=== PATIENT | male | born 1970 | race Caucasian/White ===

== ENCOUNTER 2016-03-09 18:02 | Inpatient (IN) | payer OTHER ==
[~2016-03-09] VITALS: Ht 185.4 cm; Wt 108.9 kg
[~2016-03-09 18:02] MED LIST: ABILIFY10 M1 PO; ASPIRIN EC81 M1 PO; ATENOLOL50 M1 PO; CLONAZEPAM2 M2 PO; CLONAZEPAM2 MG PO; CYCLOBENZAPRINE10 MG PO; DEPAKOTE ER500 M1 PO; DEPAKOTE500 MG PO; DIAZEPAM10 M1 PO; DIVALPROEX SOD500 M3 PO; DOLOPHINE HCL10 M1 PO; KLONOPIN 1MG TAB1 MG PO; KLONOPIN2 M1 PO; METHADONE H5 MG/5 M2 PO; METHADONE HCL10 M1 PO; METHADONE10 MG/5 M1 PO; MIRTAZAPINE15 M2 PO; MOTRIN IB200 M1 PO; MULTI-DAY VITA1 EACH PO; MULTIVITAMIN1 TAB PO; PHENOBARBITAL60 MG PO; PROPRANOLOL HCL10 M1 PO; PROTONIX40 M3 PO; REMERON30 M3 PO; SEROQUEL (MONO200 MG PO; SEROQUEL100 M1 PO; SEROQUEL300 M1 PO; SEROQUEL300 MG PO; SEROQUEL400 M1; SEROQUEL50 MG PO; TRAZODONE HCL150 M1 PO
--- NOTE | 2016-03-09 18:08 | NUR ---
STATES "I WANT TO KILL MYSELF". "I NEED TO TALK TO SOME ONE. I HAVE STUFF GOING ON". HAS NO SPECIFIC PLAN. DENIES HI. STATES HE WAS ADMITTED LAST MONTH TO [facility].
--- NOTE | 2016-03-09 18:16 | NUR ---
PT AMBULATORY TO ROOM # 13, SECURITY CALLED FOR WANDING, SITTER AT DOORWAY.
--- NOTE | 2016-03-09 18:23 | ED PSYCHIATRIC COMPLAINT ---
History of Present Illness General Chief Complaint: Psychiatric Related Complaint Stated Complaint: +SI Source: patient Exam Limitations: no limitations Allergies Coded Allergies: carbamazepine (From TEGRETOL) (Intermediate, HIVES 01/12/16) phenytoin (Intermediate, HIVES 01/12/16) sertraline (SUICIDAL THOUGHTS 01/12/16) Reconcile Medications Aspirin (Ecotrin*) 81 MG TABLET.DR 1 TAB PO DAILY HEART/BLOOD (Reported) Atenolol 50 MG TABLET 1 TAB PO DAILY BP (Reported) Clonazepam (Klonopin) 1 MG TABLET 1 TAB PO BID ANXIETY (Reported) Divalproex Sodium (Depakote ER) 500 MG TAB.ER.24H 2 TAB PO BID SEIZURES ( Reported) Ibuprofen (Motrin Ib) 200 MG TABLET 800 MG PO DAILY PAIN (Reported) Methadone Hydrochloride (Methadone HCl) 10 MG TABLET 100 MG PO DAILY PAIN CONTROL (Reported) Mirtazapine (Remeron) 30 MG TABLET 75 MG PO QPM SLEEP (Reported) Multivitamin (Multi-Day Vitamins) 1 EACH TABLET 1 TAB PO DAILY VITAMIN ( Reported) Quetiapine Fumarate (Seroquel) 50 MG TABLET 1 TAB PO QPM SLEEP (Reported) Triage Note: STATES "I WANT TO KILL MYSELF". "I NEED TO TALK TO SOME ONE. I HAVE STUFF GOING ON". HAS NO SPECIFIC PLAN. DENIES HI. Triage Nurses Notes Reviewed? yes HPI: This patient is a 45-year-old male with a past medical history including substance abuse and hepatitis C as well as depression and anxiety who presented to the emergency department today for chief complaint of, "I want to hurt myself." The patient reports over the last 2 days he has been feeling increasingly more anxious and has been having thoughts of harming himself. He reported that in the past he tried overdosing. He reported that he does not have a specific plan this time but, "I am just thinking crazy." When asked if he wants to harm anyone else he reported, "now not really." The patient denied any alcohol or illicit drug use. He reported that he is currently on methadone maintenance and takes Clonopin. The patient reported that he recently found out that he may have liver cancer which he thinks may have triggered his anxiety. The patient denied any fevers, chills, chest pain, difficulty breathing, or abdominal pain. (TRENT RODGERS PA-C) Vital Signs & Intake/Output Vital Signs & Intake/Output Vital Signs Date Time Temp Pulse Resp B/P Pulse O2 O2 Flow FiO2 Ox Delivery Rate 03/11 1542 55 119/76 03/11 1223 59 118/56 03/11 0727 97.1 60 118/77 03/10 1957 96.6 57 125/75 03/10 1555 56 141/76 Past History Travel History Traveled to [place] past 21 day No Medical History Any Pertinent Medical History? 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 No (TRENT RODGERS PA-C) Review of Systems Review of Systems Constitutional: Reports: no symptoms. EENTM: Reports: no symptoms. Respiratory: Reports: no symptoms. Cardiovascular: Reports: no symptoms. GI: Reports: no symptoms. Genitourinary: Reports: no symptoms. Musculoskeletal: Reports: no symptoms. Skin: Reports: no symptoms. Neurological/Psychological: Reports: see HPI. All Other Systems: Reviewed and Negative (TRENT RODGERS PA-C) Physical Exam Physical Exam General Appearance: well developed/nourished, no apparent distress, alert, awake Neurological/Psychiatric: no motor/sensory deficits, awake, alert, calm, visually impaired teacher II- XII nml as tested, depressed affect, oriented x 3 Comments: Well-developed well-nourished person in no acute distress HEENT: Normal EENT exam, head normocephalic, moist mucous membranes Neck: Supple, no lymphadenopathy Back: Normal gait. Normal inspection Cardiovascular: Regular rate and rhythm with no murmurs, rubs, or gallops Respiratory: No respiratory distress. Breath sounds clear to auscultation bilaterally Extremity: Normal and equal pulses. Neuro: Alert oriented x3, cranial nerves II through XII grossly intact. Skin: No appreciable rash on exposed skin, skin is warm and dry. Psych: Mood and affect is normal SAD PERSONS Done? yes (VISHAL CARVALHO,TRENT) Progress Differential Diagnosis: drug intoxication, drug overdose, drug withdrawal, electrolyte abnormality, encephalitis, major depressive disorder, generalized anxiety disorder (TRENT RODGERS PA-C) Plan of Care: Orders Procedure Date/time Status INIT HSP (30 MIN) 03/10 UNK Complete Current Medications Sig/Greg Start time Last Medication Dose Stop Time Status Admin Quetiapine Fumarate 300 MG AT BEDTIME 03/11 2200 AC (Seroquel) Acetaminophen 650 MG Q4P PRN 03/09 2029 AC (Tylenol) Al Hydroxide/Mg 30 ML Q4-6 PRN PRN 03/09 2029 AC Hydroxide (Maalox Plus) Departure Departure Disposition: STILL A PATIENT Condition: Stable Clinical Impression Primary Impression: Depression Qualifiers: Depression Type: unspecified Qualified Code: F32.9 - Major depressive disorder, single episode, unspecified Referrals: PATIENT HAS NO PRIMARY CARE DR Departure Forms: Customer Survey General Discharge Information Psych Admission Note Psychiatric Admission: I have seen and evaluated HEATHER DE LA ROSA. I have also reviewed all the pertinent lab results and diagnostic results. HEATHER DE LA ROSA will be admitted to our inpatient Psychiatric unit for treatment and care. (TRENT RODGERS PA-C) PA/BIOFUELS PLANT OPERATIONS ENGINEER Co-Sign Statement Statement: ED Attending supervision documentation- [] I saw and evaluated the patient. I have also reviewed all the pertinent lab results and diagnostic results. I agree with the findings and the plan of care as documented in the PA's/BIOFUELS PLANT OPERATIONS ENGINEER's documentation. [x] I have reviewed the ED Record and agree with the PA's/BIOFUELS PLANT OPERATIONS ENGINEER's documentation. [] Additions or exceptions (if any) to the PAs/BIOFUELS PLANT OPERATIONS ENGINEER's note and plan are summarized below: [] (ROB BARCLAY DO) (Tylenol) Al Hydroxide/Mg 30 ML Q4-6 PRN PRN 03/09 2029 AC Hydroxide (Maalox Plus) Ibuprofen 400 MG Q6P PRN 03/09 2029 AC (Motrin) Magnesium Hydroxide 30 ML Q6-PRN PRN 03/09 2029 AC (Milk Of Magnesia) Laboratory Tests 03/09/16 1832: Urine Opiates Screen < 100.00, Methadone Screen > 735 H, Barbiturate Screen < 60, Ur Phencyclidine Scrn 7.00, Amphetamines Screen 172, U Benzodiazepines Scrn 193, Urine Cocaine Screen < 50, Urine Cannabis Screen < 5.00 03/09/16 1826: Anion Gap 9, Estimated GFR > 60, BUN/Creatinine Ratio 31.1 H, Glucose 85, Calcium 9.7, Total Bilirubin 0.7, AST 50, ALT 56, Alkaline Phosphatase 51, Total Protein 7.9, Albumin 4.4, Globulin 3.5, Albumin/Globulin Ratio 1.3, CBC w Diff NO MAN DIFF REQ, RBC 4.76, MCV 90.8, MCH 30.6, RDW 13.4, MPV 8.3, Gran % 60.8, Lymphocytes % 26.7, Monocytes % 11.5 H, Eosinophils % 0.8, Basophils % 0.2, Absolute Granulocytes 3.1, Absolute Lymphocytes 1.3, Absolute Monocytes 0.6, Absolute Eosinophils 0, Absolute Basophils 0, PUBS MCHC 33.7, Valproic Acid 37.1 L, Serum Alcohol < 10.0 Departure Departure Disposition: STILL A PATIENT Condition: Stable Clinical Impression Primary Impression: Depression Qualifiers: Depression Type: unspecified Qualified Code: F32.9 - Major depressive disorder, single episode, unspecified Referrals: PATIENT HAS NO PRIMARY CARE DR Departure Forms: Customer Survey General Discharge Information Psych Admission Note Psychiatric Admission: I have seen and evaluated HEATHER DE LA ROSA. I have also reviewed all the pertinent lab results and diagnostic results. HEATHER DE LA ROSA will be admitted to our inpatient Psychiatric unit for treatment and care. (VISHAL CARVALHO,TRENT) PA/BIOFUELS PLANT OPERATIONS ENGINEER Co-Sign Statement Statement: ED Attending supervision documentation- [] I saw and evaluated the patient. I have also reviewed all the pertinent lab results and diagnostic results. I agree with the findings and the plan of care as documented in the PA's/BIOFUELS PLANT OPERATIONS ENGINEER's documentation. [x] I have reviewed the ED Record and agree with the PA's/BIOFUELS PLANT OPERATIONS ENGINEER's documentation. [] Additions or exceptions (if any) to the PAs/BIOFUELS PLANT OPERATIONS ENGINEER's note and plan are summarized below: [] (ROB BARCLAY DO
[2016-03-09 18:37] LABS: ABSOLUTE BASOPHIL COUNT 0 /CUMM (0.0-0.2); ABSOLUTE EOSINOPHIL COUNT 0 /CUMM (0.0-0.7); ABSOLUTE GRANULOCYTE CT 3.1 /CUMM (1.4-6.5); ABSOLUTE LYMPH COUNT 1.3 /CUMM (1.2-3.4); ABSOLUTE MONOCYTE COUNT 0.6 /CUMM (0.10-0.60); BASOPHIL % 0.2 % (0.0-2.0); EOSINOPHIL % 0.8 % (0-5); GRANULOCYTE % 60.8 % (42.2-75.2); HEMATOCRIT 43.2 % (42-52); MEAN CORPUSCULAR HGB 30.6 PG (27.0-31.0); MEAN CORPUSCULAR HGB CONC 33.7 G/DL (33.0-37.0); MEAN CORPUSCULAR VOLUME 90.8 FL (80.0-94.0); MEAN PLATELET VOLUME 8.3 FL (7.4-10.4); PLATELET COUNT 192 /CUMM (130-400); RBC DISTRIBUTION WIDTH 13.4 % (11.5-14.5); RED BLOOD CELL CT 4.76 /CUMM (4.70-6.10); WHITE BLOOD CELL COUNT 5.1 /CUMM (4.8-10.8)
--- NOTE | 2016-03-09 18:39 | NUR ---
2 personal belongings put into closet and 1 Valuables bag put into ED safe
--- NOTE | 2016-03-09 19:01 | NUR ---
VERIFIED MEDS WITH PT. DAHLIA BURDETT IN [place] # [phone] CALLED AND SPOKE WITH SHELLY TO VERIFY PT'S METHADONE DOSE, WHICH HE STATES IS 125MG "I MISSED THE DOSE TODAY, I COULDN'T GET THERE", AWAITING RETURN CALL FOR VERIFICATION.
--- NOTE | 2016-03-09 19:05 | NUR ---
ASSUMED CARE OF PT PER RN PAT.
--- NOTE | 2016-03-09 19:11 | NUR ---
SPOKE WITH ARMANDO FROM [facility] [place], PT'S METHADONE DOSE IS 125MG DAILY, PER ARMANDO "VERIFIED PT'S METHADONE DOSE WITH [facility] LAST NIGHT AT 5PM".
--- NOTE | 2016-03-09 19:17 | NUR ---
PT STATING "I WAS AT [facility] YESTERDAY, BUT I DIDN'T GET MEDICATED WITH METHADONE".
--- NOTE | 2016-03-09 19:21 | NUR ---
TRENT ORELLANA IN TO
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
--- NOTE | 2016-03-09 21:28 | NUR ---
PT CALM, COOPERATIVE AT THIS TIME
--- NOTE | 2016-03-09 22:19 | NUR ---
THIS RN ATTEMPTED TO GO IN MEDICATED PT WITH 50MG SERAQUOL, 1000MG DEPAKOTE, AND 45MG REMERON AND PT THEN REFUSED STATING "I TAKE 1MG KLONPIN AT NIGHT AND IM NOT TAKING ANY OF MY MEDICATIONS UNTIL I GET THE KLONPIN."
[2016-03-09 22:53] VITALS: BP 141/75
[2016-03-09] MEDS ORDERED: KLONOPIN1 M1 PO (23:05)
--- NOTE | 2016-03-09 23:50 | NUR ---
PT ADMITTED TO [facility] AT 2300 ALERT ORIENTED FEELING DEPRESSED BUT NOT SUICIDAL AT THIS TIME. INTERVIEW OBTAINED PT. ORIENTED TO SURROUNDINGS. PT. COOPERATIVE WITH CARE AWAITING MEDS TO BE 0RDERED. VSS.
[2016-03-10 07:40] VITALS: BP 134/78
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
[2016-03-10 13:17] VITALS: BP 130/71
--- NOTE | 2016-03-10 13:50 | NUR ---
PT IS COMPLIANT AND COOPERATIVE. MOOD IS STABLE WITH A CONSTRICTED AFFECT. PT DENIES SI AT THIS TIME, NO COMPLAINTS OFFERED. PT IS PRESENT ON THE UNIT AND HAS SOME INTERACTION WITH PEERS AND STAFF. PT HAS ATTENDED A COUPLE GROUPS. NO REPORTS OF AH/VH, NO SIGNS OF ACTIVE PSYCHOSIS NOTED. VITALS ARE STABLE, APPETITE IS GOOD.
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
[2016-03-10 15:55] VITALS: BP 141/76
--- NOTE | 2016-03-10 16:34 | SOCIAL WORKER PROG NOTE PSYCH ---
Social Work Progress Note Progress Note Met with patient briefly for the first time today since re-admission to the hospital. Patient was in bed most of the day and had little to say when we met. Patient was vague with his responses but endorsed SI with no plan. He reported feeling safe in the hospital at present and would not act on any thoughts or feelings. Patient encouraged to attend groups and engage in the community more.
[2016-03-10 19:58] VITALS: BP 125/75
--- NOTE | 2016-03-10 23:23 | NUR ---
EVENING NOTE- ISOLATIVE, OOB FOR VS AND MEDS. IRRITABLE EDGE, OVERALL COOPERATIVE. NO ISSUES.
--- NOTE | 2016-03-11 04:33 | NUR ---
SLEPT WELL WITH NO COMPLAINTS OFFERED.
[2016-03-11 07:27] VITALS: BP 118/77
[2016-03-11 12:23] VITALS: BP 118/56
--- NOTE | 2016-03-11 13:11 | NUR ---
PT WAS NOT VISIBLE MUCH IN THE MILIEU TODAY. PT DID ATTEND PLANNING MEETING AND TALKED ABOUT BEING IN A UP AND DOWN MOOD. HE DID NOT COME TO FOCUS GROUP THIS MORNING, INSTEAD PT STAYED IN HIS BEDROOM. IN THE MILIEU PT HAS BEEN COOPERATIVE WITH STAFF DIRECTION, AND INTERACTING WITH HIS PEERS. WHEN ASKED PT DENIES THOUGHTS TO SELF HARM
--- NOTE | 2016-03-11 14:08 | SOCIAL WORKER PROG NOTE PSYCH ---
Social Work Progress Note Progress Note Patient continues to endorse +SI today with no plan. He reports feeling depressed and wants to feel good again. He reports that he is unsure why he feels depressed but identifies that he would not feel safe if he were not in the hospital. 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 He is considering looking for a new apartment but agrees to not make any impulsive decisions and plans to return there after discharge. Patient reports that he feels safe in the hospital and has agreed to attend groups on the unit and engage appropriately in the milieu.
[2016-03-11 15:42] VITALS: BP 119/76
--- NOTE | 2016-03-11 15:54 | CP SOUTH PROGRESS NOTE PSYCH ---
Psych (Inpt) Progress Note Progress Note Progress Note: I discussed this patient's progress to date, current mental status, treatment process in the context of the treatment plan, and discharge planning with staff/ team in the daily morning inpatient team meeting. I also met with the patient myself in individual session. OBJECTIVE: Current Medications Sig/Greg Start time Last Medication Dose Route Stop Time Status Admin Acetaminophen 650 MG Q4P PRN 03/09 2029 AC PO Al Hydroxide/Mg 30 ML Q4-6 PRN PRN 03/09 2029 AC Hydroxide PO Aspirin 81 MG DAILY 03/10 1000 AC 03/11 PO 0734 Atenolol 50 MG DAILY 03/10 1000 AC 03/11 PO 0735 Clonazepam 1 MG BID 03/09 235 AC 03/11 PO 03/16 235 0735 Divalproex Sodium 500 MG 03/11 0800 AC 03/11 PO 0734 Divalproex Sodium 1,000 MG AT BEDTIME 03/10 2200 AC 03/10 PO 2123 Docusate Sodium 100 MG TID 03/09 235 AC 03/11 PO 0734 Haloperidol 5 MG Q6-PRN PRN 03/09 2045 AC 03/11 PO 1419 Ibuprofen 400 MG .STK-MED ONE 03/11 0657 DC PO 03/11 0658 Ibuprofen 400 MG Q6P PRN 03/09 2029 AC 03/11 PO 1419 Methadone HCl 5 MG .STK-MED ONE 03/11 0656 DC PO 03/11 0657 Methadone HCl 125 MG 03/10 0600 AC 03/11 PO 0701 Mirtazapine 45 MG AT BEDTIME 03/09 2199 AC 03/10 PO 2124 Multivitamins 1 TAB DAILY 03/10 1000 AC 03/11 PO 0735 Nicotine 7 MG 03/10 1545 AC 03/11 TOP 0734 Quetiapine Fumarate 300 MG AT BEDTIME 03/11 2199 UNVr PO Quetiapine Fumarate 200 MG AT BEDTIME 03/10 220 DC 03/10 PO 2124 Vital Signs Date Time Temp Pulse Resp B/P Pulse O2 O2 Flow FiO2 Ox Delivery Rate 03/11 1542 55 119/76 03/11 1223 59 118/56 03/11 726 97.1 60 118/77 03/10 1958 96.6 57 125/75 03/10 1555 56 141/76 ASSESSMENT: Patient continues to complain of depression, anxiety, suicidal ideation, and auditory hallucinations telling him "you're not safe right now." Tolerating his medications well. States he did not sleep well last night after taking Seroquel 200 mg at bedtime. Depression:6/10; Anxiety:8/10 (with 10 the worst.) Denies homicidal ideation, visual hallucinations, paranoid ideation. Speech is well articulated, goal-directed, average in rate, volume and tone. Calm, cooperative and logical. Sad, quiet. Often isolating in his room during the day. He is out in the community intermittently. The patient understands the risks/benefits/side effects of the medication and is agreeable to continue taking them. PLAN: Depakote level on Monday morning. Consider increasing Depakote if indicated to be within therapeutic values. Increase Seroquel to 300 mg at bedtime for auditory hallucinations, suicidal ideation, and sleep. Patient has tolerated higher doses of Seroquel in the past. Continue with current management as patient is improving. Continue to provide support and encouragement.
[2016-03-11 19:59] VITALS: BP 114/71
--- NOTE | 2016-03-11 21:28 | NUR ---
PT IS STABLE WITH FLAT AFFECT. SPENT THE ENTIRE EVENING SHIFT IN BED, SLEEPING. OOB FOR VS/MEDICATIONS AND DINNER ONLY. NO ENGAGEMENT WITH STAFF/PEERS. VS ARE STABLE AND DENIES ANY SI/HI.
[2016-03-12 08:19] VITALS: BP 139/73
--- NOTE | 2016-03-12 11:58 | CP SOUTH PROGRESS NOTE PSYCH ---
Psych (Inpt) Progress Note Progress Note Include the following elements, when applicable: Involvement in the active treatment of the patient with behavioral observations of the patient and the patient's response to the treatment. Review of the ongoing treatment process in the context of the treatment plan. Indication of how multi-disciplinary staff members are carrying out the treatment plan. Plans for future interventions and recommendations for revision of the treatment plan. Liaison with other physicians/providers. Progress Note: Stated that he continues to hear voices, depressed and anxious. Stated that the voices are a humming and occasionally tell him to hurt himself. Stated that he doesnt want to act on the voices and feels safe here, but has acted on the voices before. Worst thing he has done with regards to the voices was overdose in 1994; and another overdose in 1999 on tylenol. No other recent responding to command hallucinations. Stated that he prefers seroquel to haldol for PRN medication. MSE: middle aged man, adequate grooming. Fair to poor eye contact. Calm, soft spoken, somewhat distant but cooperative. Mild psychomotor slowing. No other movement d/o. Speech soft, regular rate. Mood neutral, affect constricted. Thought process linear. No noted thought content abnormalities noted. Denies SI/ HI. Stated that he has infrequent hallucinations, not internally preoccupied. Insight fair, judgment adequate. Risk associated w/ command hallucinations, paranoia and hx of significant psychiatric tx and drug use hx, in addition to chronic medical problems. Manage w/ education, med titration, mileu therapy, groups. A: 45 y/o man w/ hx psychotic illness, drug use hx, HCV, liver disease, admitted w/ depression, suicidal thinking and AH; improving slowly. Plan: Increase seroquel to 400mg at night time to target psychotic sx; change PRN to seroquel q8hrs PRN for agitation/hallucinations. VPA level tmr, will titrate vpa dose accoridnly. Start nexium 20mg orally daily for GERD; he stated he was taking it in his sober house, was not on his med list.
[2016-03-12 12:47] VITALS: BP 107/63
--- NOTE | 2016-03-12 13:56 | NUR ---
PT IS COMPLIANT AND COOPERATIVE. MOOD IS STABLE WITH A CONSTRICTED AFFECT. PT DENIES SI AT THIS TIME, NO COMPLAINTS OFFERED. PT IS PRESENT IN THE COMMUNITY AND INTERACTING WITH PEERS AND STAFF. PT ATTENDED ONE GROUP TODAY. VITALS ARE STABLE, APPETITE IS GOOD.
[2016-03-12 16:12] VITALS: BP 109/67
[2016-03-12 20:22] VITALS: BP 122/67
--- NOTE | 2016-03-12 22:52 | NUR ---
PT IS CALM, COOPERATIVE WITH STAFF AND PEERS, AND COMPLIANT WITH UNIT RULES. PT HAS BEEN IN ROOM MOST OF THE SHIFT, OUT OF MILIEU, SLEEPING. PT MOOD IS STABLE, AFFECT IS EUTHYMIC TO FULL RANGE, COMMUNICATION IS NORMAL, AND APPETITE IS NORMAL. PT DENIES SI AT THIS TIME.
--- NOTE | 2016-03-13 05:42 | NUR ---
PATIENT SLEPT ALL NIGHT.
[2016-03-13 07:46] VITALS: BP 140/78
[2016-03-13 12:31] VITALS: BP 112/64
--- NOTE | 2016-03-13 14:43 | NUR ---
Pt is A&O X 3, compliant with medication and group therapies/ activities, pt has been isolating in his room mostly on bed rest, denies any adverse s/s or pain. Mood is stable with constricted affect, has minimal interaction with other peers and staff members. vital sign is stable and within the patient's acceptable range, denies any thought of self-harm or to someone else.
--- NOTE | 2016-03-13 15:33 | CP SOUTH PROGRESS NOTE PSYCH ---
Psych (Inpt) Progress Note Progress Note Include the following elements, when applicable: Involvement in the active treatment of the patient with behavioral observations of the patient and the patient's response to the treatment. Review of the ongoing treatment process in the context of the treatment plan. Indication of how multi-disciplinary staff members are carrying out the treatment plan. Plans for future interventions and recommendations for revision of the treatment plan. Liaison with other physicians/providers. Progress Note: Stated that the voices continue, no significant change, but that he is not that bothered by them. in the community states that he needs to keep himself occupied rather than stay at home when they recur. Stated that he will try to take the 400mg seroquel (only took 300mg) and has been taking prn seroquel, in order to help manage the voices. Has been somewhat social w/ peers, watching tv at times. No behavioral issues. MSE: middle aged man, gynecomastia present; fair grooming. Somewhat nervous. Fair eye contact. Soft spoken and calm overall. No psychomotor changes evident today. No tics or tremors noted. Mood is neutral to optimistic. Affect is congruent, constricted overall. Thought process is concrete, perhaps impoverished. Not actively hallucinating and denies any recent hallucinations. No command hallucinations, no thoughts to harm himself. Insight fair, judgment adequate. Risk associated w/ command hallucinations, paranoia and hx of significant psychiatric tx and drug use hx, in addition to chronic medical problems. Manage w/ education, med titration, mileu therapy, groups. A: 45 y/o man w/ hx psychotic illness, drug use hx, HCV, liver disease, admitted w/ depression, suicidal thinking and AH; improving slowly. Plan: continue current management VPA level 92, therapeutic; could go a bit higher but clinically the mood d/o sx appear fairly well controlled; chronic hallucinations appear to be what is bothering him most. Behaviorally in control.
[2016-03-13 16:23] VITALS: BP 107/70
[2016-03-13 20:12] VITALS: BP 126/75
--- NOTE | 2016-03-13 21:40 | NUR ---
PT IS ISOLATIVE AND WITHDRAWN, REMAINING IN BED FOR MAJORITY OF EVENING. REFUSED WRAP UP MEETING. COOPERATIVE AND COMPLIANT. NO COMPLAINTS OR SI REPORTED. PT HAS A STABLE MOOD AND FLAT AFFECT.
[2016-03-14 07:47] VITALS: BP 123/64
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
[2016-03-14 12:24] VITALS: BP 119/75
--- NOTE | 2016-03-14 14:10 | NUR ---
out in communiy going to groups. Mood is stable, blunted affect. denied thoughts of self harm when asked.
[2016-03-14 15:37] VITALS: BP 121/68
--- NOTE | 2016-03-14 16:18 | CP SOUTH PROGRESS NOTE PSYCH ---
Psych (Inpt) Progress Note Progress Note Progress Note: I discussed this patient's progress to date, current mental status, treatment process in the context of the treatment plan, and discharge planning with staff/ team in the daily morning inpatient team meeting. I also met with the patient myself in individual session. SUBJECTIVE: "I have a lot of anxiety. My mind is racing." OBJECTIVE: Current Medications Sig/Greg Start time Last Medication Dose Route Stop Time Status Admin Acetaminophen 650 MG Q4P PRN 03/09 2030 AC PO Al Hydroxide/Mg 30 ML Q4-6 PRN PRN 03/09 2030 AC Hydroxide PO Aspirin 81 MG DAILY 03/10 1000 AC 03/14 PO 0812 Atenolol 50 MG DAILY 03/10 1000 AC 03/14 PO 0812 Clonazepam 1 MG BID 03/09 2353 AC 03/14 PO 03/16 2352 0813 Divalproex Sodium 500 MG 0803/11 0800 AC 03/14 PO 0812 Divalproex Sodium 1,000 MG AT BEDTIME 03/10 2200 AC 03/13 PO 2148 Docusate Sodium 100 MG TID 03/09 2353 AC 03/14 PO 1600 Ibuprofen 400 MG .STK-MED ONE 03/14 0641 DC PO 03/14 0642 Ibuprofen 400 MG Q6P PRN 03/09 2030 AC 03/14 PO 0646 Methadone HCl 5 MG .STK-MED ONE 03/14 0640 DC PO 03/14 0641 Methadone HCl 10 MG .STK-MED ONE 03/14 0639 DC PO 03/14 0640 Methadone HCl 125 MG 03/10 0600 AC 03/14 PO 0647 Mirtazapine 45 MG AT BEDTIME 03/09 2200 AC 03/13 PO 2149 Multivitamins 1 TAB DAILY 03/10 1000 AC 03/14 PO 0812 Nicotine 7 MG 03/10 1545 AC 03/14 TOP 0812 Omeprazole 20 MG DAILY AC 03/12 1149 AC 03/14 PO 0646 Quetiapine Fumarate 25 MG 1200,1600 03/14 1430 AC 03/14 PO 1600 Quetiapine Fumarate 400 MG AT BEDTIME 03/12 2200 AC 03/13 PO 2148 Quetiapine Fumarate 25 MG Q8P PRN 03/12 1200 DC 03/12 PO 1509 Vital Signs Date Time Temp Pulse Resp B/P Pulse O2 O2 Flow FiO2 Ox Delivery Rate 03/14 1537 64 121/68 03/14 1224 73 119/75 03/14 0747 97.0 62 123/64 03/13 2011 97.4 62 126/75 03/13 1623 64 107/70 ASSESSMENT: Patient reports continuing depression and anxiety, intermittent suicidal ideation is improving. Patient states that he anticipates being able to leave the hospital in 2 days. It appears that patient is tolerating his medications well, however despite complaining of racing thoughts and anxiety has not taken prn Seroquel recently. Together we decided that instead of taking Seroquel as needed for anxiety, that we would place it as a standing order. He reports that he usually does not feel anxious in the morning, however anxiety starts to increase around noontime and the afternoon. Depression:7/10; Anxiety:7/10 (with 10 the worst.) Denies homicidal ideation, auditory hallucinations, visual hallucinations, paranoid ideation. Speech is well articulated, goal-directed, average in rate, volume and tone. Did not sleep that well last night, because he says his mind is "racing." His appetite is good. The patient understands the risks/benefits/side effects of the medication and is agreeable to continue taking them. PLAN: Standing order of Seroquel for noon and 4 PM. Continue with other current management as patient is improving. Continue to provide support and encouragement.
[2016-03-14 19:44] VITALS: BP 137/72
--- NOTE | 2016-03-14 23:24 | NUR ---
PT IS ISOLATIVE AND WITHDRAWN, SPENDING TIME ALONE WHEN IN [place], BUT MOSTLY IN ROOM OUT OF POPULATION. PT IS CALM, COOPERATIVE WITH STAFF AND PEERS, AND COMPLIANT WITH UNIT RULES WHILE IN [place]. PT MOOD IS STABLE, AFFECT IS FLAT/CONSTRICTED, COMMUNICATION IS NORMAL BUT SPARSE, AND APPETITE IS NORMAL. PT DENIES SI AT THIS TIME.
--- NOTE | 2016-03-15 07:08 | NUR ---
PATIENT SLEPT ALL NIGHT.
[2016-03-15 07:36] VITALS: BP 138/70
[2016-03-15 12:15] VITALS: BP 123/78
--- NOTE | 2016-03-15 12:27 | SOCIAL WORKER PROG NOTE PSYCH ---
Social Work Progress Note Progress Note Patient continues to endorse +SI with no specific plan. Patient reports that he spoke with his visiting nurse, Omer, last evening. Patient reports that he feels very close to his VNS and has great support from him. He reports feeling like he has a good support system when he discharges home and is also looking forward to his brother coming into town tomorrow. Patient continues to report a desire to look for new housing when he gets home. Patient plans to return to methadone maintenance at [facility] and is interested in seeking a new OP psychiatrist for med management. I will work on this today with him and make referral as needed.
--- NOTE | 2016-03-15 14:44 | NUR ---
Pt was in and out of the milieu today. His goal was to "prepare for discharge" but did not happen. Pt has been in some groups, but not in all of them. Pt spends a lot of time in his room, away from his peers. He has been cooperative with staff direction, and denies thoughts of harming self when asked.
[2016-03-15 16:03] VITALS: BP 115/66
--- NOTE | 2016-03-15 18:02 | CP SOUTH PROGRESS NOTE PSYCH ---
Psych (Inpt) Progress Note Progress Note Progress Note: I discussed this patient's progress to date, current mental status, treatment process in the context of the treatment plan, and discharge planning with staff/ team in the daily morning inpatient team meeting. I also met with the patient myself in individual session. A total of 15 minutes was spent with the patient with more than 50% spent in counseling and/or coordination of care. SUBJECTIVE: "I'm still a little depressed. Seroquel is helping." OBJECTIVE: Current Medications Sig/Greg Start time Last Medication Dose Route Stop Time Status Admin Acetaminophen 650 MG Q4P PRN 03/09 2030 AC 03/15 PO 1041 Al Hydroxide/Mg 30 ML Q4-6 PRN PRN 03/09 2029 AC Hydroxide PO Aspirin 81 MG DAILY 03/10 1000 AC 03/15 PO 0840 Atenolol 50 MG DAILY 03/10 1000 AC 03/15 PO 0840 Clonazepam 1 MG BID 03/09 2353 AC 03/15 PO 03/16 2352 0838 Divalproex Sodium 500 MG 03/11 0800 AC 03/15 PO 0839 Divalproex Sodium 1,000 MG AT BEDTIME 03/10 2200 AC 03/14 PO 2125 Docusate Sodium 100 MG TID 03/09 2353 AC 03/15 PO 1737 Ibuprofen 400 MG .STK-MED ONE 03/15 0833 DC PO 03/15 0834 Ibuprofen 400 MG Q6P PRN 03/09 2030 AC 03/15 PO 0840 Methadone HCl 125 MG 03/10 0600 AC 03/15 PO 0708 Mirtazapine 45 MG AT BEDTIME 03/09 2200 AC 03/14 PO 2125 Multivitamins 1 TAB DAILY 03/10 1000 03/15 PO 0840 Nicotine 7 MG 03/10 1545 AC 03/15 TOP 0839 Omeprazole 20 MG DAILY AC 03/12 1149 AC 03/15 PO 0709 Quetiapine Fumarate 25 MG 1200,1600 03/14 1430 AC 03/15 PO 1737 Quetiapine Fumarate 400 MG AT BEDTIME 03/12 2200 AC 03/14 PO 2127 Vital Signs Date Time Temp Pulse Resp B/P Pulse O2 O2 Flow FiO2 Ox Delivery Rate 03/15 1603 61 115/66 03/15 1215 70 123/78 03/15 0736 96.8 71 138/70 03/14 1943 97.7 63 137/72 ASSESSMENT: Patient reports he is improving. Anticipates discharge tomorrow. Tolerating medications well, to good effect. Offers no complaints today. 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 He takes some pride in this volunteer work. Depression: 6/10; Anxiety: 0/10 (with 10 the worst.) Denies suicidal ideation, homicidal ideation, auditory hallucinations, visual hallucinations, paranoid ideation. Patient states and also believes that he will not kill himself. States he "does not know" if he is hearing voices. Slept well last night, his appetite is good. Speech is well articulated, goal-directed, average in rate, volume and tone. The patient understands the risks/benefits/side effects of the medication and is agreeable to continue taking them. PLAN: Anticipate discharge tomorrow. Continue with current management as patient is improving. Continue to provide support and encouragement.
[2016-03-15 20:02] VITALS: BP 142/80
--- NOTE | 2016-03-15 22:32 | NUR ---
Pt is in bed most of the shift came out for vital signs at 1900 mood is stable compliant and cooperative with the staff. No behavioral issues noted during the day. Vital signs are stable c/o lower back rn is aware. Will continue to monitor the dpt overnight.
[2016-03-16 07:57] VITALS: BP 123/76
--- NOTE | 2016-03-16 08:59 | NUR ---
PT IS SCHEDULED FOR D/C TO [facility] TODAY. HE REPORTS AND DEMONSTRATES IMPROVEMENT IN MOOD AND ABILITY TO FUNCTION.HE DENIES ANY SUICIDAL THOUHTS. HE AGREES WITH THE PLAN TO FOLLOW UP WITH [facility]. HE VERBALIZES A GOOD UNDERSTANDING OF HIS MED REGIME AND TREATMENT PLAN. PT IS GIVEN EDUCATION ON HIS ILLNESS AND ON SUICIDE PREVENTION
[2016-03-16] MEDS ORDERED: NICOTINE PATCH1 EAC1 TOP (09:25)
[2016-03-16] MEDS ORDERED: DIVALPROEX SOD500 M2 PO ×2 (09:28→09:29)
[2016-03-16] MEDS ORDERED: QUETIAPINE FUM400 M1 PO (09:30)
--- NOTE | 2016-03-16 10:41 | SOCIAL WORKER PROG NOTE PSYCH ---
Social Work Progress Note Progress Note Patient to discharge the hospital today. Patient denies SI/HI/AH/VH at present. Patient is looking forward to returning home today and seeing his brother. Patient plans to return to methadone maintenance at [facility] and will be starting med management at [facility]. Patient has intake on 03/21/16 @ 10:45am and first med appointment on 03/25/16 @ 8:30am with Dr. Taylor. Patient is aware and plans to return. Patient will continue with VNS from [facility] as well. Patient is able to contract for safety at this time, mood is bright and affect is congruent with mood.
--- NOTE | 2016-03-16 10:46 | CP SOUTH PROGRESS NOTE PSYCH ---
Psych (Inpt) Progress Note Progress Note Progress Note: I discussed this patient's progress to date, current mental status, treatment process in the context of the treatment plan, and discharge planning with staff/ team in the daily morning inpatient team meeting. I also met with the patient myself in individual session. A total of 30 minutes was spent with the patient with more than 50% spent in counseling and/or coordination of care. SUBJECTIVE: I'm ready to go. I feel good. OBJECTIVE: Current Medications Sig/Greg Start time Last Medication Dose Route Stop Time Status Admin Acetaminophen 650 MG Q4P PRN 03/09 2030 AC 03/15 PO 1041 Al Hydroxide/Mg 30 ML Q4-6 PRN PRN 03/09 2030 AC Hydroxide PO Aspirin 81 MG DAILY 03/10 1000 AC 03/16 PO 0752 Atenolol 50 MG DAILY 03/10 1000 AC 03/16 PO 0752 Clonazepam 1 MG BID 03/09 2353 AC 03/16 PO 03/16 2352 0752 Divalproex Sodium 500 MG 03/11 0800 AC 03/16 PO 0751 Divalproex Sodium 1,000 MG AT BEDTIME 03/10 2200 AC 03/15 PO 2121 Docusate Sodium 100 MG TID 03/09 2353 AC 03/16 PO 0751 Ibuprofen 400 MG Q6P PRN 03/09 2030 AC 03/16 PO 0705 Methadone HCl 125 MG 03/10 0600 AC 03/16 PO 0704 Mirtazapine 45 MG AT BEDTIME 03/09 2200 AC 03/15 PO 2121 Multivitamins 1 TAB DAILY 03/10 1000 AC 03/16 PO 0752 Nicotine 7 MG 03/10 1545 AC 03/16 TOP 0751 Omeprazole 20 MG DAILY AC 03/12 1149 AC 03/16 PO 0704 Quetiapine Fumarate 25 MG 1200,1600 03/14 1430 AC 03/15 PO 1737 Quetiapine Fumarate 400 MG AT BEDTIME 03/12 2199 AC 03/15 PO 2121 Vital Signs Date Time Temp Pulse Resp B/P Pulse O2 O2 Flow FiO2 Ox Delivery Rate 03/16 756 97.5 72 123/76 03/15 2001 98.0 60 142/80 03/15 1603 61 115/66 03/15 1215 70 123/78 ASSESSMENT: Patient reports feeling well today, offers no complaints. Tolerating medications well, without complaint. States he feels safe and ready for discharge. He is looking forward to returning to his home in a sober house. 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 Depression: 0 /10; Anxiety: 0 /10 (with 10 the worst.) Denies suicidal ideation, homicidal ideation, auditory hallucinations, visual hallucinations, paranoid ideation. Patient states and also believes that he will not kill himself. Sleeping well at night. Good appetitie. Speech is well articulated, goal-directed, average in rate, volume and tone. Calm, pleasant, logical, cooperative. Logical. A&Ox3. The patient understands the risks/benefits/side effects of the medication and is agreeable to continue taking them. PLAN: Discharge today. Continue with current management as patient is improving. Continue to provide support and encouragement.
[2016-03-16] MEDS ORDERED: DOCUSATE SODIU100 M3 PO (10:47)
[2016-03-16] MEDS ORDERED: OMEPRAZOLE20 M2 PO (10:48)
--- NOTE | 2016-03-16 10:54 | DISCHARGE SUMMARY REPORT-PSYCH ---
Visit Information Visit Dates/Diagnosis' Admission Date: 03/09/16 Discharge Date: 03/16/16 Reason for Admission: Depressed and suicidal, for the past few days, in the context of increasing anxiety over Hep C and liver disease and treatment. This is the patient's 11th [facility] admission since 2014. Psy Discharge Primary Diag: Schizoaffective Disorder Psy Discharge Secondary Diag: Hep C; GERD; HTN; opiate use d//o, now on methadone. Benzo use d/o and stimulant use d/o, both now in apparent remission. Hospital Course Significant Lab Findings: Lab ALT 56 U/L 03/09/16 1826 AST 50 U/L 03/09/16 1826 BUN 28 mg/dL H 03/09/16 1826 BUN/Creatinine Ratio 31.1 % H 03/09/16 1826 Creatinine 0.9 mg/dL 03/09/16 1826 Estimated GFR > 60 ml/min 03/09/16 1826 TSH 3.120 uIU/mL 08/09/15 0540 Methadone Screen > 735 NG/ML H 03/09/16 1832 Valproic Acid 92.5 ug/mL 03/13/16 0606 Course Complications: None Consultations: Patient was seen for admission history and physical by Mono Zeng MD. Please refer to his note for additional information. Allergies: Coded Allergies: carbamazepine (From TEGRETOL) (Intermediate, HIVES 01/12/16) phenytoin (Intermediate, HIVES 01/12/16) sertraline (SUICIDAL THOUGHTS 01/12/16) Hospital Course/TX Response: The patient was monitored on the unit for safety, depression, suicidal ideation, auditory hallucinations, mood stability. He participated in multimodal treatments on the unit. He was medicated with Depakote for mood stability, Seroquel for clear thoughts and sleep, mirtazapine for sleep and depression. The patient tolerated these medications well, to good effect. In addition he takes daily methadone maintenance of 125 mg daily, as per [facility] in [place]. The patient declined to have a family meeting. He also declined to sign disclosure wavers, and so we were not able to share information with other medical providers. Today, the day of discharge, he reports feeling well today, offers no complaints. Tolerating medications well, without complaint. States he feels safe and ready for discharge. He is looking forward to returning to his home in a sober house. 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 Depression: 0 /10; Anxiety: 0 /10 (with 10 the worst.) Denies suicidal ideation, homicidal ideation, auditory hallucinations, visual hallucinations, paranoid ideation. Patient states and also believes that he will not kill himself. Sleeping well at night. Good appetitie. Speech is well articulated, goal-directed, average in rate, volume and tone. Calm, pleasant, logical, cooperative. Logical. A&Ox3. The patient understands the risks/benefits/side effects of the medication and is agreeable to continue taking them. Patient reports tolerating his medications well, without complaint. States he feels safe and ready for discharge. Discharge HBIPS - Tobacco Use Treatment Offered Post DC Medications Offered: Script Given-See Med List Post DC Tobacco Treatment Plan: Jan Tobacco Tx Pgm Program Appt Date: 03/23/16 Program Appt Time: 1600 - EtOH/Drug Use D/O Treatment Offered Post DC Medications Offered: NA-No EtOH/Drug Use D/O Post DC EtOH/SubAbuse TX Plan: NA-No EtOH/Drug Use D/O Metabolic Screening - Screen if on a Neuroleptic Medication - Metabolic screening should include: - Blood Pressure, BMI, Glucose or Hgb A1c, & a - Lipid profile from within the past 365 days. Metabolic Screening () Not Applicable, patient not on a neuroleptic. OR ([x]) Patient on a neuroleptic(s) . Enter below results for Glucose or Hemoglobin A1C, and lipid panel if obtained during the last 365 days. BMI: 31.600 Blood Pressure: 123/76 Laboratory Results (If applicable): Lab Cholesterol 129 MG/DL 08/09/15 0540 Cholesterol/HDL Ratio 3 % 08/09/15 0540 Glucose 85 mg/dL 03/09/16 1826 HDL Cholesterol 51 mg/dL 08/09/15 0540 Hemoglobin A1c 5.3 % 08/09/15 0540 LDL Cholesterol, Calc 60 mg/dL L 08/09/15 0540 Triglycerides 93 mg/dL 08/09/15 0540 Discharge Instructions General Discharge Information Discharge Medications: Discharge Medications- (Dose, route, freq, indication): START taking these NEW Home Medications: Nicotine (Nicotine Dose: On the skin, DAILY @8 AM Qty: 30 Called in to Patch) 7 MG/24 HOUR 7 Milligram for SMOKING CESSATION Refills: 0 Pharm 1 PATCH.TD24 Last Taken:03/16/16 Time:0800 Divalproex Sodium Dose: ORAL, AT BEDTIME for Qty: 28 Called in to (Divalproex Sodium) 1,000 MOOD STABILITY Refills: 0 Pharm 1 500 MG TABLET. Milligrsera Last Taken:03/15/16 Time:2119 Divalproex Sodium Dose: ORAL, DAILY @8 AM for Qty: 14 Called in to (Divalproex Sodium) 500 Milligram MOOD STABILITY Refills: 0 Pharm 1 500 MG TABLET. Last Taken:03/16/16 Time:0800 Quetiapine Fumarate Dose: ORAL, AT BEDTIME for Qty: 14 Called in to (Quetiapine 400 Milligram CLEAR THOUGHTS Refills: 0 Pharm 1 Fumarate) 400 MG Last Taken:03/15/16 TABLET Time:2119 Docusate Sodium Dose: ORAL, THREE TIMES DAILY Qty: 42 Called in to (Docusate Sodium) 100 Milligram for CONSTIPATION Refills: 0 Pharm 1 100 MG CAPSULE Last Taken:03/16/16 Time:0800 Omeprazole Dose: ORAL, DAILY BEFORE Qty: 14 Called in to (Omeprazole) 20 MG 20 Milligram BREAKFAST for GERD Refills: 0 Pharm 1 CAPSULE. Last Taken:03/16/16 Time:0700 CONTINUE taking these Home Medications: Mirtazapine (Remeron) 30 Dose: ORAL, Every night for MG TABLET 45 Milligram SLEEP Last Taken:03/15/16 Time:2119 Methadone Hydrochloride Dose: ORAL, DAILY for PAIN (Methadone HCl) 10 MG 125 Milligram CONTROL TABLET Last Taken:03/16/16 Time:0700 Ibuprofen (Motrin Ib) Dose: ORAL, DAILY for PAIN 200 MG TABLET 800 Milligram PER PT Multivitamin (Multi-Day Dose: ORAL, DAILY for VITAMIN Vitamins) 1 EACH TABLET 1 Tablet Last Taken:03/16/16 Time:0800 Aspirin (Ecotrin*) 81 MG Dose: ORAL, DAILY for TABLET. 1 Tablet HEART/BLOOD Last Taken:03/16/16 Time:0800 Atenolol (Atenolol) 50 Dose: ORAL, DAILY for BP MG TABLET 1 Tablet Last Taken:03/16/16 Time:0800 Clonazepam (Klonopin) 1 Dose: ORAL, TWICE DAILY for MG TABLET 1 Tablet ANXIETY Last Taken:03/16/16 Time:0800 STOP taking these DISCONTINUED Home Medications: Quetiapine Fumarate (Seroquel) Dose: ORAL, AT BEDTIME for CLEAR 100 MG TABLET 100 Milligram THOUGHTS Reason Stopped: Changed Dose 1: [facility] [id number], [address] [place], [place] [id number] [facility] [id number] [address], [place] [id number] Multiple Neuroleptics: (x) Not Applicable OR Document below three failed attempts at monotherapy, or a plan to taper to monotherapy, or augmentation of Clozapine. () Patient's Diet: Regular Patient's Activity: No restrictions DC Disposition: Patient returning to his apartment in a sober house in [place]. Recommendations: Follow-up at [facility], and at [facility] for therapy and medication management. Referred To: Post Discharge Referrals Provider Referral Service Date: 03/17/16 Referred To: [[facility]] Notes: [address] [place], [place] Provider Referral Referred To: [[facility]] Notes: [address] [place] Intake appointment on: 03/21/16 at 10:45am You MUST attend the intake appointment prior to the medical appointment. Medication Management on: 03/25/2016 at 8:30am Copies To: Outpatient Psychiatry
== END 2016-03-16 11:25 | DRG 750 ==
LOC: ENRESERVTM → ENRESERVDT → ERH 18:02 → CP SOUTH 19:22 → ENPENDDIS 19:22 → ERHI 19:22 → CP SOUTH 22:45
PROVIDERS: Physician Assistant; ADMIT Psychiatry & Neurology Psychiatry
DX: F25.9 Schizoaffective disorder, unspecified (principal); B19.20 Unspecified viral hepatitis C without hepatic coma; K21.9 Gastro-esophageal reflux disease without esophagitis; I10 Essential (primary) hypertension; F11.10 Opioid abuse, uncomplicated; F11.20 Opioid dependence, uncomplicated
CPT/HCPCS: 80307; 93005; 93010; G0480; J3490

== ENCOUNTER 2016-04-05 15:10 | Emergency (ER) | payer OTHER ==
[~2016-04-05] VITALS: Ht 185.4 cm; Wt 113.4 kg
[~2016-04-05 15:10] MED LIST changes: +DIVALPROEX SOD500 M2 PO; +DOCUSATE SODIU100 M3 PO; +KLONOPIN1 M1 PO; +NICOTINE PATCH1 EAC1 TOP; +OMEPRAZOLE20 M2 PO; +QUETIAPINE FUM400 M1 PO
[2016-04-05 16:03] LABS: ABSOLUTE BASOPHIL COUNT 0 /CUMM (0.0-0.2); ABSOLUTE EOSINOPHIL COUNT 0 /CUMM (0.0-0.7); ABSOLUTE GRANULOCYTE CT 3.9 /CUMM (1.4-6.5); ABSOLUTE LYMPH COUNT 1.5 /CUMM (1.2-3.4); ABSOLUTE MONOCYTE COUNT 0.5 /CUMM (0.10-0.60); BASOPHIL % 0.2 % (0.0-2.0); EOSINOPHIL % 0.6 % (0-5); GRANULOCYTE % 65.5 % (42.2-75.2); HEMATOCRIT 45.2 % (42-52); MEAN CORPUSCULAR HGB 30.1 PG (27.0-31.0); MEAN CORPUSCULAR HGB CONC 33.1 G/DL (33.0-37.0); MEAN CORPUSCULAR VOLUME 91.1 FL (80.0-94.0); MEAN PLATELET VOLUME 7.5 FL (7.4-10.4); PLATELET COUNT 192 /CUMM (130-400); RBC DISTRIBUTION WIDTH 13.5 % (11.5-14.5); RED BLOOD CELL CT 4.97 /CUMM (4.70-6.10); WHITE BLOOD CELL COUNT 5.9 /CUMM (4.8-10.8)
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
--- NOTE | 2016-04-05 19:54 | ED PSY CRISIS COLLATERAL NOTE ---
Collateral Note Collateral Note Family/Inform/El Contacts: This clinician called Pt collateral contact and no answer on the number provided.
[2016-04-05 20:14] VITALS: BP 112/66
== END 2016-04-05 20:23 ==
LOC: ERH 15:10
PROVIDERS: Emergency Medicine
DX: F32.9 Major depressive disorder, single episode, unspecified (principal); R45.851 Suicidal ideations; F25.9 Schizoaffective disorder, unspecified; F41.9 Anxiety disorder, unspecified; F31.9 Bipolar disorder, unspecified; B19.20 Unspecified viral hepatitis C without hepatic coma; F17.210 Nicotine dependence, cigarettes, uncomplicated
CPT/HCPCS: 80307; G0463; G0480; J3490

== ENCOUNTER 2016-05-28 15:27 | Emergency (ER) | payer OTHER ==
[~2016-05-28] VITALS: Ht 185.4 cm; Wt 115.7 kg
[2016-05-28 15:49] LABS: ABSOLUTE BASOPHIL COUNT 0 /CUMM (0.0-0.2); ABSOLUTE EOSINOPHIL COUNT 0 /CUMM (0.0-0.7); ABSOLUTE GRANULOCYTE CT 4.2 /CUMM (1.4-6.5); ABSOLUTE LYMPH COUNT 1.8 /CUMM (1.2-3.4); ABSOLUTE MONOCYTE COUNT 0.5 /CUMM (0.10-0.60); BASOPHIL % 0.4 % (0.0-2.0); EOSINOPHIL % 0.5 % (0-5); GRANULOCYTE % 63.6 % (42.2-75.2); HEMATOCRIT 46.1 % (42-52); MEAN CORPUSCULAR HGB 30.8 PG (27.0-31.0); MEAN CORPUSCULAR HGB CONC 33.6 G/DL (33.0-37.0); MEAN CORPUSCULAR VOLUME 91.5 FL (80.0-94.0); MEAN PLATELET VOLUME 7.8 FL (7.4-10.4); PLATELET COUNT 195 /CUMM (130-400); RBC DISTRIBUTION WIDTH 12.7 % (11.5-14.5); RED BLOOD CELL CT 5.04 /CUMM (4.70-6.10); WHITE BLOOD CELL COUNT 6.6 /CUMM (4.8-10.8)
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
[2016-05-28] MEDS ORDERED: TRAZODONE HCL100 M1 PO (16:29)
[2016-05-28] MEDS ORDERED: CYCLOBENZAPRINE10 M1 PO (16:31)
[2016-05-28] MEDS ORDERED: PANTOPRAZOLE SO40 M1 PO (16:31)
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
--- NOTE | 2016-05-28 21:25 | ED PSY CRISIS COLLATERAL NOTE ---
Collateral Note Collateral Note Family/Inform/El Contacts: Crisis attempted to contact patient's friend, Petr Lewis, at [phone]. Number was constantly busy through out shift.
--- NOTE | 2016-05-29 12:22 | ED PSYCHIATRIST/APRN CONSULT ---
Psychiatrist/[facility] ED Consult Assessment and Plan: Pt seen as f/u. Initally told crisis that feeling better and wants to leave but could not specify what had changed. On interview today, pt notes that moods are up and down "sometimes I want to kill myself or kill other people when I get angry." Noted feeling better this morning but then also noted that "moods come and go" and was not sure if SI or HI would come back. Feels needs help with lability and anger. MSE Appears as stated age, morbidly obese. Cooperative behavior, good, appropriate eye contact. Nl speech rate and prosody. No psychomotor retardation or agitation. Mood OK I guess Affect sad, tearful, depressed, constricted, appropriate,liable. Linear and goal directed thought process. Denies SI or HI. Does not appear to be responding to internal stimuli. Denies AVHs, paranoia, or delusions. I/J: limited Given mood labilty and directed SI and HI, concern danger to self and others. Awaiting acute psych stablization. Bed search underway
[2016-05-30 16:36] VITALS: BP 121/68
== END 2016-05-30 17:29 | disposition other institution (70) ==
LOC: ERH 15:27
PROVIDERS: Emergency Medicine
DX: F32.9 Major depressive disorder, single episode, unspecified (principal); R56.9 Unspecified convulsions; F41.9 Anxiety disorder, unspecified; F31.9 Bipolar disorder, unspecified; F25.9 Schizoaffective disorder, unspecified; B19.20 Unspecified viral hepatitis C without hepatic coma; F17.210 Nicotine dependence, cigarettes, uncomplicated
CPT/HCPCS: 80307; G0463; G0480

== ENCOUNTER 2017-05-31 20:27 | Inpatient (IN) | payer OTHER ==
[~2017-05-31] VITALS: Ht 185.4 cm; Wt 122.5 kg
[~2017-05-31 20:27] MED LIST changes: +ALPRAZOLAM2 M2 PO; +CYCLOBENZAPRINE10 M1 PO; +GUANFACINE HCL E2 MG PO; +NICOTINE PATCH1 EAC2 TOP; +PANTOPRAZOLE SO40 M1 PO; +QUETIAPINE FUM200 M1 PO; +REMERON15 M2 PO; +SEROQUEL50 M1 PO; +TRAZODONE HCL100 M1 PO
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
[2017-05-31 21:19] LABS: ABSOLUTE BASOPHIL COUNT 0 /CUMM (0.0-0.2); ABSOLUTE EOSINOPHIL COUNT 0 /CUMM (0.0-0.7); ABSOLUTE GRANULOCYTE CT 5.5 /CUMM (1.4-6.5); ABSOLUTE LYMPH COUNT 1.2 /CUMM (1.2-3.4); ABSOLUTE MONOCYTE COUNT 0.4 /CUMM (0.10-0.60); BASOPHIL % 0.3 % (0.0-2.0); EOSINOPHIL % 0.2 % (0-5); GRANULOCYTE % 76.3 % (42.2-75.2); HEMATOCRIT 39.2 % (42-52); MEAN CORPUSCULAR HGB 30.3 PG (27.0-31.0); MEAN CORPUSCULAR HGB CONC 33.4 G/DL (33.0-37.0); MEAN CORPUSCULAR VOLUME 90.7 FL (80.0-94.0); MEAN PLATELET VOLUME 7.7 FL (7.4-10.4); PLATELET COUNT 242 /CUMM (130-400); RBC DISTRIBUTION WIDTH 13.1 % (11.5-14.5); RED BLOOD CELL CT 4.32 /CUMM (4.70-6.10); WHITE BLOOD CELL COUNT 7.2 /CUMM (4.8-10.8)
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
--- NOTE | 2017-06-01 08:47 | ED PSY CRISIS COLLATERAL NOTE ---
Collateral Note Collateral Note Family/Inform/El Contacts: Crisis spoke with the office of Dr. Michelle Carrion [phone]. Pt missed his last appointment on 05/17/17. The last attended appointment was on 05/10/17. Pt is supposed to be seen every [address] Carrion. [place] father passing away which is why he the marketing secretary believes he may be confused about how often he sees Dr. Carrion. Shred with marketing secretary that pt expressed SI with vague plan to steal a friend's gun to shoot himself. Office would like a call back as to where the patient is admitted.
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
[2017-06-02 15:55] VITALS: BP 116/61
[2017-06-02] MEDS ORDERED: KLONOPIN2 M1 PO (17:04)
[2017-06-02 19:59] VITALS: BP 115/59
[2017-06-03 08:56] VITALS: BP 114/63
[2017-06-03 11:51] VITALS: BP 107/64
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
--- NOTE | 2017-06-03 15:06 | CP SOUTH PROGRESS NOTE PSYCH ---
Psych (Inpt) Progress Note Progress Note Include the following elements, when applicable: Involvement in the active treatment of the patient with behavioral observations of the patient and the patient's response to the treatment. Review of the ongoing treatment process in the context of the treatment plan. Indication of how multi-disciplinary staff members are carrying out the treatment plan. Plans for future interventions and recommendations for revision of the treatment plan. Liaison with other physicians/providers. Progress Note: Chart reviewed. Progress discussed with nursing staff. Interviewed patient this morning. Patient reports "feeling ok". "Some off and on suicidal thoughts". Mood improving. "Off and on voices". Denies med SEs. Vitals and labs reviewed. Findings are: vitals wnl. No new labs. Mental status exam: marginally groomed CM, some pmotor slowing, speech quiet, monotonous, mood "getting better", affect blunted, non-labile. TP impoverished. TC with passive SI, no plan or intent. Denies HI. +AH, non-command. Cognition grossly intact. I/J limited. Assessment and plan: Slowly improving. Continue current management as per primary team. Consider addition of neuroleptic standing if AH doesn't improve.
[2017-06-03 16:12] VITALS: BP 99/53
[2017-06-03 20:05] VITALS: BP 122/79
[2017-06-04 07:42] VITALS: BP 102/53
--- NOTE | 2017-06-04 11:04 | CP SOUTH PROGRESS NOTE PSYCH ---
Psych (Inpt) Progress Note Progress Note Include the following elements, when applicable: Involvement in the active treatment of the patient with behavioral observations of the patient and the patient's response to the treatment. Review of the ongoing treatment process in the context of the treatment plan. Indication of how multi-disciplinary staff members are carrying out the treatment plan. Plans for future interventions and recommendations for revision of the treatment plan. Liaison with other physicians/providers. Progress Note: Chart reviewed. Progress discussed with nursing staff. Interviewed patient this morning. Again feels "ok, emre depressed". PAssive SI without plan or intent. "Sometimes I hear my dad's voice." Denies HI. Reports back pain, asks for increased dose of motrin and flexeril. Vitals and labs reviewed. Findings are: vitals wnl. No new labs. Mental status exam: poorly groomed CM, some pmotor slowing, speech quiet, monotonous, mood "emre depressed", affect blunted, non-labile. TP impoverished. TC with passive SI, no plan or intent. Denies HI. +AH, non-command. Cognition grossly intact. I/J limited. Assessment and plan: Slowly improving. Pain focused today. Increase motrin dose, add low dose flexeril to stop tomorrow. Psychoed provided regarding pain meds. Continue current management as per primary team.
[2017-06-04 12:10] VITALS: BP 108/59
[2017-06-04 16:30] VITALS: BP 123/59
[2017-06-04 19:52] VITALS: BP 100/62
[2017-06-05 07:45] VITALS: BP 124/71
--- NOTE | 2017-06-05 08:47 | CP SOUTH PROGRESS NOTE PSYCH ---
Psych (Inpt) Progress Note Progress Note Laboratory Tests 06/05 Toxicology Valproic Acid (50 - 120 ug/mL) 57.0 Vital Signs Date Time Temp Pulse B/P O2 FiO2 06/05 0745 98.9 74 124/71 06/04 195 97.6 69 100/62 06/04 1635 98.2 06/04 1630 67 123/59 Mental status exam: The patient showed marginal grooming. He reported that he was resting because of back pain, he had some Flexeril over the weekend with good results and asked for it to be renewed He showed some psychomotor slowing, His speech was quiet, monotonous, he described his mood as "down". The patient' s affect was constricted, non-labile. He denied thoughts of suicide and denied thoughts of violence or homicide He denied hallucinations today, but he reported auditory hallucinations to Dr. Whalen over the weekend alleging that he sometimes hears his father's voice. Assessment and plan: Slowly improving. Pain focused today. Increase motrin dose, add low dose flexeril to stop tomorrow. Treatment plan update: Continue current management as per primary team. Plan renew Flexeril as needed for back pain Continue current management as per primary team.
[2017-06-05 12:02] VITALS: BP 111/60
[2017-06-05 15:35] VITALS: BP 103/69
--- NOTE | 2017-06-05 16:55 | SOCIAL WORKER PROG NOTE PSYCH ---
Social Work Progress Note Progress Note This loan underwriter met with patient. He stated that he came to the hospital due to increased anxiety related to "family problems. I have alot of stuff going on." Patient reported SI with a plan to shoot himself. Patient stated that he does not own a gun, but knows someone who does. Patient stated that he feels safe on this unit and would inform staff if feeling unsafe. Patient denied being in any current treatment. He stated that he has not been taking medication and has found medication to be effective in the past for AH, anxiety and depression. Patient reported ongoing/current AH of his father's voice, however, he is unable to understand what the voice is saying. He denied HI/VH; he denied current SA. Patient stated that he has been sober for 2 years and that his drug of choice was cocaine. Patient stated that he is currently living in a sober house in [place] and plans to return there upon discharge. He was agreeable to IOP at [facility]. Patient stated that he would consider a family meeting with his mother and would like to speak with her about this tonight before this loan underwriter contacts her.
[2017-06-05 20:04] VITALS: BP 123/70
[2017-06-06 07:43] VITALS: BP 112/69
--- NOTE | 2017-06-06 08:30 | CP SOUTH PROGRESS NOTE PSYCH ---
Psych (Inpt) Progress Note Progress Note The treatment team discussed the patient's progress, treatment plan, and aftercare plans in the morning reports. The treatment team included nursing staff, social work staff, group and milieu therapy staff, and psychiatrist. Valproic Acid on 06/05/2017: 57.0 (RR 50 - 120 ug/mL) Vital Signs Date Time Temp Pulse B/P FiO2 06/06 0743 98.0 74 112/69 Mental status exam: The patient still very much focused on medications. He got irritated when the idea of reducing the Klonopin was brought up. He did consent to me contacting his outside prescriber Dr. Michelle Carrion MD in [place] He showed some psychomotor slowing. His speech was monotonous, he described his mood as "down". The patient's affect was constricted, non-labile. He denied thoughts of suicide and denied thoughts of violence or homicide. He denied hallucinations today, There were no delusions during the interview and he was coherent/there was no thought disorder during the interview Assessment and plan: An 46-year-old white male who was admitted to the inpatient psychiatric unit at [facility] on 06/02/2017 and seems to be focused on medications he is on methadone maintenance and reportedly had been on Klonopin a total of 4 mg for the past 3 years or so at least Treatment Plan Update: Continue methadone 100 mg daily Reduce Klonopin to half a milligram in the morning and 2 mg at bedtime Continue Flexeril as needed for back pain Treatment plan update: Continue current management as per primary team. Plan renew Flexeril as needed for back pain
[2017-06-06 12:06] VITALS: BP 97/52
--- NOTE | 2017-06-06 13:34 | SOCIAL WORKER PROG NOTE PSYCH ---
Social Work Progress Note Progress Note HEATHER DE LA ROSA [id number] 1970 HEATHER DE LA ROSA [id number] Pended Authorization # Client Authorization # Type of Request [id number] CONCURRENT Date of Admission/ Start of Services Requested From Submission Date 06/02/2017 06/06/2017 06/06/2017
[2017-06-06 15:57] VITALS: BP 106/58
--- NOTE | 2017-06-06 18:05 | SOCIAL WORKER PROG NOTE PSYCH ---
Social Work Progress Note Progress Note This rfp writer met with patient. He presented as agitated and stated that he was upset that Dr. León requested to speak with his psychiatrist, Dr. Turner. Patient explained that he felt that there was no need for them to speak. He reported feeling ongoing SI and AH. He states that he hears a voice, but cannot understand what is being said. Patient stated that he would like to return to the sober house upon discharge and would like to contact his brother who has agreed to pay for the sober house. Patient was offered to call during this meeting, however, stated that he would be unable to reach him at this time. He requested to call tomorrow.
[2017-06-06 20:12] VITALS: BP 109/57
[2017-06-07 07:40] VITALS: BP 132/72
[2017-06-07 12:17] VITALS: BP 105/65
--- NOTE | 2017-06-07 14:17 | CP SOUTH PROGRESS NOTE PSYCH ---
Psych (Inpt) Progress Note Progress Note The treatment team discussed the patient's progress, treatment plan, and aftercare plans in the morning reports. The treatment team included: RN, social work staff, group and milieu therapy staff, and psychiatrist. Mental status exam: The patient seems calmer today and was more alert and oriented. He was not as focused on medications today. He reported that he figured out a plan for aftercare with the help of his brother last night. He reported that he is interested in leaving the hospital tomorrow with a plan to follow up with [facility] for his methadone and with [facility] any [place]. He reported that he is no longer interested in continuing with his previous prescriber of Klonopin, Dr. Michelle Carrion MD in [place] He reported that his mood is "good" and denied feeling hopeless, denied wishing , and denied thinking of suicide. He showed brighter affect He denied thoughts of violence or homicide. He denied hallucinations today, There were no delusions during the interview and he was coherent/there was no thought disorder during the interview Assessment: A 46-year-old single White male who was admitted to the inpatient psychiatric unit at [facility] on 06/02/2017 soon after his discharge from [facility]. The patient seems to have shown moderate improvement since at his admission to the inpatient unit and reported that with the help of his brother he came up with an aftercare plan last night. He reported that he feels ready for discharge tomorrow with the plan to continue with the [facility] as well as [facility] in [place] Treatment Plan Update: Continue methadone 100 mg daily Continue Klonopin 0.5 mg in the morning and 2 mg at bedtime Continue Flexeril as needed for back pain
[2017-06-07 16:07] VITALS: BP 117/69
--- NOTE | 2017-06-07 17:16 | SOCIAL WORKER PROG NOTE PSYCH ---
Social Work Progress Note Progress Note This financial underwriter met with patient. He denied SI/HI/AH/VH and stated that he is ready to discharge tomorrow. He reported feeling anxiety; he denied SI/HI/AH/VH. Patient stated that he has been in contact with his brother who will assist him in living arrangements. Patient was vague about his housing plans and stated that he eventually plans to return to the sober house. Patient refused to allow this financial underwriter or other staff to contact his brother or other family member(s) or the sober house. Patient initially stated that he would like to go to [facility] for outpatient treatment and [facility] for Methadone treatment. LOGAN's were signed for both. This financial underwriter spoke with Jose Ballard at [facility] ([phone]) who inquired about the patient "splitting" treatment and reason for not keeping all treatment at [facility]. This financial underwriter discussed the matter with the patient, who ultimately decided that he would prefer to go to [facility] for all treatment. This financial underwriter spoke with Julianna at the [facility]. She stated that the patient could present to their [facility] at [address] [place] [address] between 5am and 3pm Monday through Monday for Methadone treatment. Since patient has been seen within the last 30 days he could go straight to the [facility]. Patient may also speak with a clinician about starting IOP. Julianna also stated that the patient may use the psychiatric walk in hours on Mondays and Tuesdays at 7:30am for medicaiton management. Patient was agreeable to this plan.
[2017-06-07 20:00] VITALS: BP 114/59
[2017-06-08] MEDS ORDERED: REMERON15 M2 PO (07:46)
[2017-06-08] MEDS ORDERED: TRAZODONE HCL100 M1 PO (07:46)
[2017-06-08] MEDS ORDERED: KLONOPIN0.5 M1 PO (07:46)
[2017-06-08] MEDS ORDERED: TENORMIN50 M1 PO (07:46)
[2017-06-08] MEDS ORDERED: DIVALPROEX SOD500 M2 PO (07:46)
[2017-06-08 07:50] VITALS: BP 134/59
[2017-06-08 08:02] VITALS: BP 134/59
[2017-06-08] MEDS ORDERED: KLONOPIN1 M1 PO (08:42)
--- NOTE | 2017-06-08 08:45 | Patient Discharge Instructions ---
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 * To Request a copy of your medical records, please contact the Medical Records Department at [phone]. * To request results of studies pending at the time of discharge, please call [phone]. * Continue your Medications until directed to stop by your Healthcare provider. General Medication Information Please continue to take your new medications and your continued home medications , unless otherwise indicated on your discharge medication list, or unless directed by your MD or WINE MANAGER to stop them. Special Instructions Diet Regular Activity Normal - Tobacco Use Treatment Offered Post DC Medications Offered: Refused Tob Medication Tx Post DC Tobacco Treatment Plan: Refused Tobacco Tx Pgm - EtOH/Drug Use D/O Treatment Offered Post DC Medications Offered: Script Given-See Med List Post DC EtOH/SubAbuse TX Plan: Other SubAbuse/Dual Pgm Metabolic Screening ([X]) Not Applicable, patient not on a neuroleptic. Advance Directives Does the Patient have Medical Advance Directives No/Refused further info Does Pt have Psychiatric Advance Directives? No/Refused further info Does Patient have a Designated Surrogate Decision Maker: No Information About Psychiatric Advance Directives Provided? Refused Discharge Plan Post Hospital Treatment Plan: APT IOP
--- NOTE | 2017-06-08 08:49 | CP SOUTH PROGRESS NOTE PSYCH ---
Psych (Inpt) Progress Note Progress Note The treatment team discussed the patient's progress, treatment plan, and aftercare plans in the morning reports. The treatment team included: RN, THERMAL CUTTING MACHINE OPERATOR, group and milieu therapy staff, and psychiatrist. Vital Signs Date Time Temp Pulse B/P B/P O2 FiO2 06/08 0802 93 134/59 06/08 0750 98.6 93 134/59 06/07 2000 97.7 75 114/59 06/07 1607 74 117/69 Mental status exam: The patient was clean shaven and seemed in good spirits. He reported that he is ready for discharge and looking forward to it. He reported that he is slightly anxious about it and requested dose of Klonopin before he leaves. He is not interested in SSRIs for the management of his alleged anxiety disorder. He was alert and oriented. He reported that his mood is "good" and denied feeling hopeless, denied wishing , and denied thinking of suicide. He showed brighter affect. He denied thoughts of violence or homicide. He denied hallucinations and did not seem to be responding to internal stimuli. There were no delusions during the interview and he was coherent/there was no thought disorder during the interview Assessment: A 46-year-old single White male who was admitted to the inpatient psychiatric unit at [facility] on 06/02/2017 soon after his discharge from [facility]. he was reporting thoughts of suicide The patient seems to have shown moderate improvement since at his admission to the inpatient unit. He reported that he feels ready for discharge with Plan to continue with the [facility] Treatment Plan Update: Discharge home with plan to do IOP at [facility] in [place] Treatment Plan Update: Continue methadone 100 mg daily Continue Klonopin 0.5 mg in the morning and 2 mg at bedtime Continue Flexeril as needed for back pain
--- NOTE | 2017-06-08 10:11 | DISCHARGE SUMMARY REPORT-PSYCH ---
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 Consultations: The patient had a history and physical examination while he was on the inpatient psychiatric unit. 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 Allergies: Coded Allergies: carbamazepine (From TEGRETOL) (Intermediate, HIVES 01/12/16) phenytoin (Intermediate, HIVES 01/12/16) sertraline (SUICIDAL THOUGHTS 01/12/16) Hospital Course/TX Response: 06/02/2017: Initial assessment and plan: Schizoaffective disorder by history Benzodiazepine use disorder Cocaine use disorder Traumatic brain injury Treatment Plan: Inpatient psychiatric care with safety checks every 15 minutes continue same medications 06/03/2017:Assessment and plan: Slowly improving. Continue current management as per primary team. Consider addition of neuroleptic standing if AH doesn't improve. 06/04/2017:Pain focused today. Increase motrin dose, add low dose flexeril to stop tomorrow. Psychoed provided regarding pain meds. Continue current management as per primary team. 06/05/2017:Continue current management as per primary team. Plan renew Flexeril as needed for back pain 06/06/2017:Continue methadone 100 mg daily Reduce Klonopin to half a milligram in the morning and 2 mg at bedtime Continue Flexeril as needed for back pain 06/07/2017:Treatment Plan Update: Continue methadone 100 mg daily Continue Klonopin 0.5 mg in the morning and 2 mg at bedtime Continue Flexeril as needed for back pain 06/08/2017: Mental status exam: The patient was clean shaven and seemed in good spirits. He reported that he is ready for discharge and looking forward to it. He reported that he is slightly anxious about it and requested dose of Klonopin before he leaves. He is not interested in SSRIs for the management of his alleged anxiety disorder. He was alert and oriented. He reported that his mood is "good" and denied feeling hopeless, denied wishing , and denied thinking of suicide. He showed brighter affect. He denied thoughts of violence or homicide. He denied hallucinations and did not seem to be responding to internal stimuli. There were no delusions during the interview and he was coherent/there was no thought disorder during the interview Assessment: A 46-year-old single White male who was admitted to the inpatient psychiatric unit at [facility] on 06/02/2017 soon after his discharge from [facility]. he was reporting thoughts of suicide The patient seems to have shown moderate improvement since at his admission to the inpatient unit. He reported that he feels ready for discharge with Plan to continue with the [facility] Treatment Plan Update: Discharge home with plan to do IOP at [facility] Discharge HBIPS - Tobacco Use Treatment Offered Post DC Medications Offered: Refused Tob Medication Tx Post DC Tobacco Treatment Plan: Refused Tobacco Tx Pgm - EtOH/Drug Use D/O Treatment Offered Post DC Medications Offered: Script Given-See Med List Post DC EtOH/SubAbuse TX Plan: Other SubAbuse/Dual Pgm Metabolic Screening - Screen if on a Neuroleptic Medication - Metabolic screening should include: - Blood Pressure, BMI, Glucose or Hgb A1c, & a - Lipid profile from within the past 365 days. Metabolic Screening ([X]) Not Applicable, patient not on a neuroleptic. Discharge Instructions General Discharge Information Multiple Neuroleptics: ([X]) Not Applicable Discharge Diet Regular Discharge Activity Normal DC Disposition: Home/self Referrals Ordered Referrals Provider Referral 06/09/17 For Groups: [[facility]] [address] [phone] Methadone treatment: Monday-Monday, 5am-3pm Patient will present to the [facility] on 06/09/17 between 5am and 3pm Patient will speak with a clinician about engaging in IOP Provider Referral 05/22/17 For Groups: [[facility]] [address], [place] [phone] Medication management is offered on a walk-in basis on Mondays and Tuesdays at 7:30am. Patient will utilize the walk in hours on 06/12/17. Provider Referral 06/14/17 For Providers: [[facility]] For Groups: [[facility]] Post Discharge [facility] [address] [phone] Group meets every other Monday at 4pm Next Group: 06/14/17, at 4pm Prescriptions Stop taking the following medications: Atenolol (Atenolol) 50 MG TABLET ORAL DAILY Pantoprazole Sodium (Pantoprazole Sodium) 40 MG TABLET. ORAL DAILY Qty = 30 Trazodone HCl (Trazodone HCl) 150 MG TABLET ORAL Every night Qty = 30 Nicotine (Nicotine Patch) 14 MG/24 HOUR PATCH.TD24 On the skin DAILY @8 AM Qty = 14 Divalproex Sodium (Divalproex Sodium) 500 MG TABLET. ORAL SEE INSTRUCTIONS Qty = 42 Mirtazapine (Remeron) 15 MG TABLET ORAL 1999 Qty = 42 Clonazepam (Klonopin) 2 MG TABLET ORAL TWICE DAILY Continue taking these medications: Methadone Hydrochloride (Methadone HCl) 10 MG TABLET 100 Milligram ORAL DAILY Comments: Last Taken:06/08/17 Time:0600 Multivitamin (Multi-Day Vitamins) 1 EACH TABLET 1 Tablet ORAL DAILY Comments: Last Taken:10/18/16 Time:0800 Aspirin (Ecotrin*) 81 MG TABLET. 1 Tablet ORAL DAILY Comments: Last Taken:06/08/17 Time:0800 Docusate Sodium (Docusate Sodium) 100 MG CAPSULE 100 Milligram ORAL THREE TIMES DAILY Qty = 42 Comments: Last Taken:06/08/17 Time:0800 Start taking the following new medications: Atenolol (Tenormin) 50 MG TABLET 50 Milligram ORAL DAILY Qty = 15 No Refills Comments: Last Taken:06/08/17 Time:0800 Clonazepam (Klonopin) 0.5 MG TABLET 0.5 Milligram ORAL DAILY @8 AM Qty = 15 No Refills Comments: Last Taken:06/08/17 Time:0800 Divalproex Sodium (Divalproex Sodium) 500 MG TABLET. 500 Milligram ORAL TWICE DAILY Qty = 30 No Refills Comments: Last Taken:06/08/17 Time:0800 Mirtazapine (Remeron) 15 MG TABLET 15 Milligram ORAL 2000 Qty = 15 No Refills Comments: Last Taken:06/07/17 Time:8PM Trazodone HCl (Trazodone HCl) 100 MG TABLET 100 Milligram ORAL Every night Qty = 15 No Refills Comments: Last Taken:06/07/17 Time:8PM Clonazepam (Klonopin) 1 MG TABLET 2 Milligram ORAL 1999 Qty = 1 No Refills Comments: Last Taken:06/07/17 Time:8PM Studies Pending at Discharge None Copies To: ANGELIQUE Langford
--- NOTE | 2017-06-08 12:07 | SOCIAL WORKER PROG NOTE PSYCH ---
Social Work Progress Note Progress Note This brief writer met with patient. Patient discussed being excited about discharging today and plans to meet a friend for nai this afternoon. He refused to sign an LOGAN for Dr. Bueno stating that he does not plan on returning to Dr. Bueno for medication management. He stated that he will utilize [facility] for all of his mental health/substance abuse treatment services (IOP, Methadone, medication management). Patient stated that he will go to the [facility] tomorrow for Methadone treatment and engage in IOP. He stated that he will utilize walk in hours on 06/12/17 for medication management. Patient denied SI/ plans/means/intent. He denied HI/AH/VH. He identified a safety plan to "go back to the hospital." He was also willing to accept crisis numbers and warm lines upon discharge. He stated that he will also follow up with his brother regarding housing and maintained that he did not want this brief writer to contact his brother. Patient stated that he did not need any additional referrals or appointments to be made. Faxed Referral(s) Referred To: [facility] Transition of Care Documents sent: Health Summary Faxed to: [facility] Fax #: [phone] Faxed by: Juliana Reed LCSW Date faxed: 06/08/17 Time Faxed: [phone]
== END 2017-06-08 10:36 | DRG 750 ==
LOC: ERH 20:27 → CP SOUTH 06-02 10:19 → ERHI 06-02 10:19 → ENTRNSPT 06-02 11:53 → EDTRNSPTSTS 06-02 12:29 → EDTRNSPT 06-02 12:29 → CP SOUTH 06-02 12:35 → CMPTRNSPT 06-02 12:37 → ENRESERV 06-02 23:59 → CP SOUTH 06-05 10:08
PROVIDERS: Emergency Medicine
DX: F25.9 Schizoaffective disorder, unspecified (principal); F14.90 Cocaine use, unspecified, uncomplicated; F13.90 Sedative, hypnotic, or anxiolytic use, unspecified, uncomplicated
CPT/HCPCS: 36415; 80307; 93005; 93010; G0463; G0480; J3490; Q2036

== ENCOUNTER 2017-08-18 17:09 | Inpatient (IN) | payer OTHER ==
[~2017-08-18] VITALS: Ht 180.3 cm; Wt 109.8 kg
[~2017-08-18 17:09] MED LIST changes: +KLONOPIN0.5 M1 PO; -MULTI-DAY VITA1 EACH PO; +MULTI-VITAMIN1 EACH PO; +TENORMIN50 M1 PO
[2017-08-18 17:59] LABS: ABSOLUTE BASOPHIL COUNT 0 /CUMM (0.0-0.2); ABSOLUTE EOSINOPHIL COUNT 0 /CUMM (0.0-0.7); ABSOLUTE LYMPH COUNT 1.1 /CUMM (1.2-3.4); ABSOLUTE MONOCYTE COUNT 0.4 /CUMM (0.10-0.60); BASOPHIL % 0.2 % (0.0-2.0); EOSINOPHIL % 0.1 % (0-5); GRANULOCYTE % 76.2 % (42.2-75.2); HEMATOCRIT 43.3 % (42-52); MEAN CORPUSCULAR HGB 29.7 PG (27.0-31.0); MEAN CORPUSCULAR HGB CONC 33.3 G/DL (33.0-37.0); MEAN PLATELET VOLUME 8.2 FL (7.4-10.4); PLATELET COUNT 246 /CUMM (130-400); RBC DISTRIBUTION WIDTH 12.5 % (11.5-14.5); RED BLOOD CELL CT 4.86 /CUMM (4.70-6.10); WHITE BLOOD CELL COUNT 6.6 /CUMM (4.8-10.8)
[2017-08-18] MEDS ORDERED: METOPROLOL TART25 M1 PO (18:08)
[2017-08-18] MEDS ORDERED: IBUPROFEN600 M1 PO (18:08)
[2017-08-18] MEDS ORDERED: GABAPENTIN300 M2 PO (18:09)
[2017-08-18] MEDS ORDERED: CLONIDINE HCL0.1 MG PO (18:09)
[2017-08-18] MEDS ORDERED: AMLODIPINE BESYL5 M1 PO (18:09)
[2017-08-18] MEDS ORDERED: POLYETHYLENE GL17 GM PO (18:10)
[2017-08-18] MEDS ORDERED: CYCLOBENZAPRINE10 M1 PO (18:10)
[2017-08-18] MEDS ORDERED: PANTOPRAZOLE SO40 M1 PO (18:10)
[2017-08-18] MEDS ORDERED: CLONAZEPAM2 M2 PO (18:11)
[2017-08-18] MEDS ORDERED: OLANZAPINE15 M1 PO (18:12)
--- NOTE | 2017-08-18 19:41 | ED GENERAL ADULT ---
See Addendum History of Present Illness General Chief Complaint: Psychiatric Related Complaint Stated Complaint: PT IS HAVING THOUGTH OF HURTING HIMSELF Source: patient Exam Limitations: no limitations Vital Signs & Intake/Output Vital Signs & Intake/Output Vital Signs Date Time Temp Pulse Resp B/P B/P Pulse O2 O2 Flow FiO2 Mean Ox Delivery Rate 08/20 2329 86 18 /08 2213 46 18 106/48 96 Room Air /08 1815 97.8 53 16 93/58 97 Room Air 07/08 1407 97.5 46 18 95/50 98 Room Air Room Air 07/08 1042 98.1 57 17 93/57 97 Room Air Room Air 07/08 1012 98.0 64 18 128/67 07/08 1011 98.0 64 18 128/67 97 Room Air 07/08 0838 97.9 62 18 124/70 07/08 0836 97.9 62 18 124/70 96 Room Air 07/08 0700 98.2 64 17 116/58 07/08 0623 98.2 64 17 116/58 95 Room Air 07/08 0133 97.9 52 19 122/60 96 Room Air Allergies Coded Allergies: carbamazepine (From TEGRETOL) (Intermediate, HIVES 01/12/16) phenytoin (Intermediate, HIVES 01/12/16) sertraline (SUICIDAL THOUGHTS 01/12/16) Triage Note: 46 YO MALE TO TRIAGE FOR DEPRESSION AND "CRAZY THROUGHTS" STATES HE HAS ALOT OF LIFE STRESSORS AT THIS TIME. STATES +SI, "I HAVE A FRIEND THAT HAS A GUN SHED". DENIES ALCOHOL/DRUG USE. Triage Nurses Notes Reviewed? yes Onset: Gradual Duration: week(s): Timing: constant HPI: 46-year-old male with a history of seizures, hypertension, hepatitis C, anxiety, depression, schizoaffective disorder, and substance abuse presenting with suicidal ideation. Patient states that he has been under a lot of stress lately , but unable to elaborate on his specific life stressors. States that his friend owns a gun shed, and has thought about shooting himself with one of his friend's guns. Denies HI. Denies any recent EtOH or drug use. Denies pain or trauma. (Nataly ORELLANA,Carli) Reconcile Medications Amlodipine Besylate 5 MG TABLET 1 TAB PO DAILY BP (Reported) Aspirin (Ecotrin*) 81 MG TABLET.DR 1 TAB PO DAILY HEART/BLOOD (Reported) Atenolol (Tenormin) 50 MG TABLET 50 MG PO DAILY blood pressure Clonazepam 2 MG TABLET 1 TAB PO BID ANXIETY (Reported) Clonidine HCl 0.1 MG TABLET 1 TAB PO DAILY BP (Reported) Cyclobenzaprine HCl 10 MG TABLET 1 TAB PO BID MUSCLE SPASMS (Reported) Divalproex Sodium 500 MG TABLET.DR 500 MG PO BID mood stabilizer Docusate Sodium 100 MG CAPSULE 100 MG PO TID CONSTIPATION Gabapentin 300 MG CAPSULE 1 CAP PO BID NERVE PAIN (Reported) Ibuprofen 600 MG TABLET 1 TAB PO TID PAIN/INFLAMMATION (Reported) with food Methadone Hydrochloride (Methadone HCl) 10 MG TABLET 100 MG PO DAILY OPIATE SUBSTITUTE (Reported) Metoprolol Tartrate 25 MG TABLET 1 TAB PO DAILY BP (Reported) Mirtazapine (Remeron) 15 MG TABLET 15 MG PO 2000 depression Multivitamin (Multi-Vitamin Daily) 1 EACH TABLET 1 TAB PO DAILY SUPPLEMENT ( Reported) Pantoprazole Sodium 40 MG TABLET.DR 1 TAB PO DAILY GI (Reported) Polyethylene Glycol 3350 17 GRAM POWD.PACK 1 PAC PO DAILY GI (Reported) Trazodone HCl 100 MG TABLET 100 MG PO QPM insomnia (Rebeca HOSKINS,Ruddy Kelley) Past History Travel History Traveled to [place] past 21 day No Medical History Any Pertinent Medical History? 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 No (Carli Guerrero) Review of Systems Review of Systems Constitutional: Reports: no symptoms. EENTM: Reports: no symptoms. Respiratory: Reports: no symptoms. Cardiovascular: Reports: no symptoms. GI: Reports: no symptoms. Genitourinary: Reports: no symptoms. Musculoskeletal: Reports: no symptoms. Skin: Reports: no symptoms. Neurological/Psychological: Reports: see HPI. Hematologic/Endocrine: Reports: no symptoms. Immunologic/Allergic: Reports: no symptoms. All Other Systems: Reviewed and Negative (Carli Guerrero) Physical Exam Physical Exam General Appearance: well developed/nourished, no apparent distress, alert, awake , comfortable Head: atraumatic, normal appearance Eyes: Bilateral: normal appearance. Neck: normal inspection Respiratory: normal breath sounds, lungs clear Cardiovascular: regular rate/rhythm Gastrointestinal: soft, non-tender Back: normal inspection Extremities: normal inspection Neurologic/Psych: awake, alert, oriented x 3, normal gait Skin: intact, normal color, warm/dry Core Measures ACS in differential dx? No CVA/TIA Diagnosis: No Sepsis Present: No Sepsis Focused Exam Completed? No (Carli Guerrero) Progress Differential Diagnoses I considered the following diagnoses in my evaluation of the patient: [ Depression versus SI versus psychosis versus intoxication, low concern for trauma] Plan of Care: Orders Procedure Date/time Status Continuous Observation Monitor 08/20 1900 Active Continuous Observation Monitor 08/20 1500 Active Continuous Observation Monitor 08/20 1100 Active Continuous Observation Monitor 08/20 0700 Active Current Medications Sig/Greg Start time Last Medication Dose Stop Time Status Admin Methadone HCl 100 MG DAILY 08/19 09 UNVr 08/20 (Dolophine) 0823 Clonazepam 2 MG BID PRN 08/19 0830 AC 08/20 (Klonopin 1MG Tab) 08/26 0829 2041 Amlodipine Besylate 5 MG DAILY 08/18 2099 UNVr 08/20 (Norvasc) 0823 Aspirin 325 MG DAILY 08/18 2099 UNVr 08/20 (Aspirin) 0823 Atenolol 50 MG DAILY 08/18 2099 UNVr 08/20 (Tenormin) 0823 Clonidine 0.1 MG DAILY 08/18 2099 UNVr 08/20 (Catapres) 08 Divalproex Sodium 500 MG BID 08/18 2099 UNVr 08/20 (Depakote) 204 Gabapentin 300 MG BID 08/18 2099 UNV 08/20 (Neurontin) 204 Mirtazapine 15 MG AT BEDTIME 08/18 2099 UNVr 08/20 (Remeron) 204 Olanzapine 15 MG QPM 08/18 2099 UNVr 08/20 (Zyprexa) 2040 Trazodone HCl 100 MG QPM 08/18 2100 UNVr 08/20 (Desyrel) 2040 Metoprolol Tartrate 25 MG DAILY 08/18 2053 UNVr 08/20 (Lopressor) 08 Urine positive for methadone, benzos, and cocaine. Labs otherwise unremarkable. Patient signed out to Dr. Jose with crisis evaluation pending. truck body builder confirmed the patient's methadone dose, and I have placed orders for his methadone along with all of his other home medications. Initial ED EKG: none (Carli Guerrero) Hand-Off Endorsed To: David Tomas MD Endorsed Time: 1900 Pending: other (bed search) (Jovany Cordon MD) Hand-Off Endorsed To: Jovany Cordon MD Endorsed Time: 07 Pending: other (David Tomas MD) Departure Departure Disposition: STILL A PATIENT Condition: Stable Clinical Impression Primary Impression: Suicidal ideation Referrals: Julian Mcmahan MD (PCP/Family) Departure Forms: Customer Survey General Discharge Information (Carli Guerrero) Departure Comments pt to be signed out to dr. cordon, 08/19/17, 7am. PA/BONDING MACHINE TENDER Co-Sign Statement Statement: ED Attending supervision documentation- [] I saw and evaluated the patient. I have also reviewed all the pertinent lab results and diagnostic results. I agree with the findings and the plan of care as documented in the PA's/BONDING MACHINE TENDER's documentation. [x] I have reviewed the ED Record and agree with the PA's/BONDING MACHINE TENDER's documentation. [] Additions or exceptions (if any) to the PAs/BONDING MACHINE TENDER's note and plan are summarized below: [] (Ruddy Jose MD) Critical Care Note Critical Care Note Critical Care Time: non-applicable (Carli Guerrero) [x] I have reviewed the ED Record and agree with the PA's/BONDING MACHINE TENDER's documentation. [] Additions or exceptions (if any) to the PAs/BONDING MACHINE TENDER's note and plan are summarized below: [] (Ruddy Jose MD) Critical Care Note Critical Care Note Critical Care Time: non-applicable (Carli Guerrero) PA/BONDING MACHINE TENDER Co-Sign Statement Statement: ED Attending supervision documentation- [] I saw and evaluated the patient. I have also reviewed all the pertinent lab results and diagnostic results. I agree with the findings and the plan of care as documented in the PA's/BONDING MACHINE TENDER's documentation. [x] I have reviewed the ED Record and agree with the PA's/BONDING MACHINE TENDER's documentation. [] Additions or exceptions (if any) to the PAs/BONDING MACHINE TENDER's note and plan are summarized below: [] (Rebeca HOSKINS,Ruddy Kelley) Critical Care Note Critical Care Note Critical Care Time: non-applicable (Carli Guerrero) PA/BONDING MACHINE TENDER Co-Sign Statement Statement: ED Attending supervision documentation- [] I saw and evaluated the patient. I have also reviewed all the pertinent lab results and diagnostic results. I agree with the findings and the plan of care as documented in the PA's/BONDING MACHINE TENDER's documentation. [x] I have reviewed the ED Record and agree with the PA's/BONDING MACHINE TENDER's documentation. [] Additions or exceptions (if any) to the PAs/BONDING MACHINE TENDER's note and plan are summarized below: [] (Ruddy Jose MD) Critical Care Note Critical Care Note Critical Care Time: non-applicable (Carli Guerrero) Critical Care Note Critical Care Note Critical Care Time: non-applicable (Carli Guerrero)
[2017-08-18 21:00] VITALS: BP 142/87
--- NOTE | 2017-08-18 21:11 | ED PSYCH CRISIS CONSULTATION ---
See Addendum Crisis Consult Basic Assessment Date of Consult: 08/18/17 Responsible Person/Accompanied By: self Insurance Authorization: Insurance #1: Insurance name: SAM ZAMARRIPA Phone number: Policy number: [id number] Group number: Authorization number: ED Provider: Patient's ED Provider: Carli Guerrero Primary Care Physician: Patient's PCP: Julian Mcmahan MD PCP's Current Psychiatrist: ANGELIQUE Langford Chief Complaint: Psychiatric Related Complaint Patient's Quote: "I am a mess" Present Illness: The pt is a 46yo single male brought to the ED by a friend for SI. The pt presents alert, oriented, calm but irritable with goal directed speech. The pt is a poor historian requiring multiple clarifying questions throughout this assessment. The pt stated I am a mess and I am overwhelmed with life. The pt stated he is depressed and has increasing SI over the past 10 days. The pt stated he has a plan to steal a gun from his friends locked gun case. The pt believes he would be able to break into the gun case despite it being locked. The pt reports auditory hallucinations stating he last heard voices 2 days ago. The pt reports he is averaging 3 hours of sleep per night. The pt reports poor concentration, denies any problems with appetite. The pt reports he stopped taking his psychiatric medications 10 days ago. The pt reports he was prescribed Divalproex, clonidine, gabentin, remeron, olanzapine and trazadone. The pt stated he continues to take 100mgs of Methadone prescribed by [facility] and last went to [facility] this morning. The pt reports his mother is gravely ill with Leukemia. The pt requested his mother not be called to avoid additional stress on her. The pt stated he has no other supports due to his brother living in [place]. The pt stated he is paying rent to an acquaintance and his income is from a trust fund. The pt is requesting hospitalization. The pt reports past suicide attempts with his most recent attempt in 2013 while in [place]. The pt reports he overdosed on Tylenol and was hospitalized after his stomach was pumped. This greeting card writer spoke with ediphone operator [facility] clinician Ace ([phone]) who verified [facility] prescribes the pt 100mgs Methadone. Ace stated the pt did present to [facility] today and received his Methadone. Ace stated the pt started with [facility] on . Ace stated [facility] does not prescribe any benzodiazepines or Adderall for the pt. The pt denies any alcohol and drug use, his toxicology screen is positive for cocaine, benzodiazepines and methadone. When initially told about his toxicology results the pt stated [facility] prescribes him Adderall and Klonopin. The pt also stated his Adderall falsely tests positive for cocaine. CT BRAKE LINING DRILLER was checked verifying pts last benzodiazepine prescription ran out 6 weeks ago. The pt then stated he forgot to mention he received a benzodiazepine script while at a hospital in [place]. The pt adamantly denies buying benzodiazepines off the street and adamantly denies cocaine use. This information was discussed with the ED provider who placed the pt on a CIWA to monitor for withdrawal. The pt was last evaluated by Crisis at [facility] on 06/01/17. The pt presented with SI and was hospitalized on [facility]. The Crisis eval on 06/01/17 notes the pt has [address] [facility] since 2003. The pt has historical diagnoses of Schizoaffective Disorder, Cocaine Use Disorder, and Opiate Use Disorder. CSSRS completed and placed in the pts chart. Pt's presentation and hx discussed by phone with Dr. León, plan is for hospitalization. Pt stated he is in agreement with this plan. Due to no beds available at [place], a bed search will be conducted. Patient's Address: [address] [place] [address] Other Phone Number: Who Do You Live With? Friend Family/Informants Interviewed: [facility] ediphone operator clinician Allergies - Coded Allergies: carbamazepine (From TEGRETOL) (Intermediate, HIVES 01/12/16) phenytoin (Intermediate, HIVES 01/12/16) sertraline (SUICIDAL THOUGHTS 01/12/16) Current Medications - Scheduled Medications Amlodipine Besylate 5 MG TABLET 1 TAB PO DAILY BP #15 (Reported) Entered as Reported by Marion Aguayo on 08/18/17 1809 Aspirin (Ecotrin*) 81 MG TABLET. 1 TAB PO DAILY HEART/BLOOD (Reported) Entered as Reported by Marion Aguayo on 01/12/16 1631 Atenolol (Tenormin) 50 MG TABLET 50 MG PO DAILY blood pressure #15 TAB Prescribed by Narayan León MD on 06/08/17 Clonazepam 2 MG TABLET 1 TAB PO BID ANXIETY (Reported) Entered as Reported by Marion Aguayo on 08/18/171810 Clonidine HCl 0.1 MG TABLET 1 TAB PO DAILY BP #15 (Reported) Entered as Reported by Marion Aguayo on 08/18/171808 Cyclobenzaprine HCl 10 MG TABLET 1 TAB PO BID MUSCLE SPASMS #30 (Reported) Entered as Reported by Marion Aguayo on 08/18/171809 Divalproex Sodium 500 MG TABLET. 500 MG PO BID mood stabilizer #30 TAB Prescribed by Narayan León MD on 06/08/17 Last Taken: At an unknown date and time Docusate Sodium 100 MG CAPSULE 100 MG PO TID CONSTIPATION #42 CAP Prescribed by Ze Aponte APRN on 03/16/16 Gabapentin 300 MG CAPSULE 1 CAP PO BID NERVE PAIN #45 (Reported) Entered as Reported by Marion Aguayo on 08/18/171808 Ibuprofen 600 MG TABLET 1 TAB PO TID PAIN/INFLAMMATION #90 (Reported) Entered as Reported by Marion Aguayo on 08/18/171807 Methadone Hydrochloride (Methadone HCl) 10 MG TABLET 100 MG PO DAILY OPIATE SUBSTITUTE (Reported) Entered as Reported by Nichelle De La Rosa on 08/08/152041 Metoprolol Tartrate 25 MG TABLET 1 TAB PO DAILY BP #15 (Reported) Entered as Reported by Marion Aguayo on 08/18/171807 Mirtazapine (Remeron) 15 MG TABLET 15 MG PO 2000 depression #15 TAB Prescribed by Narayan León MD on 06/08/17 Multivitamin (Multi-Vitamin Daily) 1 EACH TABLET 1 TAB PO DAILY SUPPLEMENT ( Reported) Entered as Reported by Maya Coleman on 08/08/15 231 Pantoprazole Sodium 40 MG TABLET.DR 1 TAB PO DAILY GI #30 (Reported) Entered as Reported by Marion Aguayo on 08/18/171809 Polyethylene Glycol 3350 17 GRAM POWD.PACK 1 PAC PO DAILY GI #30 (Reported) Entered as Reported by Marion Aguayo on 08/18/171809 Trazodone HCl 100 MG TABLET 100 MG PO QPM insomnia #15 TAB Prescribed by Narayan León MD on 06/08/17 Laboratory Results: Laboratory Tests 08/18/171818: Urine Opiates Screen < 100, Methadone Screen > 735 H, Barbiturate Screen 75, Ur Phencyclidine Scrn 6.90, Amphetamines Screen 126, U Benzodiazepines Scrn > 800 H, Urine Cocaine Screen > 1000 H, Urine Cannabis Screen 15.40, Urine Color YEL, Urine Clarity CLEAR, Urine pH 6.0, Ur Specific Friendship >= 1.030, Urine Protein TRACE H, Urine Ketones TRACE H, Urine Nitrite NEG, Urine Bilirubin NEG, Urine Urobilinogen 1.0, Ur Leukocyte Esterase NEG, Ur Microscopic SEDIMENT EXAMINED, Urine RBC 1-3, Urine Bacteria MOD H, Urine Mucus RARE, Urine Hemoglobin NEG, Urine Glucose NEG 08/18/17 1744: Anion Gap 12, Estimated GFR > 60, BUN/Creatinine Ratio 27.8 H, Glucose 102 H, Calcium 9.6, Total Bilirubin 0.8, AST 61 H, ALT 66, Alkaline Phosphatase 53, Total Protein 8.0, Albumin 4.7, Globulin 3.3, Albumin/Globulin Ratio 1.4, CBC w Diff NO MAN DIFF REQ, RBC 4.86, MCV 89.0, MCH 29.7, MCHC 33.3, RDW 12.5, MPV 8.2 , Gran % 76.2 H, Lymphocytes % 16.8 L, Monocytes % 6.7, Eosinophils % 0.1, Basophils % 0.2, Absolute Granulocytes 5.0, Absolute Lymphocytes 1.1 L, Absolute Monocytes 0.4, Absolute Eosinophils 0, Absolute Basophils 0, Serum Alcohol < 10.0 Past History Past Medical History Neurological: seizure, HEAD INJURY 1995 EENT: NONE Cardiovascular: hypertension Respiratory: NONE Gastrointestinal: GERD Hepatic: hepatitis C Renal: NONE Musculoskeletal: chronic back pain Psychiatric: anxiety, depression, schizo affective disorder, substance abuse Endocrine: NONE Blood Disorders: NONE Cancer(s): NONE MANAGEMENT LEAD/Reproductive: NONE Past Surgical History Surgical History: non-contributory Psychosocial History Strengths/Capabilities: Patient requesting psychiatric admission Physical Limitations (Interventions): None noted Psychiatric Treatment History Psych Treatment Psychiatric Treatment Yes Inpatient Treatment Yes Outpatient Treatment Yes Location of Treatment [place], [place], [place], [facility], numerous other facilities Reason for Treatment depression, SI, substance use, Schizoaffective Dis Dates of Treatment long hx Response to Treatment poor Diagnosis by History: Schizoaffective D/O Cocaine Use D/O Opiate Use D/O - on methadone maint. Substance Use/Abuse History Drug Use/Abuse 1 Substances Used/Abused Yes Substance Used/Abused Prescribed Opiates First Use 24 Last Used pt reports several months ago How much used/taken pt unable to quantify How often in past pt took opiates daily For how long 24 years Route of use ingest Drug Use/Abuse 2 Substances Used/Abused Yes Substance Used/Abused Benzodiazepines First Use pt unsure Last Used pt reports 2-3 days ago How much used/taken pt reports he is unsure of dosage How often daily For how long pt reports a long hx Route of use ingest Drug Use/Abuse 3 Substances Used/Abused Yes Substance Used/Abused Cocaine First Use pt reports he is unsure Last Used pt denies recent use, has positive toxicology screen and past use How much used/taken pt unable to quantify How often pt reports daily in the past For how long pt reports a long hx Route of use snort Substance Abuse Treatment Substance Abuse Treatment Past Substance Abuse TX Yes Inpatient Treatment Yes Outpatient Treatment Yes Location of Treatment [facility] Reason for Treatment cocaine, benzodiazepines, opiates Dates of Treatment long hx Response to Treatment poor Current Mental Status Mental Status Orientation: Person, Place, Situation Affect: Anxious (irritable) Speech: WNL Neuro-vegetative: Concentration Poor, Sleep Disturbance Appearance Appearance- Dress/Hygiene: appropriate Behaviors Thought Process: WNL Thought Content: Auditory Hallucinations Memory: WNL Insight: Poor SI/HI Risk Assessment Past Suicidal Ideation/Attempts Yes Current Suicidal Ideation/Att Yes Past Homicidal Ideation/Att: No Current Homicidal Ideation/Attempts No Degree of Intent: Plan Danger To: Self Gravely Disabled: Inability, Lack of Insight, Poor Impulse Control, Poor Judgment Risk Factors: access to lethal means, chronic/serious med cond., high anxiety/ distress, history of Violence, history of suicide atmpts, SA/MH hospitalized, substance abuse, poor impulse control, lack of outcome concern, male, limited support Lethality Ratin PTSD Checklist PTSD Done? patient declined ED Management Sitter: Yes Restraints: No DSM5/PS Stressors/Medical Prob Diagnosis' (DSM 5, Stressors, Medical): F25.0 Schizoaffective disorder, Bipolar Type F13.20 Sedative, Hypnotic or Anxiolytic Use Disorder, Severe F14.20 Stimulant Use Disorder, Cocaine, Severe Traumatic brain injury Current GAF: 29 Departure Disposition Psych Medical Clearance Date: 08/18/17 Medically Cleared at: 1900 Time Started: 190 Time Ended: 1949 Psychiatrist Consulted: Dr. León Date Disposition Established: 08/18/17 Time Disposition Established: 2119 Plan for Disposition - Modality: Bed Search Rationale for Disposition: Pt is a risk to self and in need of hospitalization. Type of IP Admission: Voluntary Referrals Said Julian HOSKINS (PCP/Family)
[2017-08-18 22:09] VITALS: BP 118/76
[2017-08-19 00:13] VITALS: BP 132/69
[2017-08-19 02:07] VITALS: BP 132/76
[2017-08-19 03:59] VITALS: BP 148/68
[2017-08-19 08:02] VITALS: BP 114/80
[2017-08-19 15:51] VITALS: BP 119/62
--- NOTE | 2017-08-19 19:22 | ED PSYCHIATRIST/APRN CONSULT ---
Psychiatrist/PIERCER ED Consult Assessment and Plan: Brief Psych Consult (Please see the details of Mental Health Consultation per Jimenez STEVEN on 08/18/17 & Sarah Olmedo LCSW, on 08/19/17) Date of consult: 08/19/2017 Reason for Consult: 24 hours in ED, awaiting inpatient bed Present and past Psych and Substance Abuse Histories: as per the Mental Health Consultation per Jimenez STEVEN on 08/18 & Sarah Olmedo LCSW, on 08/19/17) as well as numerous evaluation in the electronic record from CPS/Inpatient psychiatric admissions Mental Status Update: Seemed sedated but concersant. Disinterested in interview. Impaired attention and concentration. Agreeable to going inpatient. Reported increasing depression and thoughts of suicide x 10 days. No hallucinations, no delusions. Coherent (for the most part) Assessment: 46-year-old single white male with extensive substance abuse history. He presents with increasing depression and reported thoughts of suicide x 10 days Recommendations: Pt. seems in need of inpatient psychiatric care Continue current regimen of medications will re-evaluate tomorrow
[2017-08-20 07:00] VITALS: BP 116/58
--- NOTE | 2017-08-20 08:28 | ED PSYCHIATRIST/APRN CONSULT ---
Psychiatrist/HOT METAL CHARGER ED Consult Assessment and Plan: Brief Psychiatic Follow Up Please see the details of Mental Health Consultation per Jimenez Gaytan AERIAL PLANTING AND CULTIVATION MANAGER on 08/18/17 & Sarah Olmedo LCSW, on 08/19/17 as well as my note from yesterday 08/19/2017 Mental Status Update: Seemed sedated and disinterested in interview. Impaired attention and concentration secondary to sedation/medication side effects still endorsing thoughts of suicide x 10 days. No hallucinations, no delusions. Coherent (for the most part) Unreliable historian Assessment: 46-year-old single white male with extensive substance abuse history. He presents with increasing depression and reported thoughts of suicide x 10 days Wants inpatient care, Recommendations: Pt. seems in need of inpatient psychiatric care I recommend changing PRN clonazepam to Clonazepam 1 mg [id number] on a regular shcedule as patient will be gradually taken off in the next few days I recommend increasing Gabapentin to 600 mg Q8hors given with clonopin on regular schedule I recommend reducing Methadone by 5 mg daily as this is what the plan would be on CPS Continue mirtazapine 15 MG AT BEDTIME Continue olanzapine 15 MG QPM Continue trazodone HCl 100 MG QPM PO 0823 Atenolol 50 MG DAILY 08/18 2099 UNVr 08/20 PO 0823 Clonazepam 0 .STK-MED ONE 08/20 828 DC PO Clonazepam 0 .STK-MED ONE 08/19 2122 DC PO Clonazepam 2 MG BID PRN 08/19 0830 AC 08/20 PO 08/26 0829 0834 Clonidine 0 .STK-MED ONE 08/20 756 DC PO Clonidine 0.1 MG ONCE ONE 08/19 2129 DC 08/19 PO 08/19 Clonidine 0 .STK-MED ONE 08/19 2122 DC PO Clonidine 0.1 MG DAILY 08/18 2099 UNVr 08/20 PO 08 Divalproex Sodium 500 MG BID 08/18 2099 UNVr 08/20 PO 0823 Gabapentin 0 .STK-MED ONE 08/20 757 DC PO Gabapentin 0 .STK-MED ONE 08/19 2024 DC PO Gabapentin 300 MG BID 08/18 2099 UNV 08/20 PO 0823 Methadone HCl 0 .STK-MED ONE 08/20 757 DC PO Methadone HCl 100 MG DAILY 08/19 0900 UNVr 08/20 PO 0823 Metoprolol Tartrate 0 .STK-MED ONE 08/20 0757 DC PO Metoprolol Tartrate 25 MG DAILY 08/18 2053 UNVr 08/20 PO 822 Mirtazapine 15 MG AT BEDTIME 08/18 2099 UNVr 08/19 PO 2104 Olanzapine 0 .STK-MED ONE 08/19 2024 DC PO Olanzapine 15 MG QPM 08/18 2099 UNVr PO Trazodone HCl 0 .STK-MED ONE 08/19 2024 DC PO Trazodone HCl 100 MG QPM 08/18 2099 UNVr 08/19 PO 2030 Mental Status Update: Seemed sedated but concersant. Disinterested in interview. Impaired attention and concentration. Agreeable to going inpatient. Reported increasing depression and thoughts of suicide x 10 days. No hallucinations, no delusions. Coherent (for the most part) Assessment: 46-year-old single white male with extensive substance abuse history. He presents with increasing depression and reported thoughts of suicide x 10 days Recommendations: Pt. seems in need of inpatient psychiatric care Continue current regimen of medications will re-evaluate tomorrow
[2017-08-20 08:38] VITALS: BP 124/70
[2017-08-20 10:12] VITALS: BP 128/67
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
[2017-08-21 16:05] VITALS: BP 116/65
[2017-08-21 16:06] VITALS: BP 116/65
[2017-08-21 20:01] VITALS: BP 121/69
[2017-08-21 20:15] VITALS: BP 121/69
[2017-08-22 07:37] VITALS: BP 104/56
[2017-08-22 07:54] VITALS: BP 104/56
[2017-08-22 12:09] VITALS: BP 97/59
[2017-08-22 12:19] VITALS: BP 97/59
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
--- NOTE | 2017-08-22 15:32 | SOCIAL WORKER PROG NOTE PSYCH ---
Social Work Progress Note Progress Note Pt presents as sedated. Slow to engage but reports feeling better on unit and denies SI. Pt reports not yet talking to his mother and stills expects his brother to fly in from [place] and help him with his finances. Discussed plan for aftercare. Pt verbalized importance of engaging with treatment so he can stay on his medications.
[2017-08-22 16:10] VITALS: BP 132/64
[2017-08-22 16:12] VITALS: BP 132/64
--- NOTE | 2017-08-22 16:21 | CPS PROVIDER INIT ASMT PSYCH ---
Psychiatric Admission Commercial Tire Service Technician's Note Reviewed: Yes Patient Seen and Examined: Yes Identifying Information: 46 yo WM with hx Schizoaffective d/o and substance use, including MMP, admitted on 08/21/17 on a voluntary basis, referred by ER. Chief Complaint: Suicidal ideation. Reaction to Hospitalization: "Safe." History of Present Illness Onset of Illness: Told roll on worker he was feeling depressed with increasing SI x 10 days. Circumstances Leading to Admission: Expressed SI. Had plan to steal a gun from friend's locked gun case. Reported AHs. Reported 3 hours sleep/night. Stopped psychiatric medications 10 days prior to presentation. Continued on methadone 100 mg daily through [facility]. Reported mother is gravely ill with leukemia. Problem(s) Justifying Need for Admission: SI. Other HPI: "Got a lot of stuff going on in my life right now." Reports mother is sick with leukemia and mother's has metastatic canceer. Reports he stopped medications a few weeks ago because he wanted to . Denies having used cocaine, attributing +drug screen to Adderall use. Feels he made a mistake taking Adderall. Reports he has been feeling suicidal x 1.5 weeks. Sleep: "sh*t." Appetite: "maintaining." Energy: not very good. Case and treatment plan discussed in team meeting. Staff reports that the patient is denying SI. Nods off. Past Psychiatric History Past Diagnosis(es)- if any: See old records. Schizoaffective d/o. Substance use. Past Precipitating Factors- if any: SI, cocaine use, stress. - Include inpatient and outpatient treatment Treatment History: Not in outpatient tx x 3 weeks. Hx multiple inpatient admits to also to [facility] and [facility]. History of Suicide Attempts or Gestures Reports hx 3 attempts by pill OD. Substance Abuse History: Tobacco: 0.5 ppd. Alcohol: none. MJ: rare. Cocaine: rare. Reports being clean from opiates since the s. On MMP through [facility]. Allergies: Coded Allergies: carbamazepine (From TEGRETOL) (Intermediate, HIVES 01/12/16) phenytoin (Intermediate, HIVES 01/12/16) sertraline (SUICIDAL THOUGHTS 01/12/16) Home Med List: Off medications x 3 weeks except methadone 100 mg daily. - Include any medical condition(s) that may - impact the patient's recovery/remission Past Medical History: Hep C. TBI. 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 Substance Use: Denied. Suicides: Denied. Social History Living Situation: Living with some friends, going between [place] and [place]. Significant Relationships (family/friends): Father at 49 yo from a brain tumor. Has a supportive brother. Education: HS graduate. Vocation/Occupation: Trying to get on disability. Legal: Hx multiple arrests. Has spent 13 years in [facility]dc. Healthly Behaviors Screening Tobacco Screening Tobacco Use from ED Docu: Current Daily Use Daily Tobacco Use Amount/Type: =< 4 Cigarettes daily - If tobacco counseling indicated - the following topics are required. - #1 Recognizing dangerous situations. - #2 Coping Skills. - #3 Basic information about quitting. Status of Tobacco Cessation Counseling: #1, #2 AND #3 Completed Cessation Med Status Nicotine Gum Ordered Alcohol Screening - ETOH screen POS if BAL >=80 or Audit-C>= M4/F3 Audit-C Score from Diag Assess: 0 Blood Alcohol Level: Lab Serum Alcohol < 10.0 MG/DL 08/18/17 0992 Alcohol Use Screening Results: Neg per Audit C &/or BAL - If ETOH counseling indicated - the following topics are required. - #1 Express concern about the patient's - drinking at unhealthy levels, include informing - of national norms for moderate drinking: - men <= 14 drinks/week, max 4 drinks/occasion - women <= 7 drinks/week, max 3 drinks/occasion - #2 Providing feedback, including linking alcohol to - negative physical effects (liver injury, hypertension) - negative emotional effects (relationship problems and - depression) - negative occupational consequences (reduced work - performance) - #3 Advising the patient to abstain from alcohol or - to drink below national norms for moderate drinking - (as listed above). Status of ETOH Use Counseling: N/A B/C NO ETOH Use Metabolic Screening - Screen if on a Neuroleptic Medication - Metabolic screening should include: - Blood Pressure, BMI, Glucose or Hgb A1c, & a - Lipid profile from within the past 365 days. Metabolic Screening () Not Applicable, patient not on a neuroleptic. OR () Patient on a neuroleptic(s) . Enter below results for Hemoglobin A1C, and lipid panel if obtained during the last 365 days. BMI: 33.000 Blood Pressure: 132/64 Laboratory Results From [facility] (If applicable): [x] Lab Cholesterol 128 MG/DL 05/31/172108 Cholesterol/HDL Ratio 3 % 05/31/172108 HDL Cholesterol 45 mg/dL 05/31/172108 Hemoglobin A1c 5.4 % 05/31/172108 LDL Cholesterol, Calc 76 mg/dL 05/31/172108 Triglycerides 36 mg/dL 05/31/172108 Exam and Plan Mental Status Examination Ambulation Status: Gait unremarkable. Appearance: Dressed in t-shirt and shorts, unshaven, in NAD. Attitude towards examiner: Somewhat distant. Annoyed about methadone taper. Psychomotor activity: Somewhat sedated. Behavior: Unremarkable. Quality of speech: Normal in volume, rate and tone. Affect: Calm and depressed. Mood: Mood depressed. Sad 08/22. Anxiety probably an 09/22. Feels hopeless, helpless and worthless. Feels guilty "definitely." Suicidal Ideation: Reports SI. Gives a safety promise for here. Homicidal Ideation: Denies HI. Hallucinations: Denies AH and VH. Last had AH a couple of weeks ago. Paranoid/Delusional Material: Denies PI and magical omer. Difficulties with thought organization: None. Insight: Poor. Judgment: Poor. Orientation: Ox3 except date 08/27/17. Cognition: A little slowed. Memory Function: Grossly intact. Estimate of intellectual functioning: Below average. Assets/Strengths Patient Identified Assets/Strengths: "My family." Impression/Plan Impression and Plan: Patient is here with SI in the context of cocaine use and medication non- adherence. Reports mother and step-father are ill. Patient is esssentially homeless. - Include all active medical diagnosis that require tx DSM 5 Diagnosis(es): Schizoaffective d/o, bipolar type. Cocaine use disorder. Opiate use disorder on MMP. - Initial Tx Plan for Active Psych & Medical Conditions Treatment Plan: The patient will be monitored on the unit for safety, substance withdrawal, psychosis and mood disorder. Additional information is needed from collaterals. Patient has been restarted on medication. Methadone will be reduced by 5 mg/day per unit protocol when urine is dirty. Anticipate once clinically stable, that the patient will be discharged to the community and be referred back to [facility]. - Factors that would help patient function - in a less restrictive setting. Factors: Not suicidal.
[2017-08-23] VITALS (8 sets, daily range): BP systolic 102–123; BP diastolic 63–70
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
--- NOTE | 2017-08-23 15:07 | CP SOUTH PROGRESS NOTE PSYCH ---
Psych (Inpt) Progress Note Progress Note Include the following elements, when applicable: Involvement in the active treatment of the patient with behavioral observations of the patient and the patient's response to the treatment. Review of the ongoing treatment process in the context of the treatment plan. Indication of how multi-disciplinary staff members are carrying out the treatment plan. Plans for future interventions and recommendations for revision of the treatment plan. Liaison with other physicians/providers. Progress Note: Case and treatment plan discussed in team meeting. Reports that the patient endorsed suicidal ideation. Yesterday he wore briefs over his boxers. He was noted to be sleeping in other people's beds. Patient seen at 1:18 PM. He was asleep in bed but got up and met with me in office. Feels "not good." He is upset, stating "[you] took me off all my medication." He is on a methadone taper down because of dirty urine. I did not continue his Klonopin because, per RESERVOIR CARETAKER, it was last filled at an outpatient pharmacy on 06/21/17. He maintains he was using some Klonopin that he had saved up. He does have CIWA-triggered Ativan available to him for benzodiazepine withdrawal. Affect is depressed. Rates sad mood 8/10 and anxiety 10/10. Feels hopeless, helpless and worthless. Denies feeling guilty. Reports suicidal ideation to get into a friend's gun rack. He then stated "will I do it? I don' t know." He gives a safety promise for here. Reports vague homicidal ideation and he did not identify a target. Denies auditory and visual hallucinations. Denies paranoid ideation. Reports he slept alright. Appetite is not that good. Energy is not the best. IMPRESSION: Slow progress. Continue present treatment plan. Methadone taper is in progress.
[2017-08-24] VITALS (10 sets, daily range): BP systolic 11–142; BP diastolic 62–78
--- NOTE | 2017-08-24 11:41 | SOCIAL WORKER PROG NOTE PSYCH ---
Social Work Progress Note Progress Note Bassem and I attempted to call his Brother Ramses together from the conference room. Voicemail was received and a message left. Bassem stated that he hasn't spoken with his Brother in 3 months. He said he couldn't call and ask his Brother for money. He talked about feeling anxious about his Mother and everything that may be going on with her medically. He said he is hoping his family can provide an update for him. We attempted to call his Mother. I got her voicemail and left a message. Bassem reported suicidal thoughts today with a plan to get a gun and shoot himself. He reports he doesn't have a gun but always knows people he can get one from. He expressed his frustration in having his Methadone dose tapered. I explained he had a dirty tox screen and this is protocal. He denied cocaine use, only admitted to taking some Aderrall. He said that he feels he needs to be here until Monday the latest to work on his depression and SI. I asked where he would be living if he were to leave? He said he didn't know. I asked if we could submit a crisis and respite referral. He said he would like to go to the [facility] if possible. I asked if he was receiving other tx at [facility] other than Methadone? He said he will be.
--- NOTE | 2017-08-24 14:20 | CP SOUTH PROGRESS NOTE PSYCH ---
Psych (Inpt) Progress Note Progress Note Include the following elements, when applicable: Involvement in the active treatment of the patient with behavioral observations of the patient and the patient's response to the treatment. Review of the ongoing treatment process in the context of the treatment plan. Indication of how multi-disciplinary staff members are carrying out the treatment plan. Plans for future interventions and recommendations for revision of the treatment plan. Liaison with other physicians/providers. Progress Note: Case and treatment plan discussed in team meeting. Staff reports that the patient is denying suicidal ideation. CIWA scores are unremarkable. Described as stable. Appears mildly sedated after receiving methadone dose. Wants methadone given at 6 AM. We will make this change. Requesting Motrin. Patient seen at 10:40 AM. He was sitting in lounge prior to meeting with me in office. States he feels anxious and depressed. Reports he is trying to reach his brother and mother. States he needs to know what is going on (with regard to his family). Reports he has not talked to his mother in 5 weeks because he has no relationship with his mother's . Patient appears awake and alert. Affect is calm and blunted. He hopes that his brother can help him with housing. Rates anxiety 7/10 and sad mood 8/10. Feels hopeless, helpless and worthless. Denies feeling guilty. Reports suicidal ideation, "they're just there." Gives a safety promise for here. Reports homicidal ideation but it is less prominent than his suicidal thoughts. He is vague as to a homicide target. Reports auditory hallucinations, command auditory hallucinations to hurt himself and telling him that something is wrong with his mother. Denies visual hallucinations and paranoid ideation. Reports sleep is not that good. Appetite is okay. Energy is not much. Denies side-effects from current medications, stating he just has withdrawal. He agrees to increase olanzapine dose to 20 mg nightly because of voices. Requests prn Motrin for his back and I ordered this. IMPRESSION: Slow progress. Continue present treatment plan. Monitor response to increase in olanzapine dose.
--- NOTE | 2017-08-24 16:31 | SOCIAL WORKER PROG NOTE PSYCH ---
Social Work Progress Note Progress Note Determination Status: PENDED The services requested require additional review. You will be contacted regarding the status of this request if further information is needed. An authorization decision will be made within the required timeframes and details of that decision may be found under the member's authorization history. Member Name Member ID Member Subscriber Name Subscriber ID HEATHER BROCKRAUL [id number] HEATHER Kelley ESTRELLA [id number] Pended Authorization # Client Authorization # Type of Request [id number] CONCURRENT Date of Admission/ Start of Services Requested From Submission Date 08/21/2017 08/24/2017 08/24/2017 Level of Service Type of Service Level of Care Type of Care INPATIENT/HLOC [facility] Inpatient [facility]patient [facility] - [facility]patient [facility] Reason Code P76 Provider Name & Address Provider ID Provider Alternate ID NPI # for Authorization LAYNE CEDILLO [id number] N/A [address] [facility] [id number] Message P76 Attached Documents There are no documents attached with this Authorization Request Document Title Document Description Authorization Printing & Downloading Options: (For the best print results, please print in 'Landscape' format) Print the Results page (this page) Print the entire Authorization Request Download the entire Authorization Request Return to the [employer] homepage
[2017-08-25 07:43] VITALS: BP 121/69
[2017-08-25 08:00] VITALS: BP 121/69
--- NOTE | 2017-08-25 11:32 | SOCIAL WORKER PROG NOTE PSYCH ---
Social Work Progress Note Progress Note Dr. Parada and I met with Bassem this morning. Bassem reported that he had spoken with his Mother this morning and she does not have cancer, but his StepFather has stage 4 lung cancer. He does not have a good relationship with him, so he didn't seem upset by this news. He was happy to hear that his Mother is okay. He reported that she will be stopping by to give him some money. I asked how much? He said he didn't know. We talked about his referral to Crisis and Respite. I told him he really needs a plan of where he would go from there, other than a residential. He suggested rehab. I told him if he was willing to be referred to rehab we could start that process here. Bassem is upset over the Methadone taper that is happening while he is here. He continues to say that has never happened before and he doesn't understand why the doctor is making him suffer. He is complaining of pain in his back. He reports a sad and anxious mood today rating both at an 8 (0-10, 10 being most severe). He reports suicidal and homicidal ideations. He doesn't say who he feels homicidal towards stating "I don't know yet." He gives a safety promise on the unit. He has no auditory or visual hallucinations. He is having some complaints of feeling "spaced out." He wants his Zyprexa lowered.
[2017-08-25 12:06] VITALS: BP 124/55
[2017-08-25 12:15] VITALS: BP 124/55
--- NOTE | 2017-08-25 15:51 | CP SOUTH PROGRESS NOTE PSYCH ---
Psych (Inpt) Progress Note Progress Note Include the following elements, when applicable: Involvement in the active treatment of the patient with behavioral observations of the patient and the patient's response to the treatment. Review of the ongoing treatment process in the context of the treatment plan. Indication of how multi-disciplinary staff members are carrying out the treatment plan. Plans for future interventions and recommendations for revision of the treatment plan. Liaison with other physicians/providers. Progress Note: Case and treatment plan discussed in team meeting. Staff reports that the patient reported suicidal ideation. Appearing more alert. Acknowledged history of abusing benzodiazepines. Patient seen at 10:53 AM was social science manager, Traci. States he spoke with his mother today. Reports mother does not have leukemia but her immune system is reportedly "messed up." Reports mother's has stage IV lung cancer. Patient appears awake and alert. Affect is calm and blunted. Patient expects mother will be dropping off some money for him here over the weekend. Patient hopes to go to [facility] and then to a sober house or a 30 day drug rehab. He would like to leave on Monday. Reports mood is down. Affect is calm and blunted. Reports back pain is 9/10, sad mood is 8/10 and anxiety is 8/10. Feels hopeless, helpless, worthless and guilty. Reports suicidal ideation. Gives a safety promise for here. Reports homicidal ideation but when asked specifics about the target, he responded "I don't know yet." Denies auditory and visual hallucinations and paranoid ideation. States he does not like Zyprexa 20 mg. It makes him feel spaced out. I lowered dose back to 15 mg at bedtime. Patient request to speak to the patient advocate about methadone taper and this meeting took place. IMPRESSION: Slow progress. Continue present treatment plan. Methadone taper remains in progress because of dirty urine. Anticipate likely discharge on Monday.
[2017-08-25 15:58] VITALS: BP 120/64
[2017-08-25 20:33] VITALS: BP 126/66
[2017-08-26 08:05] VITALS: BP 124/75
--- NOTE | 2017-08-26 11:18 | CP SOUTH PROGRESS NOTE PSYCH ---
Psych (Inpt) Progress Note Progress Note Include the following elements, when applicable: Involvement in the active treatment of the patient with behavioral observations of the patient and the patient's response to the treatment. Review of the ongoing treatment process in the context of the treatment plan. Indication of how multi-disciplinary staff members are carrying out the treatment plan. Plans for future interventions and recommendations for revision of the treatment plan. Liaison with other physicians/providers. Progress Note: Pt notes that he had some difficulty with sleep overnight. Notes passive vague SI which "comes and goes." Denies more active SI or HI. Hopeful for uncle visit today. Current Medications Sig/Greg Start time Last Medication Dose Route Stop Time Status Admin Al Hydroxide/Mg 30 ML Q4-6 PRN PRN 08/22 1030 AC Hydroxide PO Amlodipine Besylate 5 MG DAILY 08/18 2099 AC 08/26 PO 0939 Aspirin 325 MG DAILY 08/18 2099 AC 08/26 PO 0939 Atenolol 50 MG DAILY 08/18 2099 AC 08/26 PO 0939 Benztropine Mesylate 1 MG Q6P PRN 08/22 1030 AC PO Benztropine Mesylate 1 MG Q6P PRN 08/22 1030 AC IM Clonidine 0.1 MG DAILY 08/18 2099 AC 08/26 PO 0939 Divalproex Sodium 500 MG BID 08/18 2099 AC 08/26 PO 0939 Gabapentin 300 MG BID 08/18 2099 AC 08/26 PO 0939 Haloperidol 5 MG Q6P PRN 08/22 1030 AC PO Haloperidol 5 MG Q6P PRN 08/22 1030 AC IM Ibuprofen 600 MG Q6P PRN 08/24 1100 AC 08/26 PO 075 Lorazepam 2 MG Q2P PRN 08/22 1045 DC 08/22 PO 2124 Lorazepam 1 MG Q2P PRN 08/22 1045 DC PO Lorazepam 2 MG Q6P PRN 08/22 1030 AC IM Magnesium Hydroxide 30 ML AT BEDTIME NEED.. 08/22 1030 AC PO Methadone HCl 70 MG ONCE ONE 08/28 599 AC PO 08/28 600 Methadone HCl 75 MG ONCE ONE 08/27 06 AC PO 08/27 06 Methadone HCl 80 MG ONCE ONE 08/26 0600 DC 08/26 PO 08/26 0601 0556 Mirtazapine 15 MG AT BEDTIME 08/18 2099 AC 08/25 PO 2121 Multivitamins 1 TAB DAILY 08/22 1621 AC 08/26 PO 0939 Nicotine 2 MG Q2P PRN 08/22 1045 AC PO Olanzapine 15 MG QPM 08/25 2099 AC 08/25 PO 2121 Trazodone HCl 150 MG QPM 08/26 2100 UNVr PO Trazodone HCl 100 MG QPM 08/18 2099 DC 08/25 PO 212 Laboratory Tests 08/25 614 Toxicology Valproic Acid (50 - 120 ug/mL) 59.8 Vital Signs Date Time Temp Pulse Resp B/P B/P Pulse O2 O2 Flow FiO2 Mean Ox Delivery Rate 08/26 0939 72 124/75 08/26 0939 72 124/75 08/26 0939 72 124/75 08/26 0805 98.8 72 124/75 08/25 2033 97.7 68 126/66 08/25 1558 65 120/64 08/25 1215 67 124/55 08/25 1206 67 124/55 MSE Appearance: as stated age Speech : nl rate, rhythm, volume and prosody Behavior: cooperative Motor: no psychomotor agitation or retardation Mood : alright Affect : flat, non-labile, anxious, irritable, appropriate, constricted Thought process: linear and goal directed Thought content : no delusions or paranoia Perceptions: denied AVHs, passive vague SI that "comes and goes" or HI Insight: poor Judgment: poor A/P: Pt with MDD and SI in the setting of mother's illness. - Continue current medication regimen except increased trazodone to 150mg nightly - Encourage integration into the milieu
[2017-08-26 12:30] VITALS: BP 115/60
[2017-08-26 16:02] VITALS: BP 122/60
[2017-08-26 19:57] VITALS: BP 110/63
[2017-08-27 07:58] VITALS: BP 129/75
--- NOTE | 2017-08-27 10:57 | CP SOUTH PROGRESS NOTE PSYCH ---
Psych (Inpt) Progress Note Progress Note Include the following elements, when applicable: Involvement in the active treatment of the patient with behavioral observations of the patient and the patient's response to the treatment. Review of the ongoing treatment process in the context of the treatment plan. Indication of how multi-disciplinary staff members are carrying out the treatment plan. Plans for future interventions and recommendations for revision of the treatment plan. Liaison with other physicians/providers. Progress Note: Pt notes that he is "fine" today. Denies SI or HI. Feeling better. Slept well. MSE Appearance: as stated age Speech : nl rate, rhythm, volume and prosody Behavior: cooperative Motor: no psychomotor agitation or retardation Mood : fine Affect : flat, non-labile, anxious, very irritable, appropriate, constricted Thought process: linear and goal directed Thought content : no delusions or paranoia Perceptions: denied AVHs, denied SI or HI Insight: poor Judgment: poor A/P: Pt with MDD and SI in the setting of mother's illness. - Continue current medication regimen - Encourage integration into the milieu
[2017-08-27 12:15] VITALS: BP 119/67
[2017-08-27 15:34] VITALS: BP 123/58
[2017-08-27 20:04] VITALS: BP 132/63
[2017-08-28 07:35] VITALS: BP 125/76
[2017-08-28 08:15] VITALS: BP 125/76
--- NOTE | 2017-08-28 08:51 | SOCIAL WORKER PROG NOTE PSYCH ---
Social Work Progress Note Progress Note Bassem stated he's ready to go today. Eager to d/c as soon as possible. Asked if he was having thoughts of using today? He denied this. Asked where he was going to be living? He stated he was going to [facility] group home. Asked how his mood was? He stated "I'm much better, I feel fine." Asked who was going to prescribe for him? He said he can see someone at [facility]. I told him he can speak with the doctor after team meeting and that he can leave later this morning. He said he has a bus pass to catch the bus.
[2017-08-28] MEDS ORDERED: REMERON15 M2 PO (10:19)
[2017-08-28] MEDS ORDERED: NICORELIEF2 MG PO (10:19)
[2017-08-28] MEDS ORDERED: OLANZAPINE15 M1 PO (10:19)
[2017-08-28] MEDS ORDERED: TENORMIN50 M1 PO (10:19)
[2017-08-28] MEDS ORDERED: IBUPROFEN600 M1 PO (10:19)
[2017-08-28] MEDS ORDERED: GABAPENTIN300 M2 PO (10:19)
[2017-08-28] MEDS ORDERED: ASPIRIN325 M2 PO (10:19)
[2017-08-28] MEDS ORDERED: DIVALPROEX SOD500 M2 PO (10:19)
[2017-08-28] MEDS ORDERED: MULTI-VITAMIN1 EACH PO (10:19)
[2017-08-28] MEDS ORDERED: TRAZODONE HCL150 M1 PO (10:19)
[2017-08-28] MEDS ORDERED: AMLODIPINE BESYL5 M1 PO (10:19)
[2017-08-28] MEDS ORDERED: CLONIDINE HCL0.1 MG PO (10:19)
--- NOTE | 2017-08-28 10:34 | Patient Discharge Instructions ---
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 Substance use. Psy Discharge Primary Diag+ Schizoaff do bipolar type Psy Discharge Secondary Diag+ Cocaine use d/o Opiate use d/o on MMP Hx TBI Hypertension Hx GERD Hepatitis C Chronic back pain Summary Tests/Major Procedures Lab ALT 66 U/L 08/18/17 1744 AST 61 U/L H 08/18/17 1744 BUN 25 mg/dL H 08/18/17 1744 BUN/Creatinine Ratio 27.8 % H 08/18/17 1744 Carbon Dioxide 30 mmol/L 08/18/17 1744 Chloride 99 mmol/L 08/18/17 1744 Cholesterol 128 MG/DL 05/31/17 2109 Cholesterol/HDL Ratio 3 % 05/31/17 2109 Creatinine 0.9 mg/dL 08/18/17 1744 Estimated GFR > 60 ml/min 08/18/17 1744 Free T4 1.58 ng/dL 08/18/17 1744 Glucose 102 mg/dL H 08/18/17 1744 HDL Cholesterol 45 mg/dL 05/31/17 2109 Hemoglobin A1c 5.4 % 05/31/17 2109 LDL Cholesterol, Calc 76 mg/dL 05/31/17 2109 Potassium 4.3 mmol/L 08/18/17 1744 Sodium 140 mmol/L 08/18/17 1744 TSH &T3 &Free T4 Intrp 0.494 uIU/mL 08/18/17 1744 Total T3 4.33 ng/mL H 08/18/17 1744 Triglycerides 36 mg/dL 05/31/17 2109 Absolute Lymphocytes 1.1 /CUMM L 08/18/17 1744 Gran % 76.2 % H 08/18/17 1744 Hct 43.3 % 08/18/17 1744 Hgb 14.4 G/DL 08/18/17 1744 Lymphocytes % 16.8 % L 08/18/17 1744 RDW 12.5 % 08/18/17 1744 WBC 6.6 /CUMM 08/18/17 1744 Methadone Screen > 735 NG/ML H 08/18/17 1819 Serum Alcohol < 10.0 MG/DL 08/18/17 1744 U Benzodiazepines Scrn > 800 NG/ML H 08/18/17 1819 Urine Cocaine Screen > 1000 NG/ML H 08/18/17 1819 Valproic Acid < 10.0 ug/mL L 08/18/17 1744 Valproic Acid 59.8 ug/mL 08/25/17 0615 Ur Microscopic SEDIMENT EXAMINED 08/18/17 1819 Urine Bacteria MOD H 08/18/17 1819 Urine Ketones TRACE H 08/18/17 1819 Urine Mucus RARE 08/18/17 1819 Urine Protein TRACE MG/DL H 08/18/17 1819 Urine RBC 1-3 /HPF 08/18/17 1819 Studies Pending at [place]: None. Patient Instructions Contact Information Your Psychiatrist on [facility] was Karma HOSKINS,Ruddy * If you are experiencing an emergency related to this hospitalization, please call [phone] to contact the treating psychiatrist or the psychiatrist-on- call. * To Request a copy of your medical records, please contact the Medical Records Department at [phone]. * To request results of studies pending at the time of discharge, please call [phone]. * Continue your Medications until directed to stop by your Healthcare provider. General Medication Information Please continue to take your new medications and your continued home medications , unless otherwise indicated on your discharge medication list, or unless directed by your MD or WATER TREATMENT SPECIALIST to stop them. Special Instructions Diet Regular Activity Normal Other Inst/Recommendations Stay C&S! See PCP about abnormal labsabove and for general medical care. - Tobacco Use Treatment Offered Post DC Medications Offered: Script Given-See Med List Post DC Tobacco Treatment Plan: Jan Tobacco Tx [facility] Program Appt Date: 09/06/17 Program Appt Time: 1600 - EtOH/Drug Use D/O Treatment Offered Post DC Medications Offered: Script Given-See Med List (On methadone through [facility] ) Post DC EtOH/SubAbuse TX Plan: Other SubAbuse/Dual Pgm ([facility]) Program Appt Date: 08/28/17 Program Appt Time: 1300 Metabolic Screening () Not Applicable, patient not on a neuroleptic. OR () Patient on a neuroleptic(s) . Enter below results for Hemoglobin A1C, and lipid panel if obtained during the last 365 days. BMI: 33.000 Blood Pressure: 125/76 Laboratory Results From [facility] (If applicable): [x] Lab Cholesterol 128 MG/DL 05/31/17 2109 Cholesterol/HDL Ratio 3 % 05/31/172108 HDL Cholesterol 45 mg/dL 05/31/172108 Hemoglobin A1c 5.4 % 05/31/172108 LDL Cholesterol, Calc 76 mg/dL 05/31/172108 Triglycerides 36 mg/dL 05/31/172108 Advance Directives Does the Patient have Medical Advance Directives No/Refused further info Does Pt have Psychiatric Advance Directives? No/Refused further info Does Patient have a Designated Surrogate Decision Maker: No Information About Psychiatric Advance Directives Provided? Refused Discharge Plan Post Hospital Treatment Plan: [facility]. [facility].
--- NOTE | 2017-08-28 16:10 | CP SOUTH PROGRESS NOTE PSYCH ---
Psych (Inpt) Progress Note Progress Note Include the following elements, when applicable: Involvement in the active treatment of the patient with behavioral observations of the patient and the patient's response to the treatment. Review of the ongoing treatment process in the context of the treatment plan. Indication of how multi-disciplinary staff members are carrying out the treatment plan. Plans for future interventions and recommendations for revision of the treatment plan. Liaison with other physicians/providers. Progress Note: Dr. Ceron's notes reviewed. Case and treatment plan discussed in team meeting. Staff reports that the patient is denying suicidal ideation. Described as a model patient. Feeling ready to go. Plans to go to [facility]. Patient seen at 10:23 AM. States he is all right. Plans to return to [place] and the [facility] where he had been living. Affect is calm and blunted. States "I feel good." Has no complaints. Rates sad mood 0/10 and anxiety 3/10. Denies feeling hopeless, helpless, worthless or guilty. Denies active and passive suicidal ideation. Denies homicidal ideation, stating "definitely not." Denies auditory and visual hallucinations and paranoid ideation. Describes sleep as "fine, just fine." Describes appetite as fine. Reports energy is 50%. Tolerating medications well, without complaint. Feels ready and safe for discharge. Plans to go to [facility] today at 1 PM. IMPRESSION: Condition improved. Okay for discharge today with plan as above.
--- NOTE | 2017-08-28 16:18 | DISCHARGE SUMMARY REPORT-PSYCH ---
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 Substance use. Psy Discharge Primary Diag: Schizoaff do bipolar type Psy Discharge Secondary Diag: Cocaine use d/o Opiate use d/o on MMP Hx TBI Hypertension Hx GERD Hepatitis C Chronic back pain Hospital Course Significant Lab Findings: Lab ALT 66 U/L 08/18/17 1744 AST 61 U/L H 08/18/17 1744 BUN 25 mg/dL H 08/18/17 1744 BUN/Creatinine Ratio 27.8 % H 08/18/17 1744 Carbon Dioxide 30 mmol/L 08/18/17 1744 Chloride 99 mmol/L 08/18/17 1744 Cholesterol 128 MG/DL 05/31/17 2109 Cholesterol/HDL Ratio 3 % 05/31/17 2109 Creatinine 0.9 mg/dL 08/18/17 1744 Estimated GFR > 60 ml/min 08/18/17 1744 Free T4 1.58 ng/dL 08/18/17 1744 Glucose 102 mg/dL H 08/18/17 1744 HDL Cholesterol 45 mg/dL 05/31/17 2109 Hemoglobin A1c 5.4 % 05/31/17 2109 LDL Cholesterol, Calc 76 mg/dL 05/31/17 2109 Potassium 4.3 mmol/L 08/18/17 1744 Sodium 140 mmol/L 08/18/17 1744 TSH &T3 &Free T4 Intrp 0.494 uIU/mL 08/18/17 1744 Total T3 4.33 ng/mL H 08/18/17 1744 Triglycerides 36 mg/dL 05/31/17 2109 Absolute Lymphocytes 1.1 /CUMM L 08/18/17 1744 Gran % 76.2 % H 08/18/17 1744 Hct 43.3 % 08/18/17 1744 Hgb 14.4 G/DL 08/18/17 1744 Lymphocytes % 16.8 % L 08/18/17 1744 RDW 12.5 % 08/18/17 1744 WBC 6.6 /CUMM 08/18/17 1744 Methadone Screen > 735 NG/ML H 08/18/17 1819 Serum Alcohol < 10.0 MG/DL 08/18/17 1744 U Benzodiazepines Scrn > 800 NG/ML H 08/18/17 1819 Urine Cocaine Screen > 1000 NG/ML H 08/18/17 1819 Valproic Acid < 10.0 ug/mL L 08/18/17 1744 Valproic Acid 59.8 ug/mL 08/25/17 0615 Ur Microscopic SEDIMENT EXAMINED 08/18/17 181 Urine Bacteria MOD H 08/18/17 1819 Urine Ketones TRACE H 08/18/17 181 Urine Mucus RARE 08/18/17 181 Urine Protein TRACE MG/DL H 08/18/17 1819 Urine RBC 1-3 /HPF 08/18/17 1819 Course Complications: None. Consultations: The patient was seen by Dr. Mallory for admission H&P. Per Dr. Mallory's note of 08/21/17, "Assessment/Plan 46-year-old male past medical history of hypertension, polysubstance abuse and active tobacco use here with depressive symptoms. Treatment of the polysubstance abuse and depression as per psychiatry. I noticed that he is on 2 beta blockers but his claim history only has attenolol so we'll continue his atenolol and Norvasc and stopped the metoprolol. I did speak to the psych nurse about questionable overmedication and drowsiness secondary to the same. Patient says he'll follow-up with his regular PCP on discharge." Allergies: Coded Allergies: carbamazepine (From TEGRETOL) (Intermediate, HIVES 01/12/16) phenytoin (Intermediate, HIVES 01/12/16) sertraline (SUICIDAL THOUGHTS 01/12/16) Hospital Course/TX Response: The patient was monitored on the unit for safety, psychosis and mood disorder. He participated in multi-modal treatments on the unit. Per unit protocol, methadone was reduced by 5 mg/day due to dirty urine on presentation. The patient was not happy about methadone reduction. Sedation cleared with the dose reduction. Zyprexa dose was increased to 20 mg qhs because of complaint of AH but patient did not tolerate higher dose well, and it was reduced back to 15 mg qhs. Mood and affect have improved. SI, HI and AH have remitted. Progress note from date of discharge, 08/28/17: "Dr. Ceron's notes reviewed. Case and treatment plan discussed in team meeting. Staff reports that the patient is denying suicidal ideation. Described as a model patient. Feeling ready to go. Plans to go to [facility]. Patient seen at 10:23 AM. States he is all right. Plans to return to [place] and the [facility] where he had been living. Affect is calm and blunted. States "I feel good." Has no complaints. Rates sad mood 0/10 and anxiety 3/10. Denies feeling hopeless, helpless, worthless or guilty. Denies active and passive suicidal ideation. Denies homicidal ideation, stating "definitely not." Denies auditory and visual hallucinations and paranoid ideation. Describes sleep as "fine, just fine." Describes appetite as fine. Reports energy is 50%. Tolerating medications well, without complaint. Feels ready and safe for discharge. Plans to go to [facility] today at 1 PM. IMPRESSION: Condition improved. Okay for discharge today with plan as above." Discharge HBIPS - Tobacco Use Treatment Offered Post DC Medications Offered: Script Given-See Med List Post DC Tobacco Treatment Plan: Jan Tobacco Tx Pgm Program Appt Date: 09/06/17 Program Appt Time: 1600 - EtOH/Drug Use D/O Treatment Offered Post DC Medications Offered: Script Given-See Med List (On methadone) Post DC EtOH/SubAbuse TX Plan: Other SubAbuse/Dual Pgm ([facility]) Program Appt Date: 08/28/17 Program Appt Time: 1300 Metabolic Screening - Screen if on a Neuroleptic Medication - Metabolic screening should include: - Blood Pressure, BMI, Glucose or Hgb A1c, & a - Lipid profile from within the past 365 days. Metabolic Screening () Not Applicable, patient not on a neuroleptic. OR () Patient on a neuroleptic(s) . Enter below results for Hemoglobin A1C, and lipid panel if obtained during the last 365 days. BMI: 33.000 Blood Pressure: 125/76 Laboratory Results From [facility] (If applicable): [x] Lab Cholesterol 128 MG/DL 05/31/172108 Cholesterol/HDL Ratio 3 % 05/31/172108 HDL Cholesterol 45 mg/dL 05/31/172108 Hemoglobin A1c 5.4 % 05/31/172108 LDL Cholesterol, Calc 76 mg/dL 05/31/172108 Triglycerides 36 mg/dL 05/31/172108 Discharge Instructions General Discharge Information Multiple Neuroleptics: ([x]) Not Applicable OR Document below three failed attempts at monotherapy, or a plan to taper to monotherapy, or augmentation of Clozapine. () Discharge Diet Regular Discharge Activity Normal DC Disposition: [facility] + [facility]. Referrals Ordered Referrals Provider Referral 08/29/17 For Groups: [[facility]] Patient will resume services at the [facility] 08/29/17 for Methadone maintenance therapy and ask to see [place] [address] Provider Referral 09/06/17 For Groups: Outpatient Psychiatry [facility] Smoking Cessation [facility] 09/06/17 4pm [address] [address] Prescriptions Stop taking the following medications: Aspirin (Ecotrin*) 81 MG TABLET. ORAL DAILY Docusate Sodium (Docusate Sodium) 100 MG CAPSULE ORAL THREE TIMES DAILY Qty = 42 Trazodone HCl (Trazodone HCl) 100 MG TABLET ORAL Every night Qty = 15 Metoprolol Tartrate (Metoprolol Tartrate) 25 MG TABLET ORAL DAILY Qty = 15 Cyclobenzaprine HCl (Cyclobenzaprine HCl) 10 MG TABLET ORAL TWICE DAILY Qty = 30 Pantoprazole Sodium (Pantoprazole Sodium) 40 MG TABLET. ORAL DAILY Qty = 30 Polyethylene Glycol 3350 (Polyethylene Glycol 3350) 17 GRAM POWD.PACK ORAL DAILY Qty = 30 Clonazepam (Clonazepam) 2 MG TABLET ORAL TWICE DAILY Continue taking these medications: Methadone Hydrochloride (Methadone HCl) 10 MG TABLET 70 Milligram ORAL DAILY Comments: Last Taken:08/28/17 Time:6am Gabapentin (Gabapentin) 300 MG CAPSULE 1 Capsule ORAL TWICE DAILY Qty = 28 Comments: Last Taken:08/28/17 Time:8am This prescription has been renewed Start taking the following new medications: Nicotine (Nicorelief) 2 MG GUM 1 Gum ORAL EVERY 2 HOURS NEEDED as needed for nicotine craving Qty = 100 No Refills Comments: NOT TAKEN IN HOSPITAL Aspirin (Aspirin*) 325 MG TABLET 1 Tablet ORAL DAILY Qty = 14 No Refills Comments: Last Taken:08/28/17 Time:8am Olanzapine (Olanzapine) 15 MG TABLET 1 Tablet ORAL Every night Qty = 14 No Refills Comments: Last Taken:08/27/17 Time:9pm Trazodone HCl (Trazodone HCl) 150 MG TABLET 1 Tablet ORAL AT BEDTIME Qty = 14 No Refills Comments: Last Taken:08/27/17 Time:9pm The following medications have been changed: Old: Multivitamin (Multi-Vitamin Daily) 1 EACH TABLET 1 Tablet ORAL DAILY New: Multivitamin (Multi-Vitamin Daily) 1 EACH TABLET 1 Tablet ORAL DAILY Qty = 14 Comments: Last Taken:08/28/17 Time:8am Old: Atenolol (Tenormin) 50 MG TABLET 50 Milligram ORAL DAILY Qty = 15 New: Atenolol (Tenormin) 50 MG TABLET 1 Tablet ORAL DAILY Qty = 14 Comments: Last Taken:08/28/17 Time:8am Old: Divalproex Sodium (Divalproex Sodium) 500 MG TABLET.DR 500 Milligram ORAL TWICE DAILY Qty = 30 New: Divalproex Sodium (Divalproex Sodium) 500 MG TABLET.DR 1 Tablet ORAL TWICE DAILY Qty = 28 Comments: Last Taken:08/28/17 Time:8am Old: Mirtazapine (Remeron) 15 MG TABLET 15 Milligram ORAL 2000 Qty = 15 New: Mirtazapine (Remeron) 15 MG TABLET 1 Tablet ORAL AT BEDTIME Qty = 14 Comments: Last Taken:08/27/17 Time:9pm Old: Ibuprofen (Ibuprofen) 600 MG TABLET 1 Tablet ORAL THREE TIMES DAILY Qty = 90 New: Ibuprofen (Ibuprofen) 600 MG TABLET 1 Tablet ORAL THREE TIMES DAILY as needed for pain Qty = 42 Instructions: with food Comments: Last Taken:08/28/17 Time:6am Old: Clonidine HCl (Clonidine HCl) 0.1 MG TABLET 1 Tablet ORAL DAILY Qty = 15 New: Clonidine HCl (Clonidine HCl) 0.1 MG TABLET 1 Tablet ORAL DAILY Qty = 14 Comments: Last Taken:08/28/17 Time:8am Old: Amlodipine Besylate (Amlodipine Besylate) 5 MG TABLET 1 Tablet ORAL DAILY Qty = 15 New: Amlodipine Besylate (Amlodipine Besylate) 5 MG TABLET 1 Tablet ORAL DAILY Qty = 14 Comments: Last Taken:08/28/17 Time:8am Other Inst/Recommendations Stay C&S! See PCP about abnormal labsabove and for general medical care. Studies Pending at Discharge None. Copies To: [facility]
--- NOTE | 2017-08-28 17:30 | SOCIAL WORKER PROG NOTE PSYCH ---
Social Work Progress Note Faxed Referral(s) Referred To: [facility] Transition of Care Documents sent: Health Summary Faxed to: [facility] Fax #: [phone] Faxed by: Traci Saldivar Date faxed: 08/28/17 Time Faxed: [phone]
== END 2017-08-28 11:46 | DRG 750 ==
LOC: ERH 17:09 → CP SOUTH 08-21 11:09 → ERHI 08-21 11:09 → ENTRNSPT 08-21 14:11 → CP SOUTH 08-21 14:28 → EDTRNSPT 08-21 14:28 → EDTRNSPTSTS 08-21 14:28 → CP SOUTH 08-21 14:33 → CMPTRNSPT 08-21 14:41 → CP SOUTH 08-22 10:39
PROVIDERS: Physician Assistant Medical
DX: F25.0 Schizoaffective disorder, bipolar type (principal); F14.90 Cocaine use, unspecified, uncomplicated; F11.90 Opioid use, unspecified, uncomplicated; I10 Essential (primary) hypertension; K21.9 Gastro-esophageal reflux disease without esophagitis; B18.2 Chronic viral hepatitis C; Z87.820 Personal history of traumatic brain injury
CPT/HCPCS: 36415; 80307; 81001; G0463; G0480; J0515; J1630; J3490

== ENCOUNTER 2017-09-28 20:21 | Inpatient (IN) | payer OTHER ==
[~2017-09-28] VITALS: Ht 185.4 cm; Wt 113.4 kg
[~2017-09-28 20:21] MED LIST changes: +AMLODIPINE BESYL5 M1 PO; +ASPIRIN325 M2 PO; +CLONIDINE HCL0.1 MG PO; +GABAPENTIN300 M2 PO; +IBUPROFEN600 M1 PO; +METOPROLOL TART25 M1 PO; +NICORELIEF2 MG PO; +OLANZAPINE15 M1 PO; +POLYETHYLENE GL17 GM PO
[2017-09-28] MEDS ORDERED: CLONAZEPAM2 M2 PO (20:49)
[2017-09-28 21:12] LABS: ABSOLUTE BASOPHIL COUNT 0 /CUMM (0.0-0.2); ABSOLUTE EOSINOPHIL COUNT 0.1 /CUMM (0.0-0.7); ABSOLUTE GRANULOCYTE CT 4.3 /CUMM (1.4-6.5); ABSOLUTE LYMPH COUNT 1.3 /CUMM (1.2-3.4); ABSOLUTE MONOCYTE COUNT 0.6 /CUMM (0.10-0.60); BASOPHIL % 0.3 % (0.0-2.0); GRANULOCYTE % 68.2 % (42.2-75.2); HEMATOCRIT 42.9 % (42-52); MEAN CORPUSCULAR HGB 29.8 PG (27.0-31.0); MEAN CORPUSCULAR HGB CONC 33.4 G/DL (33.0-37.0); MEAN CORPUSCULAR VOLUME 89.3 FL (80.0-94.0); MEAN PLATELET VOLUME 8.1 FL (7.4-10.4); PLATELET COUNT 235 /CUMM (130-400); RBC DISTRIBUTION WIDTH 13.8 % (11.5-14.5); WHITE BLOOD CELL COUNT 6.2 /CUMM (4.8-10.8)
--- NOTE | 2017-09-29 00:31 | ED PSYCHIATRIC COMPLAINT ---
History of Present Illness General Chief Complaint: Psychiatric Related Complaint Stated Complaint: +SI Source: patient, old records, EMS Exam Limitations: no limitations Vital Signs & Intake/Output Vital Signs & Intake/Output Vital Signs Date Time Temp Pulse Resp B/P B/P Pulse O2 O2 Flow FiO2 Mean Ox Delivery Rate 10/01 0806 98.1 59 18 141/80 10/01 0806 98.1 59 18 141/80 10/01 0805 98.1 59 18 141/80 10/01 0743 98.1 59 141/80 09/30 1945 98.4 59 136/75 09/30 1742 97.8 49 123/72 09/30 1714 53 18 113/57 99 Room Air 09/30 1336 50 18 95/38 95 Room Air 09/30 1225 Room Air 09/30 1020 98.2 50 18 101/61 97 Room Air ED Intake and Output 10/01 0000 09/30 1200 Intake Total Output Total Balance Patient 250 lb Weight Allergies Coded Allergies: carbamazepine (From TEGRETOL) (Intermediate, HIVES 01/12/16) phenytoin (Intermediate, HIVES 01/12/16) sertraline (SUICIDAL THOUGHTS 01/12/16) Reconcile Medications Amlodipine Besylate 5 MG TABLET 1 TAB PO DAILY blood pressure Aspirin (Aspirin*) 325 MG TABLET 1 TAB PO DAILY heart health Atenolol (Tenormin) 50 MG TABLET 1 TAB PO DAILY blood pressure Clonazepam 2 MG TABLET 1 TAB PO BID ANXIETY (Reported) Clonidine HCl 0.1 MG TABLET 1 TAB PO DAILY blood pressure Divalproex Sodium 500 MG TABLET.DR 1 TAB PO BID mood stabilizer Gabapentin 300 MG CAPSULE 1 CAP PO BID NERVE PAIN Ibuprofen 600 MG TABLET 1 TAB PO TID PRN pain with food Methadone Hydrochloride (Methadone HCl) 10 MG TABLET 70 MG PO DAILY OPIATE SUBSTITUTE (Reported) Mirtazapine (Remeron) 15 MG TABLET 1 TAB PO AT BEDTIME depression Multivitamin (Multi-Vitamin Daily) 1 EACH TABLET 1 TAB PO DAILY vitamin supplement Nicotine (Nicorelief) 2 MG GUM 1 GUM PO Q2P PRN nicotine craving Olanzapine 15 MG TABLET 1 TAB PO QPM to clear thoughts Trazodone HCl 150 MG TABLET 1 TAB PO AT BEDTIME sleep Triage Note: PT TO ED FOR SI THOUGHTS SINCE YESTERDAY DENIES PLAN "BUT I HAVE ACCESS TO GUNS" CALM/COOPERATIVE. DENIES HI. Triage Nurses Notes Reviewed? yes Onset: Several days Duration: day(s):, constant, continues in ED, getting worse Timing: recent history Severity: severe Associated Symptoms: anxiety, impaired concentration, suicidal ideation HPI: One week prior to admission patient complains of increasing depression and suicidal thoughts secondary to family and girlfriend interactions. 1 day prior to admission he complains of increased suicidal thoughts considering using a gun that he has access. He denies fever chills nausea vomiting diarrhea abdominal pain chest pain shortness of breath headache dysuria rash bleeding. (Jovany Cordon MD) Past History Travel History Traveled to [place] past 21 day No Medical History Any Pertinent Medical History? 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 No (Jovany Cordon MD) Review of Systems Review of Systems Constitutional: Reports: no symptoms. EENTM: Reports: no symptoms. Respiratory: Reports: no symptoms. Cardiovascular: Reports: no symptoms. GI: Reports: no symptoms. Genitourinary: Reports: no symptoms. Musculoskeletal: Reports: no symptoms. Skin: Reports: no symptoms. Neurological/Psychological: Reports: see HPI, anxiety, confusion, depressed, emotional problems. Hematologic/Endocrine: Reports: no symptoms. Immunologic/Allergic: Reports: no symptoms. All Other Systems: Reviewed and Negative (Jovany Cordon MD) Physical Exam Physical Exam General Appearance: well developed/nourished, awake, anxious, mild distress Head: atraumatic, normal appearance Eyes: Bilateral: normal appearance, PERRL, EOMI. 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 yes 1 Age <19 or >45 years? yes 1 Depression/Hopelessness? yes 2 Previous Attempts/Psych Care yes 1 Rational Thinking Loss? yes 2 Single//? yes 1 Social Support? has support 0 Stated Future Intent? yes 2 Total 10 SAD PERSONS Done? yes (Bravo HOSKINS,Jovany) Progress Differential Diagnosis: drug intoxication, drug overdose, drug withdrawal, electrolyte abnormality, hypoglycemia Plan of Care: Orders Procedure Date/time Status Regular Diet 09/30 D Active EKG 09/30 1800 Active Vital Signs 09/30 1739 Active Inpt Psych Teach/Educate 09/30 1739 Active Nutritional Intake, Monitor 09/30 1739 Active Inpt Psych Auricular Acupunctu 09/30 1739 Active Admit to inpatient psych 09/30 1610 Active Vital Signs 09/30 1610 Complete Nursing Misc 09/30 UNK Active Intake & Output 09/28 2049 Complete Current Medications Sig/Greg Start time Last Medication Dose Stop Time Status Admin Amlodipine Besylate 5 MG DAILY 10/01 09 AC 10/01 (Norvasc) 0806 Aspirin 325 MG DAILY 10/01 09 AC 10/01 (Aspirin) 0806 Atenolol 50 MG DAILY 10/01 09 AC 10/01 (Tenormin) 0806 Clonidine 0.1 MG DAILY 10/01 09 AC 10/01 (Catapres) 0805 Nicotine 21 MG DAILY 10/01 09 AC 10/01 (Nicoderm) 0806 Methadone HCl 70 MG 0600 10/01 0600 AC 10/01 (Dolophine) 0614 Clonazepam 0.5 MG BID 09/30 2099 AC 10/01 (KlonoPIN) 10/07 Divalproex Sodium 500 MG BID 09/30 2099 AC 10/01 (Depakote) 0806 Gabapentin 300 MG BID 09/30 2099 AC 10/01 (Neurontin) 0807 Mirtazapine 15 MG AT BEDTIME 09/30 2099 AC 09/30 (Remeron) 2124 Trazodone HCl 150 MG QPM 09/30 2100 AC 09/30 (Desyrel) 2125 Benztropine Mesylate 1 MG Q6P PRN 09/30 1800 AC (Cogentin 1 MG Tablet) Benztropine Mesylate 1 MG Q6P PRN 09/30 1800 AC (Cogentin) Gabapentin 300 MG Q6-PRN PRN 09/30 1800 AC (Neurontin) Haloperidol 5 MG Q6P PRN 09/30 1800 AC (Haldol) Haloperidol 5 MG Q6P PRN 09/30 1800 AC (Haldol) Lorazepam 2 MG Q6P PRN 09/30 1800 AC (Ativan) Lorazepam 2 MG Q6P PRN 09/30 1800 AC (Ativan) Ibuprofen 600 MG TID PRN 09/28 2100 AC 09/30 (Motrin) 2129 Hand-Off Endorsed To: David Tomas MD Endorsed Time: 07 Pending: consult Comments: Patient became agitated and bargaining for benzodiazepine became aggressive unable to be redirected requiring chemical and physical restraint for patient and staff safety. (Jovany Cordon MD) Hand-Off Endorsed To: Torsten Chavez MD Endorsed Time: 190 Pending: consult Comments: Methadone and Klonopin doses have been confirmed. (David Tomas MD) Comments: 09/30/2017 5:13:07 AM patient signed out to me by Dr. 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 09/30/2017 7:21:49 AM patient signed out to Dr. rutherford at shift oil changer. (Torsten Chavez MD) Departure Departure Disposition: STILL A PATIENT Condition: Stable Clinical Impression Primary Impression: Depression with suicidal ideation Referrals: Julian Mcmahan MD (PCP/Family) Departure Forms: Customer Survey General Discharge Information (Jovany Cordon MD) (Jovany Cordon MD)
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
[2017-09-30 17:42] VITALS: BP 123/72
[2017-09-30 19:45] VITALS: BP 136/75
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
[2017-10-01 07:43] VITALS: BP 141/80
--- NOTE | 2017-10-01 11:54 | CPS PROVIDER INIT ASMT PSYCH ---
Psychiatric Admission Figure Model's Note Reviewed: Yes Patient Seen and Examined: Yes Identifying Information: young white man Chief Complaint: suicidal Reaction to Hospitalization: not pleased History of Present Illness Onset of Illness: years ago Circumstances Leading to Admission: suicidal thinking Problem(s) Justifying Need for Admission: suicidal thinking with plan to shoot self Other HPI: 46 year old gentleman with a history of psychiatric illness, personality disorder and substance use, admitted with suicidal ideation and plan to shoot self. He was recently discharged about one month ago with similar circumstances. He had been admitted at [facility] until two weeks ago, prior that at [place], and overall has had numerous admissions. He is in a methadone program and receives 70mg per day, however his cocaine was positive and he was initially agreeable to the taper yesterday evening on crisis re-eval, when he was transferred down to [facility], (though not happy about it) due to cocaine positive urine, which he denies he used, however this morning he said Im going to leave tomorrow then, I need my regular dose, they tried to get me off from 100mg and now its back to 70mg and I am just trying to get it back up, its for pain. He is annoyed but able to give basic history. He stated that his sleep is impaired, appetite is good. Pain from blisters on feet as well. He continues to state that he is suicidal and now is undecided about his plan to shoot self which is an improvement compared to threats yesterday. He has chronic poor follow up with outpatient treatment and drug use, with multiple hospital stays and manipulative behavior to continue admissions at times to secure housing. Past Psychiatric History Past Diagnosis(es)- if any: schizoaffective disorder cocaine use disorder opioid use disorder Past Precipitating Factors- if any: drug relapse, homelessness - Include inpatient and outpatient treatment Treatment History: extensive History of Suicide Attempts or Gestures 5 times overdose per him, once tried to turn on car in garage but failed Substance Abuse History: stated that he has been sober from alcohol for years Allergies: Coded Allergies: carbamazepine (From TEGRETOL) (Intermediate, HIVES 01/12/16) phenytoin (Intermediate, HIVES 01/12/16) sertraline (SUICIDAL THOUGHTS 01/12/16) Home Med List: see med rec - Include any medical condition(s) that may - impact the patient's recovery/remission Past Medical History: hcv, hld, hx seizures? , head injury , leg blisters, pain Past History Medical History Neurological: seizure, HEAD INJURY 1995 EENT: NONE Cardiovascular: hypertension Respiratory: NONE Gastrointestinal: GERD Hepatic: hepatitis C Renal: NONE Musculoskeletal: chronic back pain Psychiatric: anxiety, depression, schizo affective disorder, substance abuse Endocrine: NONE Blood Disorders: NONE Cancer(s): NONE [employer]/Reproductive: NONE History of MRSA: No History of VRE: No History of CDIFF: No Isolation History: Standard Surgical History Surgical History: none Psychiatric Family/Social Hx Family History Psychiatric Illness: denies Substance Use: denies Suicides: denies Social History Living Situation: living with a friend, hoping that he can live with his mother once her passes away Significant Relationships (family/friends): none Education: high school Vocation/Occupation: works in [employer]: 2x past arrests including 5 years incarceration (out two years ago) Healthly Behaviors Screening Tobacco Screening Tobacco Use from ED Docu: Never used - If tobacco counseling indicated - the following topics are required. - #1 Recognizing dangerous situations. - #2 Coping Skills. - #3 Basic information about quitting. Status of Tobacco Cessation Counseling: Not Applicable Cessation Med Status Not Applicable Alcohol Screening - ETOH screen POS if BAL >=80 or Audit-C>= M4/F3 Audit-C Score from Diag Assess: 0 Blood Alcohol Level: Laboratory Tests 09/28 2056 Toxicology Serum Alcohol (<10 MG/DL) < 10.0 Alcohol Use Screening Results: Neg per Audit C &/or BAL - If ETOH counseling indicated - the following topics are required. - #1 Express concern about the patient's - drinking at unhealthy levels, include informing - of national norms for moderate drinking: - men <= 14 drinks/week, max 4 drinks/occasion - women <= 7 drinks/week, max 3 drinks/occasion - #2 Providing feedback, including linking alcohol to - negative physical effects (liver injury, hypertension) - negative emotional effects (relationship problems and - depression) - negative occupational consequences (reduced work - performance) - #3 Advising the patient to abstain from alcohol or - to drink below national norms for moderate drinking - (as listed above). Status of ETOH Use Counseling: N/A B/C NO ETOH Use Metabolic Screening - Screen if on a Neuroleptic Medication - Metabolic screening should include: - Blood Pressure, BMI, Glucose or Hgb A1c, & a - Lipid profile from within the past 365 days. Metabolic Screening () Not Applicable, patient not on a neuroleptic. OR () Patient on a neuroleptic(s) . Enter below results for Hemoglobin A1C, and lipid panel if obtained during the last 365 days. BMI: 32.900 Blood Pressure: 141/80 Laboratory Results From [facility] (If applicable): Exam and Plan Mental Status Examination Ambulation Status: intact Appearance: stated age Attitude towards examiner: cooperative Psychomotor activity: normal to slowed Behavior: intact Quality of speech: normal Affect: constricted Mood: down Suicidal Ideation: passive with occasional plan to shoot self Homicidal Ideation: none Hallucinations: none Paranoid/Delusional Material: none Difficulties with thought organization: none Insight: impaired Judgment: impaired Orientation: x3 Cognition: fair Memory Function: fair Estimate of intellectual functioning: average Assets/Strengths Patient Identified Assets/Strengths: self advocate, working Impression/Plan Impression and Plan: 46 year old man with opiate use on methadone (he states for pain only), positive cocaine which he denies using, with plan to shoot self with a gun he states he has access to. He has had similar presentations in the past, and appears overall irritated depressed but not psychotic. He has contingent suicidal thinking and ambivalence about treatment, mostly focused on not having his methadone tapered, which I have explained to him is the protocol with cocaine positive urine. Plan: - continue 5mg taper each morning from 70mg - day team to call methadone program if he in fact stays long enought to have a sufficient taper as not to overdose him, prior to discharge - continue current meds - vpa level was 0, he was unlikely adherent with many of his meds as an outpatient. - he states he has a friend's home to stay with in the meanwhile after discharge - he may put jeffry 3 day letter if methadone taper continues. - groups, milieu, outpatient planning - Include all active medical diagnosis that require tx DSM 5 Diagnosis(es): schizoaffective disorder per history cocaine use disorder - Initial Tx Plan for Active Psych & Medical Conditions Treatment Plan: milieu, groups, medication, education - Factors that would help patient function - in a less restrictive setting. Factors: extensive risk factors - substance use, pain, past suicide attempts, unstable housing, no social support, suicidal thinking with high lethality plan. However he has had these chronic risk factors without adequate outpatient treatment for some time and his overall risk is unchanged. If he was intoxicated with cocaine, once his withdrawal resolves, risk would be mitigated.
[2017-10-01 19:59] VITALS: BP 131/78
[2017-10-02 07:45] VITALS: BP 120/75
--- NOTE | 2017-10-02 10:50 | CP SOUTH PROGRESS NOTE PSYCH ---
Psych (Inpt) Progress Note Progress Note I reviewed Dr. Daniel's notes for 10/01 The pt.'s progress, inpatient treatment plan, and aftercare plans were discussed in the treatment planning meeting (team members: ANABELA, RN, activities therapist, and Psychiatrist). Vital Signs Date Time Temp Pulse B/P B/P Pulse O2 FiO2 10/02 0745 98.6 58 120/75 Mental Status Examination Ambulation Status: intact Appearance: stated age Attitude towards examiner: cooperative Psychomotor activity: normal to slowed Behavior: intact Quality of speech: normal Affect: constricted Mood: down, passive wishes of no Homicidal Ideation, denied hallucinations: denied feeling paranoid, there were no delusions coherent/no difficulties with thought organization: poor insight, impaired judgment alert and oriented x3 Assessment: Bassem is a 46 year old man with opiate use on methadone (he states for pain only) , positive cocaine which he denies using, with plan to shoot self with a gun he states he has access to. He has had similar presentations in the past, and appears overall irritated depressed but not psychotic. He has contingent suicidal thinking and ambivalence about treatment, mostly focused on not having his methadone tapered, which I have explained to him is the protocol with cocaine positive urine. Diagnosis(es): schizoaffective disorder per history cocaine use disorder Treatment Plan: - continue 5mg Methadone taper each morning milieu, groups, medication, education
--- NOTE | 2017-10-02 17:37 | SOCIAL WORKER PROG NOTE PSYCH ---
Social Work Progress Note Progress Note This policy writer typist and Enma Brady attempted to meet with the patient, however, he was sleeping. Once awake, patient refused to meet asking to meet tomorrow. Claudia Brady and this policy writer typist spoke with nursing staff who stated that he was not feeling well due to decreasing Methadone dose. They stated that he did not want to return to [facility] as he was aware that his Methadone dose would decrease.
[2017-10-02 20:16] VITALS: BP 144/79
[2017-10-03 07:44] VITALS: BP 114/72
[2017-10-03 11:59] VITALS: BP 106/47
--- NOTE | 2017-10-03 13:46 | CP SOUTH PROGRESS NOTE PSYCH ---
Psych (Inpt) Progress Note Progress Note The pt.'s progress, inpatient treatment plan, and aftercare plans were discussed in the treatment planning meeting (team members: ANABELA, RN, Activities therapist, and Psychiatrist). Vital Signs Date Time Temp Pulse B/P B/P Pulse O2 FiO2 10/03 1159 47 106/47 10/03 0818 54 114/72 10/03 0818 54 114/72 10/03 0818 54 114/72 10/03 0744 98.5 54 114/72 10/03 2015 99.1 51 144/79 Mental Status Examination Pt. was alert and oriented x3, he was steady on his feet. He was marginally cooperative. Normal psychomotor activity, no abnormal behaviors, Behavior: intact Normal speech, constricted affect, mood is down, denied thinking of suicide today, denied homicidal Ideation, denied hallucinations, denied feeling paranoid , there were no delusions, he was coherent/no difficulties with thought organization, poor insight, impaired judgment. Assessment: Bassem Andrews is a 46-year-old single white man who was admitted because he said he had a plan to shoot self with a gun he states he has access to. He has had similar presentations in the past, and appears overall irritated depressed but not psychotic. He has contingent suicidal thinking and ambivalence about treatment, mostly focused on not having his methadone tapered, which I have explained to him is the protocol with cocaine positive urine. 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 2) F14.20 Stimulant (cocaine) use disorder, sever 3) Opiate use d/o on MMP 4) TBI Hypertension GERD Hepatitis C Chronic back pain Treatment Plan: Increase quetiapine to 100 mg at bedtime Continue 5mg/day Methadone taper each morning continue Naprosyn 500 mg twice daily
--- NOTE | 2017-10-03 16:50 | SOCIAL WORKER PROG NOTE PSYCH ---
Social Work Progress Note Progress Note [facility] concurrent review entered: Determination Status: PENDED The services requested require additional review. You will be contacted regarding the status of this request if further information is needed. An authorization decision will be made within the required timeframes and details of that decision may be found under the member's authorization history. Member Name Member ID Member Subscriber Name Subscriber ID HEATHER DE LA ROSA [id number] HEATHER DE LA ROSA [id number] Pended Authorization # Client Authorization # Type of Request [id number] CONCURRENT Date of Admission/ Start of Services Requested From Submission Date 09/30/2017 10/03/2017 10/03/2017 Level of Service Type of Service Level of Care Type of Care INPATIENT/HLOC Mental Health Inpatient Inpatient Hospital - Inpatient [facility]
--- NOTE | 2017-10-03 17:24 | SOCIAL WORKER PROG NOTE PSYCH ---
Social Work Progress Note Progress Note This continuity writer met with patient. He refused to meet yesterday due to not feeling well (decreasing Methadone dose). He stated that he fell earlier today due to "my knee going out." Nursing was aware of this. Patient reported increasing depression, however, unable to identify a trigger. He denied any susbtance use, and when asked about the postive UDS in the ED, patient adamently denied any use and stated that they [ED] "gave me the cocaine upstairs." Patient stated that he is prescribed Methadone by the [facility] for pain management. Patient stated that he came to because his mother lives in [place], but does not want to stay with her as he does not like her . He [facility] in [place]. He would also like to return to [facility] for individual therapy and medication management. He refused IOP. He also plans to return to [facility] for Methadone. Patient denied SI/HI/AH/VH. He refused a family meeting.
[2017-10-03 19:30] VITALS: BP 123/70
[2017-10-04 07:48] VITALS: BP 107/59
--- NOTE | 2017-10-04 11:26 | CP SOUTH PROGRESS NOTE PSYCH ---
Psych (Inpt) Progress Note Progress Note The pt.'s progress, inpatient treatment plan, and aftercare plans were discussed in the treatment planning meeting (team members: ANABELA, RN, Activities therapist, and Psychiatrist). Vital Signs Date Time Temp Pulse Resp B/P 10/04 0805 98.2 55 18 107/59 10/04 0805 98.2 55 18 107/59 10/04 0804 98.2 55 18 107/59 10/04 0748 98.2 55 107/59 Mental Status Examination Bassem was alert and oriented to time, place, and person. He was calm and cooperative. He showed slightly reduced psychomotor activity, no abnormal behaviors, and denied thinking of suicide. Bryon's speech was normal/not pressured and not slurred, he showed brighter affect today (wants to be discharged tomorrow), he says his mood is "better" He denied homicidal ideation, denied hallucinations, denied feeling paranoid, there were no delusions, he was coherent/no difficulties with thought organization Med Monitoring: Pt. denied side effects from medications, some sedation noticed by milagros, including some unsteadiness yesterday Assessment: Bassem Andrews is a 46-year-old single white man who was admitted because he said he had a plan to shoot self with a gun. He has had similar presentations in the past, and appeared in the ED to be "irritated, depressed, but not psychotic. " He has contingent suicidal thinking and ambivalence about treatment, mostly focused on not having his methadone tapered. 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 2) F14.20 Stimulant (cocaine) use disorder, sever 3) Opioid Use d/o on methadone 4) TBI; 5) Hypertension; 5) GERD; 6) Hepatitis C; 6) Chronic back pain Treatment Plan: No medication changes today
--- NOTE | 2017-10-04 17:51 | SOCIAL WORKER PROG NOTE PSYCH ---
Social Work Progress Note Progress Note This appeals writer met with patient. He was agreeable to discharging tomorrow and would like a medication and individual therapy appointment scheduled with [facility] in [place]. He also plans to return to the [facility] for Methadone treatment. Patient stated that he plans to return to [facility] in [place] tomorrow. He stated that he will continue stayin there and does not intend to schedule a CAN assessment with [facility]. Patient denied SI/HI/hallucinations. He identified a safety plan in which he stated that he has friends to call. He denied any access to weapons or guns. Patient was informed that he would be provided with crisis numbers and warm line numbers upon discharge, which he stated that he would accept.
[2017-10-04 19:37] VITALS: BP 128/70
[2017-10-05 07:26] VITALS: BP 125/77
[2017-10-05] MEDS ORDERED: DIVALPROEX SOD500 M2 PO (07:53)
[2017-10-05] MEDS ORDERED: TRAZODONE HCL150 M1 PO (07:53)
[2017-10-05] MEDS ORDERED: KLONOPIN0.5 M1 PO (07:53)
[2017-10-05] MEDS ORDERED: TENORMIN50 M1 PO (07:53)
[2017-10-05] MEDS ORDERED: NAPROXEN500 M2 PO (07:53)
[2017-10-05] MEDS ORDERED: QUETIAPINE FUM100 M1 PO (07:53)
[2017-10-05] MEDS ORDERED: METHADONE HCL10 M1 PO (07:53)
[2017-10-05] MEDS ORDERED: ASPIRIN325 M2 PO (07:53)
[2017-10-05] MEDS ORDERED: CLONIDINE HCL0.1 MG PO (07:53)
[2017-10-05] MEDS ORDERED: GABAPENTIN300 M2 PO (07:53)
--- NOTE | 2017-10-05 07:57 | Patient Discharge Instructions ---
Psych Discharge Inst General Discharge Information Reason for Admission: thoughts of suicide Psy Discharge Primary Diag+ Leo Neurocognitive DO Psy Discharge Secondary Diag+ Opioid Use Disorder Summary Tests/Major Procedures Lab Cholesterol 128 MG/DL 05/31/172108 Cholesterol/HDL Ratio 3 % 05/31/172108 HDL Cholesterol 45 mg/dL 05/31/172108 Hemoglobin A1c 5.4 % 05/31/172108 LDL Cholesterol, Calc 76 mg/dL 05/31/172108 Triglycerides 36 mg/dL 05/31/172108 Studies Pending at DC: None Patient Instructions Contact Information Your Psychiatrist on [facility] was Mau HOSKINS,Narayan * If you are experiencing an emergency related to this hospitalization, please call [phone] to contact the treating psychiatrist or the psychiatrist-on- call. * To Request a copy of your medical records, please contact the Medical Records Department at [phone]. * To request results of studies pending at the time of discharge, please call [phone]. * Continue your Medications until directed to stop by your Healthcare provider. General Medication Information Please continue to take your new medications and your continued home medications , unless otherwise indicated on your discharge medication list, or unless directed by your MD or COMPOSITION MIXER to stop them. Special Instructions Diet Regular Activity Normal - Tobacco Use Treatment Offered Post DC Medications Offered: Refused Tob Medication Tx Post DC Tobacco Treatment Plan: Refused Tobacco Tx Pgm - EtOH/Drug Use D/O Treatment Offered Post DC Medications Offered: Script Given-See Med List Post DC EtOH/SubAbuse TX Plan: Other SubAbuse/Dual Pgm Metabolic Screening Patient on a neuroleptic(s) . Enter below results for Hemoglobin A1C, and lipid panel if obtained during the last 365 days. BMI: 32.900 Blood Pressure: 125/77 Laboratory Results From [facility] (If applicable): Lab Cholesterol 128 MG/DL 05/31/172108 Cholesterol/HDL Ratio 3 % 05/31/172108 HDL Cholesterol 45 mg/dL 05/31/172108 Hemoglobin A1c 5.4 % 05/31/172108 LDL Cholesterol, Calc 76 mg/dL 05/31/172108 Triglycerides 36 mg/dL 05/31/172108 Advance Directives Does the Patient have Medical Advance Directives No/Refused further info Does Pt have Psychiatric Advance Directives? No/Refused further info Does Patient have a Designated Surrogate Decision Maker: No Information About Psychiatric Advance Directives Provided? Refused Discharge Plan Post Hospital Treatment Plan: [facility]
[2017-10-05 08:08] VITALS: BP 125/77
--- NOTE | 2017-10-05 08:23 | CP SOUTH PROGRESS NOTE PSYCH ---
Psych (Inpt) Progress Note Progress Note Vital Signs: Date Time Temp Pulse B/P 10/05 0726 98.2 60 125/77 10/04 1937 97.4 52 128/70 Mental Status Examination: Bassem was in good spirits and looking forward to discharge. He was alert and oriented to time, place, and person. He was calm and cooperative. He showed normal psychomotor activity, no abnormal behaviors, and denied thinking of suicide. Bassem's speech was normal/not pressured and not slurred, he showed brighter affect today he says his mood is "better". He denied homicidal ideation, denied hallucinations, denied feeling paranoid, there were no delusions, he was coherent/no difficulties with thought organization Med Monitoring: Pt. denied side effects from medications, there was no evidence of sedation and he was steady on his feet. Assessment: Bassem Andrews is a 46-year-old single white man who was admitted because he said he had a plan to shoot self with a gun. He has had similar presentations in the past, and appeared in the ED to be "irritated, depressed, but not psychotic. " Bassem has shown significant improvement in mood and outlook on life. He was ready for discharge yesterday. He has been denying any thoughts of suicide. 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 2) F14.20 Stimulant (cocaine) use disorder, sever 3) Opioid Use d/o on methadone 4) TBI; 5) Hypertension; 5) GERD; 6) Hepatitis C; 6) Chronic back pain Treatment Plan: Discharge to self-care [facility] up with [facility]-Methadone clinic
--- NOTE | 2017-10-05 08:59 | DISCHARGE SUMMARY REPORT-PSYCH ---
Visit Information Visit Dates/Diagnosis' Admission Date: 09/30/17 Discharge Date: 10/05/17 Reason for Admission: thoughts of suicide Psy Discharge Primary Diag: Elo Neurocognitive DO Psy Discharge Secondary Diag: Opioid Use Disorder Hospital Course Significant Lab Findings: Lab Cholesterol 128 MG/DL 05/31/172108 Cholesterol/HDL Ratio 3 % 05/31/172108 HDL Cholesterol 45 mg/dL 05/31/172108 Hemoglobin A1c 5.4 % 05/31/172108 LDL Cholesterol, Calc 76 mg/dL 05/31/172108 Triglycerides 36 mg/dL 05/31/172108 Course Complications: The patient did not have any complications while he was on the inpatient psychiatric unit. Reportedly his knee buckled once and he fell to the floor and he only sustained a scrape to the skin there was no swelling no redness and no pain. Consultations: Patient had a history and physical examination by the coating inspector. Please refer to the patient's electronic health record for the details of the H&P. Allergies: Coded Allergies: carbamazepine (From TEGRETOL) (Intermediate, HIVES 01/12/16) phenytoin (Intermediate, HIVES 01/12/16) sertraline (SUICIDAL THOUGHTS 01/12/16) Hospital Course/TX Response: 10/01/2017: Impression and Plan: 46 year old man with opiate use on methadone (he states for pain only), positive cocaine which he denies using, with plan to shoot self with a gun he states he has access to. He has had similar presentations in the past, and appears overall irritated depressed but not psychotic. He has contingent suicidal thinking and ambivalence about treatment, mostly focused on not having his methadone tapered, which I have explained to him is the protocol with cocaine positive urine. Plan: - continue 5mg taper each morning from 70mg - day team to call methadone program if he in fact stays long enought to have a sufficient taper as not to overdose him, prior to discharge - continue current meds - vpa level was 0, he was unlikely adherent with many of his meds as an outpatient. - he states he has a friend's home to stay with in the meanwhile after discharge - he may put jeffry 3 day letter if methadone taper continues. - groups, milieu, outpatient planning - Include all active medical diagnosis that require tx DSM 5 Diagnosis(es): schizoaffective disorder per history cocaine use disorder 10/02/2017: Treatment Plan: - continue 5mg Methadone taper each morning milieu, groups, medication, education 10/03/2017: Increase quetiapine to 100 mg at bedtime Continue 5mg/day Methadone taper each morning continue Naprosyn 500 mg twice daily 10/04/2017: No changes in the treatment plan. Patient slated for discharge tomorrow. 10/05/2017: Vital Signs: Date Time Temp Pulse B/P 10/05 0726 98.2 60 125/77 Mental Status Examination: Bassem was in good spirits and looking forward to discharge. He was alert and oriented to time, place, and person. He was calm and cooperative. He showed normal psychomotor activity, no abnormal behaviors, and denied thinking of suicide. Bassem's speech was normal/not pressured and not slurred, he showed brighter affect, he says his mood is "better". He denied homicidal ideation, denied hallucinations, denied feeling paranoid, there were no delusions, he was coherent/no difficulties with thought organization Med Monitoring: Pt. denied side effects from medications, there was no evidence of sedation and he was steady on his feet. Assessment: Bassem Andrews is a 46-year-old single white man who was admitted because he said he had a plan to shoot self with a gun. He has had similar presentations in the past, and appeared in the ED to be "irritated, depressed, but not psychotic. " Bassem has shown significant improvement in mood and outlook on life. He was ready for discharge yesterday. He has been denying any thoughts of suicide. 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 2) F14.20 Stimulant (cocaine) use disorder, sever 3) Opioid Use d/o on methadone 4) TBI; 5) Hypertension; 5) GERD; 6) Hepatitis C; 6) Chronic back pain Treatment Plan: Discharge to self-care Folow up with APT-Methadone clinic Discharge HBIPS - Tobacco Use Treatment Offered Post DC Medications Offered: Refused Tob Medication Tx Post DC Tobacco Treatment Plan: Refused Tobacco Tx Pgm - EtOH/Drug Use D/O Treatment Offered Post DC Medications Offered: Script Given-See Med List Post DC EtOH/SubAbuse TX Plan: Other SubAbuse/Dual Pgm Metabolic Screening - Screen if on a Neuroleptic Medication - Metabolic screening should include: - Blood Pressure, BMI, Glucose or Hgb A1c, & a - Lipid profile from within the past 365 days. Metabolic Screening Patient on a neuroleptic(s) . Enter below results for Hemoglobin A1C, and lipid panel if obtained during the last 365 days. BMI: 32.900 Blood Pressure: 125/77 Laboratory Results From [facility] (If applicable): Lab Cholesterol 128 MG/DL 05/31/172108 Cholesterol/HDL Ratio 3 % 05/31/172108 HDL Cholesterol 45 mg/dL 05/31/172108 Hemoglobin A1c 5.4 % 05/31/172108 LDL Cholesterol, Calc 76 mg/dL 05/31/172108 Triglycerides 36 mg/dL 05/31/172108 Discharge Instructions General Discharge Information Multiple Neuroleptics: Not Applicable Discharge Diet Regular Discharge Activity Normal DC Disposition: self-care Referrals Ordered Referrals Provider Referral 10/06/17 For Providers: [[facility]] [address] [phone] Patient may present to the clinic between 5am and 2pm on 10/06/17. Provider Referral 10/09/17 For Providers: [facility]] [facility] [address] [place] [address] , ext [phone] Intake appointment: 10/09/17, at 1:30pm with Morales Rivera LMSW Patient will be provided with a medication appointment when he attends the intake on 10/09/17. Provider Referral 10/18/17 For Providers: [[facility]] For Groups: [[facility]] [facility] [address] [phone] Group meets every other Monday at 4pm Next group: 10/18/17, at 4pm Prescriptions Stop taking the following medications: Methadone Hydrochloride (Methadone HCl) 10 MG TABLET ORAL DAILY Nicotine (Nicorelief) 2 MG GUM ORAL EVERY 2 HOURS NEEDED as needed for nicotine craving Qty = 100 Olanzapine (Olanzapine) 15 MG TABLET ORAL Every night Qty = 14 Amlodipine Besylate (Amlodipine Besylate) 5 MG TABLET ORAL DAILY Qty = 14 Ibuprofen (Ibuprofen) 600 MG TABLET ORAL THREE TIMES DAILY as needed for pain Qty = 42 Mirtazapine (Remeron) 15 MG TABLET ORAL AT BEDTIME Qty = 14 Multivitamin (Multi-Vitamin Daily) 1 EACH TABLET ORAL DAILY Qty = 14 Clonazepam (Clonazepam) 2 MG TABLET ORAL TWICE DAILY Continue taking these medications: Clonidine HCl (Clonidine HCl) 0.1 MG TABLET 1 Tablet ORAL DAILY Qty = 14 Comments: Last Taken:10/04/17 Time:8A/ This prescription has been renewed Atenolol (Tenormin) 50 MG TABLET 1 Tablet ORAL DAILY Qty = 14 Comments: Last Taken:10/05/17 Time:8AM This prescription has been renewed Aspirin (Aspirin*) 325 MG TABLET 1 Tablet ORAL DAILY Qty = 14 Comments: Last Taken:10/05/17 Time:8AM This prescription has been renewed Divalproex Sodium (Divalproex Sodium) 500 MG TABLET.DR 1 Tablet ORAL TWICE DAILY Qty = 28 Comments: Last Taken:10/05/17 Time:8AM This prescription has been renewed Gabapentin (Gabapentin) 300 MG CAPSULE 1 Capsule ORAL TWICE DAILY Qty = 28 Comments: Last Taken:10/05/17 Time:8AM This prescription has been renewed Trazodone HCl (Trazodone HCl) 150 MG TABLET 1 Tablet ORAL AT BEDTIME Qty = 14 Comments: Last Taken:10/04/17 Time:9PM This prescription has been renewed Start taking the following new medications: Naproxen (Naproxen) 500 MG TABLET 500 Milligram ORAL TWICE DAILY Qty = 30 No Refills Methadone Hydrochloride (Methadone HCl) 10 MG TABLET 55 Milligram ORAL 0600 Qty = 1 No Refills Comments: Last Taken:10/05/17 Time:6AM Clonazepam (Klonopin) 0.5 MG TABLET 0.5 Milligram ORAL TWICE DAILY Qty = 30 No Refills Comments: Last Taken:10/05/17 Time:8AM Quetiapine Fumarate (Quetiapine Fumarate) 100 MG TABLET 100 Milligram ORAL AT BEDTIME Qty = 14 No Refills Comments: Last Taken:10/04/17 Time:9PM Studies Pending at Discharge None Copies To: [facility]
--- NOTE | 2017-10-05 10:27 | SOCIAL WORKER PROG NOTE PSYCH ---
See Addendum Social Work Progress Note Progress Note This medical technical writer met with patient. He denied SI/HI/hallucinations and stated that he did not have any access to weapons or guns. He stated that, despite what was reported in crisis prior to [facility] admission, he does not have a gun. He plans to return to the emergency prison on [facility] in [place] today and will utilize public transportation. He stated that he has bus fare. Patient refused to do a CAN assessment. We reviewed the safety plan he identified yesterday and also accepted the crisis numbers and warm lines upon discharge. Patient accepted the following appointments: - [facility]: he will utilize the walk in hours tomorrow between 5am and 2pm for Methadone. This medical technical writer spoke with Marsha Montoya LPN at the [facility] informing of patient's discharge today and to obtain the walk in hours -[facility]: intake appointment on 10/09/17 at 1:30pm with Morales Rivera LMSW. This medical technical writer spoke with Michelle to schedule the appointment who stated that he had missed two previous intake appointments. This medical technical writer discussed with patient who stated that he would not have any difficulties attending the intake on 10/09/17. Michelle also stated that he may not have a medication appointment for up to 3 weeks. Patient and this medical technical writer discussed with Dr. León who stated that if patient will run out of medications before the med appointment, then he can contact Dr. León. This was relayed to Michelle at [facility] who stated that the patient will be informed of the medication appointment when he attends the 10/09/17 intake. -Patient was also provided with the information for the smoking cessation program. Faxed Referral(s) 1 Referred To: [facility] Transition of Care Documents sent: Health Summary Faxed to: [facility] Fax #: [phone] Faxed by: Juliana RAIW Date faxed: 10/05/17 Time Faxed: [phone] Faxed Referral(s) 2 Referred To: [facility] Transition of Care Documents sent: Health Summary Faxed to: [facility] Fax #: [phone] Faxed by: Juliana Reed LIBRARY SALES CONSULTANT Date faxed: 10/05/17 Time Faxed: [phone]
== END 2017-10-05 10:23 | DRG 757 ==
LOC: ERH 20:21 → CP SOUTH 09-30 16:10 → ERHI 09-30 16:10 → ENTRNSPT 09-30 17:14 → EDTRNSPTSTS 09-30 17:16 → CP SOUTH 09-30 17:25 → CMPTRNSPT 09-30 17:26 → CP SOUTH 10-02 09:09
PROVIDERS: Emergency Medicine
DX: F01.50 Vascular dementia, unspecified severity, without behavioral disturbance, psychotic disturbance, mood disturbance, and anxiety (principal); F31.9 Bipolar disorder, unspecified; F11.90 Opioid use, unspecified, uncomplicated; F41.9 Anxiety disorder, unspecified; Z87.820 Personal history of traumatic brain injury; B18.2 Chronic viral hepatitis C; K21.9 Gastro-esophageal reflux disease without esophagitis; I10 Essential (primary) hypertension; Z87.891 Personal history of nicotine dependence
CPT/HCPCS: 80307; 96372; G0463; G0480; J1200; J1630; J3101

== ENCOUNTER 2017-10-31 17:02 | Inpatient (IN) | payer OTHER ==
[~2017-10-31] VITALS: Ht 185.4 cm; Wt 104.3 kg
[~2017-10-31 17:02] MED LIST changes: +NAPROXEN500 M2 PO; +QUETIAPINE FUM100 M1 PO
[2017-10-31 19:11] LABS: ABSOLUTE BASOPHIL COUNT 0 /CUMM (0.0-0.2); ABSOLUTE EOSINOPHIL COUNT 0 /CUMM (0.0-0.7); ABSOLUTE GRANULOCYTE CT 4.2 /CUMM (1.4-6.5); ABSOLUTE LYMPH COUNT 1.1 /CUMM (1.2-3.4); ABSOLUTE MONOCYTE COUNT 0.4 /CUMM (0.10-0.60); BASOPHIL % 0.3 % (0.0-2.0); EOSINOPHIL % 0.3 % (0-5); GRANULOCYTE % 73.4 % (42.2-75.2); MEAN CORPUSCULAR HGB 29.8 PG (27.0-31.0); MEAN CORPUSCULAR HGB CONC 33.6 G/DL (33.0-37.0); MEAN CORPUSCULAR VOLUME 88.7 FL (80.0-94.0); MEAN PLATELET VOLUME 8.2 FL (7.4-10.4); PLATELET COUNT 259 /CUMM (130-400); RBC DISTRIBUTION WIDTH 13.5 % (11.5-14.5); RED BLOOD CELL CT 4.96 /CUMM (4.70-6.10); WHITE BLOOD CELL COUNT 5.8 /CUMM (4.8-10.8)
--- NOTE | 2017-10-31 23:21 | ED GENERAL PEDIATRIC ---
See Addendum History of Present Illness General Chief Complaint: Psychiatric Related Complaint Stated Complaint: "I NEED TO TALK TO SOMEONE ABOUT BEING DEPRESSED." Source: patient Exam Limitations: no limitations Allergies Coded Allergies: carbamazepine (From TEGRETOL) (Intermediate, HIVES 10/31/17) phenytoin (Intermediate, HIVES 10/31/17) sertraline (SUICIDAL THOUGHTS 10/31/17) Reconcile Medications Aspirin (Aspirin*) 325 MG TABLET 1 TAB PO DAILY heart health Atenolol (Tenormin) 50 MG TABLET 1 TAB PO DAILY blood pressure Clonazepam (Klonopin) 0.5 MG TABLET 0.5 MG PO BID anxiety Clonidine HCl 0.1 MG TABLET 1 TAB PO DAILY blood pressure Cyclobenzaprine HCl 10 MG TABLET 1 TAB PO BID MUSCLE SPASMS (Reported) Divalproex Sodium 500 MG TABLET.DR 1 TAB PO BID mood stabilizer Gabapentin 300 MG CAPSULE 1 CAP PO BID NERVE PAIN Methadone HCl 10 MG/ML ORAL.CONC 65 MG PO DAILY MAINTENCE (Reported) Naproxen 500 MG TABLET 500 MG PO BID pain Quetiapine Fumarate 100 MG TABLET 100 MG PO AT BEDTIME insomnia Sulfamethoxazole/Trimethoprim (Bactrim Ds Tablet) 800 MG-160 MG TABLET 1 TAB PO BID ANTIBIOTIC, INFECTION (Reported) Trazodone HCl 150 MG TABLET 1 TAB PO AT BEDTIME sleep Triage Note: PT TO ED FOR +SI THOUGHTS WITH PLAN TO USE A FRIENDS FIREARMS TO HURT HIMSELF. PT HAS NOT BEEN MED COMPLIANT. DENIES AH/VH. Triage Nurses Notes Reviewed? yes HPI: 46 yo M with pmhx sig for htn, anxiety, dpression presents to ED with SI. Patien states he wants to harm self, has done so in past. Denies actual attempt today but in triage note mentions he would use friend's firearm. Denies cp/sob/f/ch/castellanos /ap. Denies ingestants. (Severino HOSKINS,Elinor) Vital Signs & Intake/Output Vital Signs & Intake/Output Vital Signs Date Time Temp Pulse Resp B/P B/P Pulse O2 O2 Flow FiO2 Mean Ox Delivery Rate 11/01 2208 91 18 106/54 100 Room Air 11/01 1828 97.7 55 18 95/77 93 Room Air 11/01 1500 98.2 68 18 111/64 99 11/01 1303 98.2 81 18 130/108 11/01 1153 98.2 81 17 130/108 96 Room Air 11/01 0915 98.3 67 18 106/68 95 Room Air 11/01 0659 96.6 78 18 128/73 98 Room Air 11/01 0500 98.0 72 20 140/80 99 Room Air (Rebeca HOSKINS,Ruddy Kelley) Past History Travel History Traveled to [place] past 21 day No Medical History Medical History: as below Neurological: seizure, HEAD INJURY 1995 EENT: NONE Cardiovascular: hypertension Respiratory: NONE Gastrointestinal: GERD Hepatic: hepatitis C Renal: NONE Musculoskeletal: chronic back pain Psychiatric: anxiety, depression, schizo affective disorder, substance abuse Endocrine: NONE Blood Disorders: NONE Cancer(s): NONE 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 No Psychosocial History Who does the child live with? Friend Child's primary language? Slovenian ETOH Use: denies use Illicit Drug Use: denies illicit drug use Family History Family History, If Any: Relation not specified for: *No pertinent family history Hx Contributory? No (Elinor Haq MD) Review of Systems Review of Systems Constitutional: Denies: no symptoms. All Other Systems: Reviewed and Negative (Elinor Haq MD) Physical Exam Physical Exam General Appearance: alert/attentive, no apparent distress Head: normal appearance HEENT: head inspection normal Respiratory: chest non-tender, lungs clear, normal breath sounds, no respiratory distress Cardiovascular: regular rate, rhythm Gastrointestinal: non-tender Neurological/Psychiatric: depressed affect (Elinor Haq MD) Core Measures Sepsis Present: No Sepsis Focused Exam Completed? No (Rebeca HOSKINS,Ruddy Kelley) Progress Differential Diagnosis: psych primary SI, meningitis, encephalitis Comments: Medically cleared. No concerning labs or physical complaints. Home meds given. (Elinor Haq MD) Plan of Care: Orders Procedure Date/time Status Continuous Observation Monitor 11/03 519 Active Continuous Observation Monitor 11/02 012 Active ED CRISIS PSYCH CONSULT 11/02 923 Active Current Medications Sig/Greg Start time Last Medication Dose Stop Time Status Admin Aspirin 325 MG DAILY 11/02 899 UNVr (Aspirin) Atenolol 50 MG DAILY 11/02 899 UNVr (Tenormin) Clonidine 0.1 MG DAILY 11/02 09 UNVr (Catapres) Quetiapine Fumarate 100 MG AT BEDTIME 11/01 2229 UNVr 11/01 (Seroquel) 224 Trazodone HCl 150 MG QPM 11/01 2229 UNVr 11/01 (Desyrel) 224 Divalproex Sodium 500 MG BID 11/01 2225 UNVr 11/01 (Depakote) 2305 Gabapentin 300 MG BID 11/01 2225 UNVr 11/01 (Neurontin) 224 Clonazepam 0.5 MG BID 11/01 2224 UNVr 11/01 (KlonoPIN) 11/08 222 2248 Clonazepam 0.5 MG BID PRN 11/01 1230 UNVr (KlonoPIN) 11/08 1229 Atenolol 50 MG DAILY 11/01 1220 UNVr 11/01 (Tenormin) 1303 Methadone HCl 65 MG QAM 11/01 09 UNVr 11/01 (Dolophine) 0806 Clonazepam 0.5 MG TID PRN 11/01 0700 UNVr 11/01 (KlonoPIN) 11/08 0659 0806 Laboratory Tests 11/01/17 1651: Urine Opiates Screen < 100, Methadone Screen > 735 H, Barbiturate Screen < 60, Ur Phencyclidine Scrn < 6.00, Amphetamines Screen < 100, U Benzodiazepines Scrn 227 H, Urine Cocaine Screen > 100, Urine Cannabis Screen 67.30 H (Rebeca HOSKINS,Ruddy Kelley) Departure Departure Disposition: OTHER PYSCH Condition: Stable Clinical Impression Primary Impression: Suicidal intent Referrals: Julian Mcmahan MD (PCP/Family) Departure Forms: Customer Survey General Discharge Information (Elinor Haq MD) Departure Comments pt to be signed out to dr. baumann 11/01/17, 7am. Resident Co-Sign Statement Statement: ED Attending supervision documentation- [] I saw and evaluated the patient. I have also reviewed all the pertinent lab results and diagnostic results. I agree with the findings and the plan of care as documented in the Resident's documentation. [x] I have reviewed the ED Record and agree with the Resident's documentation. [] Additions or exceptions (if any) to the Resident's note and plan are summarized below: [] (Elaine Ruddy HOSKINS) ED Attending Observation Initial Observation Note: I have seen and personally examined HEATHER DE LA ROSA on 10/31/17 at 2320. I agree with the current emergency department documentation. The disposition (admission or discharge) is uncertain at this time, he needs a period of observation for the following reason(s): Crisis evaluation. Depakote and Seroquel placed for patient The ED Nurse caring for this patient has been personally informed as to what the patient is being observed for. (Elinor Haq MD) (Ruddy Jose MD) ED Attending Observation Initial Observation Note: I have seen and personally examined HEATHER DE LA ROSA on 10/31/17 at 2320. I agree with the current emergency department documentation. The disposition (admission or discharge) is uncertain at this time, he needs a period of observation for the following reason(s): Crisis evaluation. Depakote and Seroquel placed for patient The ED Nurse caring for this patient has been personally informed as to what the patient is being observed for. (Elinor Haq MD)
[2017-11-01] MEDS ORDERED: METHADONE10 MG/1 M2 PO (10:07)
[2017-11-01] MEDS ORDERED: CYCLOBENZAPRINE10 M1 PO (10:08)
[2017-11-01] MEDS ORDERED: BACTRIM DS TAB1 EACH PO (10:14)
--- NOTE | 2017-11-01 12:47 | ED GENERAL ADULT ---
History of Present Illness General Chief Complaint: Psychiatric Related Complaint Stated Complaint: "I NEED TO TALK TO SOMEONE ABOUT BEING DEPRESSED." Exam Limitations: no limitations Allergies Coded Allergies: carbamazepine (From TEGRETOL) (Intermediate, HIVES 10/31/17) phenytoin (Intermediate, HIVES 10/31/17) sertraline (SUICIDAL THOUGHTS 10/31/17) Reconcile Medications Aspirin (Aspirin*) 325 MG TABLET 1 TAB PO DAILY heart health Atenolol (Tenormin) 50 MG TABLET 1 TAB PO DAILY blood pressure Clonazepam (Klonopin) 0.5 MG TABLET 0.5 MG PO BID anxiety Clonidine HCl 0.1 MG TABLET 1 TAB PO DAILY blood pressure Cyclobenzaprine HCl 10 MG TABLET 1 TAB PO BID MUSCLE SPASMS (Reported) Divalproex Sodium 500 MG TABLET.DR 1 TAB PO BID mood stabilizer Gabapentin 300 MG CAPSULE 1 CAP PO BID NERVE PAIN Methadone HCl 10 MG/ML ORAL.CONC 65 MG PO DAILY MAINTENCE (Reported) Naproxen 500 MG TABLET 500 MG PO BID pain Quetiapine Fumarate 100 MG TABLET 100 MG PO AT BEDTIME insomnia Sulfamethoxazole/Trimethoprim (Bactrim Ds Tablet) 800 MG-160 MG TABLET 1 TAB PO BID ANTIBIOTIC, INFECTION (Reported) Trazodone HCl 150 MG TABLET 1 TAB PO AT BEDTIME sleep Triage Note: PT TO ED FOR +SI THOUGHTS WITH PLAN TO USE A FRIENDS FIREARMS TO HURT HIMSELF. PT HAS NOT BEEN MED COMPLIANT. DENIES AH/. Triage Nurses Notes Reviewed? yes HPI: 46 yo M with pmhx sig for htn, anxiety, dpression presents to ED with SI. Patien states he wants to harm self, has done so in past. Denies actual attempt today but in triage note mentions he would use friend's firearm. Denies cp/sob/f/ch/castellanos /ap. Denies ingestants. (Severino HOSKINS,Elinor) Vital Signs & Intake/Output Vital Signs & Intake/Output Vital Signs Date Time Temp Pulse Resp B/P B/P Pulse O2 O2 Flow FiO2 Mean Ox Delivery Rate 11/01 2208 91 18 106/54 100 Room Air 11/01 1828 97.7 55 18 95/77 93 Room Air 11/01 1500 98.2 68 18 111/64 99 11/01 1303 98.2 81 18 130/108 11/01 1153 98.2 81 17 130/108 96 Room Air 11/01 0915 98.3 67 18 106/68 95 Room Air 11/01 0659 96.6 78 18 128/73 98 Room Air 11/01 0500 98.0 72 20 140/80 99 Room Air HPI: Mr Andrews's psychiatrist he sees on a regular basis and is heavily involved in outpatient care is Sarah Otoole. (Valdo HOSKINS,Nando) Past History Travel History Traveled to [place] past 21 day No Medical History Any Pertinent Medical History? 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 No (Elinor Haq MD) Review of Systems Review of Systems Constitutional: Denies: no symptoms. (Elinor Haq MD) Physical Exam Physical Exam General Appearance: no apparent distress Head: atraumatic, normal appearance Respiratory: normal breath sounds, chest non-tender Cardiovascular: regular rate/rhythm Neurologic/Psych: depressed affect Core Measures ACS in differential dx? No CVA/TIA Diagnosis: No Sepsis Present: No Sepsis Focused Exam Completed? No (Elinor Haq MD) Progress Differential Diagnoses I considered the following diagnoses in my evaluation of the patient: meningitis, encephalitis, organic psych (Elinor Haq MD) Plan of Care: Orders Procedure Date/time Status Continuous Observation Monitor 11/03 519 Active Continuous Observation Monitor 11/02 012 Active ED CRISIS PSYCH CONSULT 11/02 923 Active Current Medications Sig/Greg Start time Last Medication Dose Stop Time Status Admin Aspirin 325 MG DAILY 11/02 899 UNVr (Aspirin) Atenolol 50 MG DAILY 11/02 899 UNVr (Tenormin) Clonidine 0.1 MG DAILY 11/02 09 UNVr (Catapres) Quetiapine Fumarate 100 MG AT BEDTIME 11/01 2229 UNVr 11/01 (Seroquel) 224 Trazodone HCl 150 MG QPM 11/01 223 UNVr 11/01 (Desyrel) 224 Divalproex Sodium 500 MG BID 11/01 2225 UNVr 11/01 (Depakote) 2305 Gabapentin 300 MG BID 11/01 2225 UNVr 11/01 (Neurontin) 224 Clonazepam 0.5 MG BID 11/01 2224 UNVr 11/01 (KlonoPIN) 11/08 222 2248 Clonazepam 0.5 MG BID PRN 11/01 1230 UNVr (KlonoPIN) 11/08 1229 Atenolol 50 MG DAILY 11/01 1220 UNVr 11/01 (Tenormin) 1303 Methadone HCl 65 MG QAM 11/01 09 UNVr 11/01 (Dolophine) 0806 Clonazepam 0.5 MG TID PRN 11/01 0700 UNVr 11/01 (KlonoPIN) 11/08 0659 0806 Laboratory Tests 11/01/17 1651: Urine Opiates Screen < 100, Methadone Screen > 735 H, Barbiturate Screen < 60, Ur Phencyclidine Scrn < 6.00, Amphetamines Screen < 100, U Benzodiazepines Scrn 227 H, Urine Cocaine Screen > 100, Urine Cannabis Screen 67.30 H (Valdo HOSKINS,Nando) Departure Departure Disposition: OTHER PYSCH Condition: Stable Clinical Impression Primary Impression: Suicidal intent Referrals: Julian Mcmahan MD (PCP/Family) Departure Forms: Customer Survey General Discharge Information (Elinor Haq MD) ED Attending Observation Observation Re-Evaluation: I have reevaluated HEATHER ANDREWS on 11/01/17 at 1245. The physical findings that support the continued need to observe this patient include . Appears well, walking without issues. Morning meds ordered. Medically cleared for psychiatric treatment (Elinor Haq MD) Departure Disposition: OTHER PYSCH Condition: Stable Clinical Impression Primary Impression: Suicidal intent Referrals: Julian Mcmahan MD (PCP/Family) Departure Forms: Customer Survey General Discharge Information (Elinor Haq MD) ED Attending Observation Observation Re-Evaluation: I have reevaluated HEATHER ANDREWS on 11/01/17 at 1245. The physical findings that support the continued need to observe this patient include . Appears well, walking without issues. Morning meds ordered. Medically cleared for psychiatric treatment (Severino HOSKINS,Elinor)
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
--- NOTE | 2017-11-02 10:46 | ED PSYCHIATRIST/APRN CONSULT ---
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 Case discussed with break up worker. Patient known to me from his prior treatment at [facility]. Patient seen briefly at 10:08 a.m. Feels "not too good." Asking for release. Still feels suicidal. IMPRESSION: Dangerous to self. Admit to [facility] on a PEC.
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
[2017-11-02 12:21] VITALS: BP 109/63
--- NOTE | 2017-11-02 13:14 | History & Physical ---
General Information and HPI MD Statement: I have seen and personally examined HEATHER DE LA ROSA and documented this H&P. The patient is a 46 year old M who presented with a patient stated chief complaint of hallucinations, Depression and SI. Source of Information: patient Exam Limitations: no limitations History of Present Illness: 46 y/o M with pmh sig for anxiety, depression, schizo affective disorder, substance abuse, chronic back pain, hypertension, hepatitis C is admitted to [facility] secondary to having hallucinations. Patient had auditory hallucinations that someone was telling him to hurt himself. Patient said that he had acted upon the hallucinations in the past. Patient is feeling more and more depressed. He had 2 previous attempts for attempting suicide. He is having difficulty sleeping he claims that he was bitten by a spider a few days ago and was prescribed an antibiotic. He would like to continue that antibiotic. He also has chronic back pain and he takes methadone. He denies any urinary problems. He denies any fevers or chills. He denies any nausea vomiting. He does complain of some constipation. Allergies/Medications Allergies: Coded Allergies: carbamazepine (From TEGRETOL) (Intermediate, HIVES 10/31/17) phenytoin (Intermediate, HIVES 10/31/17) sertraline (SUICIDAL THOUGHTS 10/31/17) Home Med list Aspirin (Aspirin*) 325 MG TABLET 1 TAB PO DAILY heart health Atenolol (Tenormin) 50 MG TABLET 1 TAB PO DAILY blood pressure Clonazepam (Klonopin) 0.5 MG TABLET 0.5 MG PO BID anxiety Clonidine HCl 0.1 MG TABLET 1 TAB PO DAILY blood pressure Cyclobenzaprine HCl 10 MG TABLET 1 TAB PO BID MUSCLE SPASMS (Reported) Divalproex Sodium 500 MG TABLET.DR 1 TAB PO BID mood stabilizer Gabapentin 300 MG CAPSULE 1 CAP PO BID NERVE PAIN Methadone HCl 10 MG/ML ORAL.CONC 65 MG PO DAILY MAINTENANCE (Reported) Quetiapine Fumarate 100 MG TABLET 100 MG PO AT BEDTIME insomnia Sulfamethoxazole/Trimethoprim (Bactrim Ds Tablet) 800 MG-160 MG TABLET 1 TAB PO BID ANTIBIOTIC, INFECTION (Reported) Trazodone HCl 150 MG TABLET 1 TAB PO AT BEDTIME sleep Past History Travel History Traveled to [place] past 21 day No Medical History Neurological: seizure, HEAD INJURY 1995 EENT: NONE Cardiovascular: hypertension Respiratory: NONE Gastrointestinal: GERD Hepatic: hepatitis C Renal: NONE Musculoskeletal: chronic back pain Psychiatric: anxiety, depression, schizo affective disorder, substance abuse Endocrine: NONE Blood Disorders: NONE Cancer(s): NONE 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 EENTM: Reports: see HPI. Cardiovascular: Reports: see HPI. Respiratory: Reports: see HPI. GI: Reports: see HPI. Genitourinary: Reports: see HPI. Neurological/Psychological: Reports: see HPI. Exam & Diagnostic Data Last 24 Hrs of Vital Signs/I&O Vital Signs Date Time Temp Pulse Resp B/P B/P Pulse O2 O2 Flow FiO2 Mean Ox Delivery Rate 11/02 1221 96.5 56 109/63 11/02 1038 52 20 116/59 94 Room Air 11/02 0900 98.1 64 20 131/72 11/02 0900 98.1 64 20 131/72 11/02 0834 64 20 131/72 95 Room Air 11/02 0634 98.1 51 18 109/62 98 Room Air 11/02 0500 97.6 52 20 138/63 98 Room Air 11/01 2208 91 18 106/54 100 Room Air 11/01 1828 97.7 55 18 95/77 93 Room Air Intake & Output 11/02 1600 11/02 0800 11/02 0000 Intake Total Output Total Balance Patient 230 lb Weight Physical Exam General Appearance Alert, Oriented X3, Cooperative, No Acute Distress Skin There is a healing spider bite at Right LE. HEENT PERRLA Neck Supple Cardiovascular Regular Rate, Normal S1, Normal S2 Lungs Clear to Auscultation Abdomen Normal Bowel Sounds, Soft, No Tenderness Neurological Cranial Nerves II through XII: Intact Extremities No Edema Last 24 Hrs of Labs/Jorge Alberto: Laboratory Tests 11/01/17 1651: Urine Opiates Screen < 100, Methadone Screen > 735 H, Barbiturate Screen < 60, Ur Phencyclidine Scrn < 6.00, Amphetamines Screen < 100, U Benzodiazepines Scrn 227 H, Urine Cocaine Screen > 100, Urine Cannabis Screen 67.30 H Laboratory Tests 11/01 10/31 1651 1850 Chemistry Sodium (137 - 145 mmol/L) 138 Potassium (3.5 - 5.1 mmol/L) 5.0 Chloride (98 - 107 mmol/L) 97 L Carbon Dioxide (22 - 30 mmol/L) 32 H Anion Gap (5 - 16) 9 BUN (9 - 20 mg/dL) 31 H Creatinine (0.7 - 1.2 mg/dL) 1.1 Estimated GFR (>60 ml/min) > 60 BUN/Creatinine Ratio (7 - 25 %) 28.2 H Glucose (65 - 99 mg/dL) 116 H Calcium (8.4 - 10.2 mg/dL) 9.8 Total Bilirubin (0.2 - 1.3 mg/dL) 1.0 AST (17 - 59 U/L) 43 ALT (21 - 72 U/L) 45 Alkaline Phosphatase (< 127 U/L) 50 Total Protein (6.3 - 8.2 g/dL) 8.4 H Albumin (3.5 - 5.0 g/dL) 4.8 Globulin (1.9 - 4.2 gm/dL) 3.6 Albumin/Globulin Ratio (1.1 - 2.2 %) 1.3 Amylase (30 - 110 U/L) 72 TSH &T3 &Free T4 Intrp (0.27 - 4.20 uIU/mL) 0.600 Hematology CBC w Diff NO MAN DIFF REQ WBC (4.8 - 10.8 /CUMM) 5.8 RBC (4.70 - 6.10 /CUMM) 4.96 Hgb (14.0 - 18.0 G/DL) 14.8 Hct (42 - 52 %) 44.0 MCV (80.0 - 94.0 FL) 88.7 MCH (27.0 - 31.0 PG) 29.8 MCHC (33.0 - 37.0 G/DL) 33.6 RDW (11.5 - 14.5 %) 13.5 Plt Count (130 - 400 /CUMM) 259 MPV (7.4 - 10.4 FL) 8.2 Gran % (42.2 - 75.2 %) 73.4 Lymphocytes % (20.5 - 51.1 %) 18.6 L Monocytes % (1.7 - 9.3 %) 7.4 Eosinophils % (0 - 5 %) 0.3 Basophils % (0.0 - 2.0 %) 0.3 Absolute Granulocytes (1.4 - 6.5 /CUMM) 4.2 Absolute Lymphocytes (1.2 - 3.4 /CUMM) 1.1 L Absolute Monocytes (0.10 - 0.60 /CUMM) 0.4 Absolute Eosinophils (0.0 - 0.7 /CUMM) 0 Absolute Basophils (0.0 - 0.2 /CUMM) 0 Toxicology Salicylates (0 - 20.0 mg/dL) < 1.0 Urine Opiates Screen (>2000 NG/ML) < 100 Methadone Screen (>300 NG/ML) > 735 H Acetaminophen (10.0 - 30.0 ug/mL) < 10.0 L Barbiturate Screen (>200 NG/ML) < 60 Valproic Acid (50 - 120 ug/mL) < 10.0 L Ur Phencyclidine Scrn (>25 NG/ML) < 6.00 Amphetamines Screen (>1000 NG/ML) < 100 U Benzodiazepines Scrn (>200 NG/ML) 227 H Urine Cocaine Screen (>300 NG/ML) > 100 Urine Cannabis Screen (>50 NG/ML) 67.30 H Assessment/Plan Assessment: 46 y/o M with pmh sig for anxiety, depression, schizo affective disorder, substance abuse, chronic back pain, hypertension, hepatitis C is admitted to [facility] secondary to having hallucinations. Patient was depressed and had suicidal ideation after those auditory hallucinations. Patient also claims that he was bit by a spider recently and developed infection. He was prescribed antibiotic. Looking at the medication reconciliation I see that he was on Bactrim. I will continue Bactrim. I have told patient's RN once complete the medication reconciliation to find out about if there was any other antibiotic. I see the patient was also started on methadone taper by psychiatry. Further psych management would go to the psychiatrist. His vital signs are stable and I have reviewed his blood work. As Ranked By This Provider Problem List: 1. Suicidal ideation 2. Bipolar 1 disorder 3. Depression 4. Methadone dependence 5. Auditory hallucination 6. Cellulitis Miscellaneous Miscellaneous Documentation Attending Case Discussed With: Margarita Reagan MD Primary Care Physician: Said MD,Anace Patient sees these Specialists Unknown Level of Patient Care: MONCHO Robison
--- NOTE | 2017-11-02 15:50 | SOCIAL WORKER PROG NOTE PSYCH ---
Social Work Progress Note Progress Note Psychiatric CHW Note Met with pt to go over d/c plan and rehab options. Pt signed releases for [facility] and [facility]. Referrals will be faxed 11.03.17 as the social is not yet available. Enma Palmer" Jose Antonio Psychiatric CHW
[2017-11-02 21:02] VITALS: BP 129/64
[2017-11-03 06:43] VITALS: BP 139/79
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
--- NOTE | 2017-11-03 10:52 | SOCIAL WORKER PROG NOTE PSYCH ---
Social Work Progress Note Progress Note I Harshal Mishra ([facility] [employer]er ) along with psychiatrist Dr. Parada met with Bassem this morning.The patient refused to sign any releases. He stated that he felt depressed and rated his sadness as a seven out of ten with ten being severe. On the same scale he rated his anxiety as a seven out of ten. He reported that " he has been depressed and had bad thoughts for a week". The patient states that he hears voices. When triggers to the patient's depression were inquired about patient stated "I have no Idea" then proceed to say that his depression occurs when the weather changes. The patient mentioned that he ran out of Post[place] three weeks ago. When asked about substance or alcohol use the patient denied. The patient was then questioned about his marijuana and use of benodiazepams he stated " I was was given a medical marijuana card from a doctor in [facility] and he benodiazepams were prescribed by [facility]." He reported using Marijuana once a week but did not say the amount used. He is not happy about being in the hospital especially because his methadone was tapered down. He reported that he had five suicide attempts in the past. The patient could not identify a personal strength today. He reports being suicidal today and feeling worthless. He mentioned that his appetite is currently poor. A letter was sent to the [place] [address] informing them of the dates of the patient's hospitalization because he could not be present in court today.
--- NOTE | 2017-11-03 15:43 | CPS PROVIDER INIT ASMT PSYCH ---
Psychiatric Admission Director Experimental Medicine's Note Reviewed: Yes Patient Seen and Examined: Yes (Seen with SW policy intern & PA stdnt) Identifying Information: 46-year-old single white male admitted on 11/02/17 on a PEC from [facility] emergency room. Chief Complaint: Suicidal ideation to get friends' rifle and shoot himself. Complains of hearing voices. Reaction to Hospitalization: "I feel fine" but states he does not understand why there is a methadone taper. History of Present Illness Onset of Illness: Reports feeling very depressed and having bad thoughts for about 1 week. Complains of hearing voices. Circumstances Leading to Admission: Suicidal ideation and auditory hallucinations in the context of drug screen positive for cannabis and benzodiazepines. Patient apparently ran out of Depakote. Problem(s) Justifying Need for Admission: Suicidal ideation. Auditory hallucinations. Other HPI: Patient reports that he goes through depression when the weather changes, seasonal depression. Reports he has been taking most of his medications but ran out of Depakote about a week ago. Reports he is on medical marijuana. Reports he has been prescribed benzodiazepines from [facility]. Refused to sign release of information for [facility] and for Dr. Moscoso. Reports sleep is okay. Reports appetite is not that good. Reports energy is low. Case and treatment plan discussed in team meeting. Staff reports that the patient is denying suicidal ideation. Described as cooperative and quiet. Noted to have a spider bite on his right calf. Was scheduled for court today. Past Psychiatric History Past Diagnosis(es)- if any: Psy Discharge Primary Diag: Leo Neurocognitive DO Psy Discharge Secondary Diag: Opioid Use Disorder Past Precipitating Factors- if any: Typically subtance use. - Include inpatient and outpatient treatment Treatment History: The patient reports history of PTSD, bipolar disorder, schizoaffective disorder. Goes for methadone at [facility] and also sees Dr. Moscoso. No longer sees Dr. Carrion. Reports he was hospitalized multiple times in the past, including [facility] last month. History of Suicide Attempts or Gestures Reports a history of about 5 suicide attempts. Substance Abuse History: Tobacco: Denied. Alcohol: Denied. Marijuana: "Maybe a little bit once a week for anxiety." Cocaine: Last use 1-2 months ago. On methadone maintenance. Allergies: Coded Allergies: carbamazepine (From TEGRETOL) (Intermediate, HIVES 10/31/17) phenytoin (Intermediate, HIVES 10/31/17) sertraline (SUICIDAL THOUGHTS 10/31/17) Home Med List: Aspirin (Aspirin*) 325 MG TABLET 1 TAB PO DAILY heart health #14 TAB Prescribed by Narayan León MD on 10/05/17 Atenolol (Tenormin) 50 MG TABLET 1 TAB PO DAILY blood pressure #14 TAB Prescribed by Narayan León MD on 10/05/17 Clonazepam (Klonopin) 0.5 MG TABLET 0.5 MG PO BID anxiety #30 TAB Prescribed by Narayan León MD on 10/05/17 Clonidine HCl 0.1 MG TABLET 1 TAB PO DAILY blood pressure #14 TAB Prescribed by Narayan León MD on 10/05/17 Cyclobenzaprine HCl 10 MG TABLET 1 TAB PO BID MUSCLE SPASMS (Reported) Entered as Reported by Andrew Wong on 11/01/17 1008 Divalproex Sodium 500 MG TABLET.DR 1 TAB PO BID mood stabilizer #28 TAB Prescribed by Narayan León MD on 10/05/17 Gabapentin 300 MG CAPSULE 1 CAP PO BID NERVE PAIN #28 CAP Prescribed by Narayan León MD on 10/05/17 Methadone HCl 10 MG/ML ORAL.CONC 65 MG PO DAILY MAINTENCE (Reported) Entered as Reported by Andrew Wong on 11/01/17 1007 Naproxen 500 MG TABLET 500 MG PO BID pain #30 TAB Prescribed by Narayan León MD on 10/05/17 Quetiapine Fumarate 100 MG TABLET 100 MG PO AT BEDTIME insomnia #14 TAB Prescribed by Narayan León MD on 10/05/17 Sulfamethoxazole/Trimethoprim (Bactrim Ds Tablet) 800 MG-160 MG TABLET 1 TAB PO BID ANTIBIOTIC, INFECTION (Reported) Entered as Reported by Andrew Wogn on 11/01/17 1014 Trazodone HCl 150 MG TABLET 1 TAB PO AT BEDTIME sleep #14 TAB Prescribed by Narayan León MD on 10/05/17 - Include any medical condition(s) that may - impact the patient's recovery/remission Past Medical History: Back problems, Hep C, TBI. Reports he hasn't had a seizure in 5 years. Past History Medical History Neurological: seizure, HEAD INJURY 1996 EENT: NONE Cardiovascular: hypertension Respiratory: NONE Gastrointestinal: GERD Hepatic: hepatitis C Renal: NONE Musculoskeletal: chronic back pain Psychiatric: anxiety, depression, schizo affective disorder, substance abuse Endocrine: NONE Blood Disorders: NONE Cancer(s): NONE INSTALLER/Reproductive: NONE History of MRSA: No History of VRE: No History of CDIFF: No Isolation History: Standard Influenza Vaccine: 11/13/16 Surgical History Surgical History: none Psychiatric Family/Social Hx Family History Psychiatric Illness: Denied. Substance Use: Denied. Suicides: Denied. Social History Living Situation: Lives in [place] with a roommate. Significant Relationships (family/friends): Mother lives in [place]. Father is . Has 1 brother, who lives out of state. Education: HS graduate. Vocation/Occupation: Reports his family helps to support him. Legal: Court date today in [place] for blank [place]. Healthly Behaviors Screening Tobacco Screening Tobacco Use from ED Docu: Quit <30 days ago - If tobacco counseling indicated - the following topics are required. - #1 Recognizing dangerous situations. - #2 Coping Skills. - #3 Basic information about quitting. Status of Tobacco Cessation Counseling: #1, #2 AND #3 Completed Cessation Med Status Nicotine Gum Ordered Alcohol Screening - ETOH screen POS if BAL >=80 or Audit-C>= M4/F3 Audit-C Score from Diag Assess: 0 Alcohol Use Screening Results: Neg per Audit C &/or BAL - If ETOH counseling indicated - the following topics are required. - #1 Express concern about the patient's - drinking at unhealthy levels, include informing - of national norms for moderate drinking: - men <= 14 drinks/week, max 4 drinks/occasion - women <= 7 drinks/week, max 3 drinks/occasion - #2 Providing feedback, including linking alcohol to - negative physical effects (liver injury, hypertension) - negative emotional effects (relationship problems and - depression) - negative occupational consequences (reduced work - performance) - #3 Advising the patient to abstain from alcohol or - to drink below national norms for moderate drinking - (as listed above). Status of ETOH Use Counseling: N/A B/C NO ETOH Use Metabolic Screening - Screen if on a Neuroleptic Medication - Metabolic screening should include: - Blood Pressure, BMI, Glucose or Hgb A1c, & a - Lipid profile from within the past 365 days. Metabolic Screening () Not Applicable, patient not on a neuroleptic. OR () Patient on a neuroleptic(s) . Enter below results for Hemoglobin A1C, and lipid panel if obtained during the last 365 days. BMI: 30.300 Blood Pressure: 139/[address] [facility] (If applicable): [x] Lab Cholesterol 128 MG/DL 05/31/172108 Cholesterol/HDL Ratio 3 % 05/31/172108 HDL Cholesterol 45 mg/dL 05/31/172108 Hemoglobin A1c 5.4 % 05/31/172108 LDL Cholesterol, Calc 76 mg/dL 05/31/172108 Triglycerides 36 mg/dL 05/31/172108 Exam and Plan Mental Status Examination Ambulation Status: Gait intact. Appearance: WM in NAD. Attitude towards examiner: Calm, polite and cooperative. Psychomotor activity: Mildly slowed. Behavior: Unremarkable. Quality of speech: Normal in volume, rate and tone. Affect: Depressed and irritable. Mood: "I feel down/depressed." Sad 10. Anxiety 08/22. Denies feeling hopeless or helpless. Feels worthless and guilty. Suicidal Ideation: Reports SI. Homicidal Ideation: Denies HI. Hallucinations: Reports AHs of father's voice in the background, can't make out the content. Denies VH. Paranoid/Delusional Material: Denies PI and magical omer. Difficulties with thought organization: None. Insight: Poor. Judgment: Poor. Orientation: Ox3. Cognition: Grossly intact and at usual baseline. Memory Function: Grossly intact. Estimate of intellectual functioning: Below average. Assets/Strengths Patient Identified Assets/Strengths: "Right now, none." Impression/Plan Impression and Plan: The patient is here in the context of being off Depakote, using MJ and benzos, chronic mental illness and court date. - Include all active medical diagnosis that require tx DSM 5 Diagnosis(es): Schizoaffective disorder, bipolar type Opiate use d/o on MMP Cannabis use disorder Hx TBI Hx hypertension Hx GERD Hepatitis C Chronic back pain - Initial Tx Plan for Active Psych & Medical Conditions Treatment Plan: The patient will be monitored on the unit for safety, psychosis and mood disorder. He has been continued on home medications (Depakote was restarted). - Factors that would help patient function - in a less restrictive setting. Factors: Not suicidal. Improvement in or resolution of AHs.
[2017-11-03 19:31] VITALS: BP 111/52; BP 133/73
[2017-11-04 08:03] VITALS: BP 153/89
--- NOTE | 2017-11-04 19:43 | CP SOUTH PROGRESS NOTE PSYCH ---
Psych (Inpt) Progress Note Progress Note Include the following elements, when applicable: Involvement in the active treatment of the patient with behavioral observations of the patient and the patient's response to the treatment. Review of the ongoing treatment process in the context of the treatment plan. Indication of how multi-disciplinary staff members are carrying out the treatment plan. Plans for future interventions and recommendations for revision of the treatment plan. Liaison with other physicians/providers. Progress Note: Patient is a 46 years old white male individual who appears to be a well-built and reports of having issues with his methadone taper and prefers to have the tomorrow's dose in the morning at 6 AM his left 9 AM Sixto is long-acting half life however he reports of working through his issues and wants to cooperate with the treatment team about his medications and ongoing issues in the community he denies of any active thoughts to hurt himself but is vague in his communications and is alert and oriented to time place and person. Diagnostic impression Polysubstance dependence Schizoaffective disorder bipolar type PTSD he has a card for marijuana Treatment recommendations continue the current medications as recommended by the team concurred with the treatment plans to stabilize the patient and discharge him with follow-up care in the community when stable Dictated by Dr. Jiang, thank you
[2017-11-04 20:30] VITALS: BP 123/59
[2017-11-05 07:34] VITALS: BP 126/67
--- NOTE | 2017-11-05 15:28 | CP SOUTH PROGRESS NOTE PSYCH ---
Psych (Inpt) Progress Note Progress Note Include the following elements, when applicable: Involvement in the active treatment of the patient with behavioral observations of the patient and the patient's response to the treatment. Review of the ongoing treatment process in the context of the treatment plan. Indication of how multi-disciplinary staff members are carrying out the treatment plan. Plans for future interventions and recommendations for revision of the treatment plan. Liaison with other physicians/providers. Progress Note: 46 years old white male individual was seen on the unit this afternoon he was trying to take a nap and expressed his thanks for getting his methadone in the morning earlier and has no complaints about his medications today he was active in the daytime 100 parts per medicine milieu activities. He has no active problems and is aware of the team's recommendations about his medications and tapering his methadone dose he denies of any intrusive thoughts are any thoughts to hurt himself or others is alert and oriented to time place and person and is willing to cooperate with his treatment aftercare recommendations once stable by the team Diagnostic impression Schizoaffective disorder bipolar type PTSD has been marijuana card and uses marijuana , while in the community Opiate use disorder on methadone tapering dose by the team Dictated by Dr. Jiang,and concur with the current team's recommendations for his medication adjustments and work towards his discharge and follow-up care in the community
[2017-11-05 20:01] VITALS: BP 117/62
[2017-11-06 07:56] VITALS: BP 113/69
[2017-11-06] MEDS ORDERED: METHADONE HCL10 M1 PO (10:56)
[2017-11-06] MEDS ORDERED: TENORMIN50 M1 PO (10:56)
[2017-11-06] MEDS ORDERED: ONE DAILY MULT1 EAC2 PO (10:56)
[2017-11-06] MEDS ORDERED: DOCUSATE SODIU100 M3 PO (10:56)
[2017-11-06] MEDS ORDERED: NICOTINE PATCH1 EAC2 TOP (10:56)
[2017-11-06] MEDS ORDERED: SENNA8.6 M3 PO (10:56)
[2017-11-06] MEDS ORDERED: QUETIAPINE FUM100 M1 PO (10:56)
[2017-11-06] MEDS ORDERED: GABAPENTIN300 M2 PO ×2 (10:56→10:58)
[2017-11-06] MEDS ORDERED: DIVALPROEX SOD500 M2 PO ×2 (10:56→10:58)
[2017-11-06] MEDS ORDERED: ASPIRIN325 M2 PO (10:56)
[2017-11-06] MEDS ORDERED: TRAZODONE HCL150 M1 PO ×2 (10:56→10:58)
[2017-11-06] MEDS ORDERED: CLONIDINE HCL0.1 MG PO ×2 (10:56→10:59)
[2017-11-06 11:23] VITALS: BP 113/69
--- NOTE | 2017-11-06 11:54 | Patient Discharge Instructions ---
Psych Discharge Inst General Discharge Information Reason for Admission: Suicidal ideation, hearing voices. Was off of Depakote. Psy Discharge Primary Diag+ Schizoaffective d/o, bipolar type Psy Discharge Secondary Diag+ Opioid use d/o on MMP Cannabis use d/o Hx TBI Hx hypertension Hx GERD Hepatitis C Chronic back pain Reported recent spider bite Summary Tests/Major Procedures Lab ALT 45 U/L 10/31/17 185 AST 43 U/L 10/31/17 185 Amylase 72 U/L 10/31/17 185 BUN 31 mg/dL H 10/31/17 185 BUN/Creatinine Ratio 28.2 % H 10/31/17 185 Calcium 9.8 mg/dL 10/31/17 185 Carbon Dioxide 32 mmol/L H 10/31/17 1850 Chloride 97 mmol/L L 10/31/17 185 Creatinine 1.1 mg/dL 10/31/171849 Estimated GFR > 60 ml/min 10/31/17 185 Glucose 116 mg/dL H 10/31/17 185 Potassium 5.0 mmol/L 10/31/17 1850 Sodium 138 mmol/L 10/31/17 185 TSH &T3 &Free T4 Intrp 0.600 uIU/mL 10/31/17 185 Total Protein 8.4 g/dL H 10/31/17 1850 Absolute Lymphocytes 1.1 /CUMM L 10/31/17 1850 Hct 44.0 % 10/31/17 1850 Hgb 14.8 G/DL 10/31/17 1850 Lymphocytes % 18.6 % L 10/31/17 1850 Plt Count 259 /CUMM 10/31/17 1850 WBC 5.8 /CUMM 10/31/17 1850 Methadone Screen > 735 NG/ML H 11/01/17 1651 Serum Alcohol < 10.0 MG/DL 10/31/17 1850 U Benzodiazepines Scrn 227 NG/ML H 11/01/17 1651 Urine Cannabis Screen 67.30 NG/ML H 11/01/17 1651 Valproic Acid < 10.0 ug/mL L 10/31/17 1850 Valproic Acid 60.0 ug/mL 11/05/17 0625 Lab Cholesterol 128 MG/DL 05/31/172108 Cholesterol/HDL Ratio 3 % 04/18/18 2109 HDL Cholesterol 45 mg/dL 05/31/172108 Hemoglobin A1c 5.4 % 05/31/172108 LDL Cholesterol, Calc 76 mg/dL 05/31/172108 Triglycerides 36 mg/dL 05/31/172108 EKG 10/31/17 showed sinus rhythm @ 72, ST elev, probable normal early repol pattern, minor changes since previous tracing, normal ECG, QT 384, QTc 421. Studies Pending at DC: None. Patient Instructions Contact Information Your Psychiatrist on [facility] was Ruddy Parada MD * If you are experiencing an emergency related to this hospitalization, please call [phone] to contact the treating psychiatrist or the psychiatrist-on- call. * To Request a copy of your medical records, please contact the Medical Records Department at [phone]. * To request results of studies pending at the time of discharge, please call [phone]. * Continue your Medications until directed to stop by your Healthcare provider. General Medication Information Please continue to take your new medications and your continued home medications , unless otherwise indicated on your discharge medication list, or unless directed by your MD or [facility] to stop them. Special Instructions Diet Regular Activity Normal Other Inst/Recommendations Stay away from drugs and alcohol. See PCP about EKG, abnormal labs. - Tobacco Use Treatment Offered Post DC Medications Offered: Script Given-See Med List Post DC Tobacco Treatment Plan: Jan Tobacco Tx Pgm Program Appt Date: 11/15/17 Program Appt Time: 1600 - EtOH/Drug Use D/O Treatment Offered Post DC Medications Offered: Script Given-See Med List (On methadone) Post DC EtOH/SubAbuse TX Plan: Other SubAbuse/Dual Pgm ([facility], [facility]) Metabolic Screening () Not Applicable, patient not on a neuroleptic. OR () Patient on a neuroleptic(s) . Enter below results for Hemoglobin A1C, and lipid panel if obtained during the last 365 days. BMI: 30.300 Blood Pressure: 113/69 Laboratory Results From [facility] (If applicable): [x] Lab Cholesterol 128 MG/DL 05/31/172108 Cholesterol/HDL Ratio 3 % 05/31/172108 HDL Cholesterol 45 mg/dL 05/31/172108 Hemoglobin A1c 5.4 % 05/31/172108 LDL Cholesterol, Calc 76 mg/dL 05/31/172108 Triglycerides 36 mg/dL 05/31/172108 Advance Directives Does the Patient have Medical Advance Directives No/Refused further info Does Pt have Psychiatric Advance Directives? No/Refused further info Does Patient have a Designated Surrogate Decision Maker: No Information About Psychiatric Advance Directives Provided? Refused Discharge Plan Post Hospital Treatment Plan: Plans to go to [facility], follow up at [facility] and [facility].
--- NOTE | 2017-11-06 12:15 | SOCIAL WORKER PROG NOTE PSYCH ---
Social Work Progress Note Progress Note Met with Bassem this morning. He had already met with Dr. Parada and was planning to discharge today. He reported that he was looking to leave and just needed a bus pass. Asked where he was going? He said he was going to return to the [facility] in [place]. Asked if he would sign a release for [employer]? He agreed. He will return there tomorrow for his methadone. Asked if he was working with a counselor at [facility] for housing and getting into a more permanant [facility] situation? He said that he was. Reports feeling better. Denies any voices that are disturbing in nature or of concern at this time. Appeared alert and organized. Provided $2.00 in bus money.
--- NOTE | 2017-11-06 14:47 | SOCIAL WORKER PROG NOTE PSYCH ---
Social Work Progress Note Faxed Referral(s) Referred To: [facility] Transition of Care Documents sent: Health Summary Faxed to: [facility] Fax #: [phone] Faxed by: Traci Saldivar Date faxed: 11/06/17 Time Faxed: [phone]
--- NOTE | 2017-11-06 16:20 | CP SOUTH PROGRESS NOTE PSYCH ---
Psych (Inpt) Progress Note Progress Note Include the following elements, when applicable: Involvement in the active treatment of the patient with behavioral observations of the patient and the patient's response to the treatment. Review of the ongoing treatment process in the context of the treatment plan. Indication of how multi-disciplinary staff members are carrying out the treatment plan. Plans for future interventions and recommendations for revision of the treatment plan. Liaison with other physicians/providers. Progress Note: Case and treatment plan discussed in team meeting. Staff reports that the patient is denying suicidal ideation. Does not go to groups. Watches TV. Reporting auditory hallucinations. Patient seen at 10:41 AM. Feels okay. Has no complaints. Affect is calm and blunted to depressed. Reports mood is okay. Rates sad mood and anxiety both 5/ 10. Denies feeling hopeless, helpless, worthless or guilty. Denies active and passive suicidal ideation. Denies homicidal ideation. Reports auditory hallucinations remain but are a little bit better. The hallucinations sound like his father's voice but he really cannot figure out what they are saying and they are like a humming. Denies command auditory hallucinations. Denies visual hallucinations and paranoid ideation. Describes sleep, appetite and energy as okay. Tolerating medications well, without complaint. Feels ready and safe for discharge. Plans to follow up at [facility] and at [facility]. Refuses to sign releases of information. Plans to go to [facility] for housing. IMPRESSION: Condition improved. Okay for discharge today with plan as above.
--- NOTE | 2017-11-06 16:25 | DISCHARGE SUMMARY REPORT-PSYCH ---
Visit Information Visit Dates/Diagnosis' Admission Date: 11/02/17 Discharge Date: 11/06/17 Reason for Admission: Suicidal ideation, hearing voices. Was off of Depakote. Psy Discharge Primary Diag: Schizoaffective d/o, bipolar type Psy Discharge Secondary Diag: Opioid use d/o on MMP Cannabis use d/o Hx TBI Hx hypertension Hx GERD Hepatitis C Chronic back pain Reported recent spider bite Hospital Course Significant Lab Findings: Lab ALT 45 U/L 10/31/17 1850 AST 43 U/L 10/31/17 1850 Amylase 72 U/L 10/31/17 185 BUN 31 mg/dL H 10/31/17 185 BUN/Creatinine Ratio 28.2 % H 10/31/17 185 Calcium 9.8 mg/dL 10/31/17 185 Carbon Dioxide 32 mmol/L H 10/31/17 1850 Chloride 97 mmol/L L 10/31/17 185 Creatinine 1.1 mg/dL 10/31/17 185 Estimated GFR > 60 ml/min 10/31/17 185 Glucose 116 mg/dL H 10/31/17 1850 Potassium 5.0 mmol/L 10/31/17 1850 Sodium 138 mmol/L 10/31/17 1850 TSH &T3 &Free T4 Intrp 0.600 uIU/mL 10/31/17 185 Total Protein 8.4 g/dL H 10/31/17 1850 Absolute Lymphocytes 1.1 /CUMM L 10/31/17 1850 Hct 44.0 % 10/31/17 1850 Hgb 14.8 G/DL 10/31/17 1850 Lymphocytes % 18.6 % L 10/31/17 1850 Plt Count 259 /CUMM 10/31/17 1850 WBC 5.8 /CUMM 10/31/17 1850 Methadone Screen > 735 NG/ML H 11/01/17 1651 Serum Alcohol < 10.0 MG/DL 10/31/17 1850 U Benzodiazepines Scrn 227 NG/ML H 11/01/17 165 Urine Cannabis Screen 67.30 NG/ML H 11/01/17 1651 Valproic Acid < 10.0 ug/mL L 10/31/17 1850 Valproic Acid 60.0 ug/mL 11/05/17 0625 Lab Cholesterol 128 MG/DL 04/18/18 2109 Cholesterol/HDL Ratio 3 % 05/31/172108 HDL Cholesterol 45 mg/dL 05/31/172108 Hemoglobin A1c 5.4 % 05/31/172108 LDL Cholesterol, Calc 76 mg/dL 05/31/172108 Triglycerides 36 mg/dL 05/31/172108 EKG 10/31/17 showed sinus rhythm @ 72, ST elev, probable normal early repol pattern, minor changes since previous tracing, normal ECG, QT 384, QTc 421. Course Complications: None. Consultations: The patient was seen by Dr. Reagan for admission H&P. Per her note of 11/02/17 , "Assessment: 46 y/o M with h sig for anxiety, depression, schizo affective disorder, substance abuse, chronic back pain, hypertension, hepatitis C is admitted to [facility] secondary to having hallucinations. Patient was depressed and had suicidal ideation after those auditory hallucinations. Patient also claims that he was bit by a spider recently and developed infection. He was prescribed antibiotic. Looking at the medication reconciliation I see that he was on Bactrim. I will continue Bactrim. I have told patient's RN once complete the medication reconciliation to find out about if there was any other antibiotic. I see the patient was also started on methadone taper by psychiatry. Further psych management would go to the psychiatrist. His vital signs are stable and I have reviewed his blood work." Allergies: Coded Allergies: carbamazepine (From TEGRETOL) (Intermediate, HIVES 10/31/17) phenytoin (Intermediate, HIVES 10/31/17) sertraline (SUICIDAL THOUGHTS 10/31/17) Hospital Course/TX Response: The patient was monitored on the unit for safety, psychosis and mood disturbance. He refused some groups. Patient was placed on a methadone taper per protocol because of dirty urine on presentation. Usual home medications were otherwise continued. Depakote was restarted. The patient was off Depakote prior to admission. Mood and affect have improved. Suicidal ideation has remitted. Auditory hallucinations have improved. Progress note from date of discharge, 11/06/17: "Case and treatment plan discussed in team meeting. Staff reports that the patient is denying suicidal ideation. Does not go to groups. Watches TV. Reporting auditory hallucinations. Patient seen at 10:41 AM. Feels okay. Has no complaints. Affect is calm and blunted to depressed. Reports mood is okay. Rates sad mood and anxiety both 5/ 10. Denies feeling hopeless, helpless, worthless or guilty. Denies active and passive suicidal ideation. Denies homicidal ideation. Reports auditory hallucinations remain but are a little bit better. The hallucinations sound like his father's voice but he really cannot figure out what they are saying and they are like a humming. Denies command auditory hallucinations. Denies visual hallucinations and paranoid ideation. Describes sleep, appetite and energy as okay. Tolerating medications well, without complaint. Feels ready and safe for discharge. Plans to follow up at [facility] and at [facility]. Refuses to sign releases of information. Plans to go to [facility] for housing. IMPRESSION: Condition improved. Okay for discharge today with plan as above." Discharge HBIPS - Tobacco Use Treatment Offered Post DC Medications Offered: Script Given-See Med List Post DC Tobacco Treatment Plan: [facility] Program Appt Date: 11/15/17 Program Appt Time: 1600 - EtOH/Drug Use D/O Treatment Offered Post DC Medications Offered: Script Given-See Med List (On methadone through APT ) Post DC EtOH/SubAbuse [place] Plan: Other SubAbuse/Dual Pgm ([facility] and [facility]) Program Appt Date: 11/07/17 Program Appt Time: 0900 Metabolic Screening - Screen if on a Neuroleptic Medication - Metabolic screening should include: - Blood Pressure, BMI, Glucose or Hgb A1c, & a - Lipid profile from within the past 365 days. Metabolic Screening () Not Applicable, patient not on a neuroleptic. OR () Patient on a neuroleptic(s) . Enter below results for Hemoglobin A1C, and lipid panel if obtained during the last 365 days. BMI: 30.300 Blood Pressure: 113/69 Laboratory Results From [facility] (If applicable): [x] Lab Cholesterol 128 MG/DL 05/31/172108 Cholesterol/HDL Ratio 3 % 05/31/172108 HDL Cholesterol 45 mg/dL 05/31/172108 Hemoglobin A1c 5.4 % 05/31/172108 LDL Cholesterol, Calc 76 mg/dL 05/31/172108 Triglycerides 36 mg/dL 05/31/172108 Discharge Instructions General Discharge Information Multiple Neuroleptics: ([x]) Not Applicable OR Document below three failed attempts at monotherapy, or a plan to taper to monotherapy, or augmentation of Clozapine. () Discharge Diet Regular Discharge Activity Normal DC Disposition: Plans to go to [facility]. Referrals Ordered Referrals Provider Referral 11/07/17 For Groups: [[facility]] Patient will follow up with [facility] for IOP and methadone maintenance on 11/07/17 Address: [address] [place] [id number] Prescriptions Stop taking the following medications: Methadone HCl (Methadone HCl) 10 MG/ML ORAL.CONC ORAL DAILY Continue taking these medications: Clonazepam (Klonopin) 0.5 MG TABLET 0.5 Milligram ORAL TWICE DAILY Qty = 30 Comments: Last Taken:11/06/17 Time:8am Cyclobenzaprine HCl (Cyclobenzaprine HCl) 10 MG TABLET 1 Tablet ORAL TWICE DAILY Comments: Last Taken:11/06/17 Time:8am Sulfamethoxazole/Trimethoprim (Bactrim Ds Tablet) 800 MG-160 MG TABLET 1 Tablet ORAL TWICE DAILY Comments: Last Taken:11/06/17 Time:8am Atenolol (Tenormin) 50 MG TABLET 1 Tablet ORAL DAILY Qty = 14 Comments: Last Taken:11/06/17 Time:8am This prescription has been renewed Aspirin (Aspirin*) 325 MG TABLET 1 Tablet ORAL DAILY Qty = 14 Comments: Last Taken:11/06/17 Time:8am This prescription has been renewed Trazodone HCl (Trazodone HCl) 150 MG TABLET 1 Tablet ORAL AT BEDTIME Qty = 14 Comments: Last Taken:11/05/17 Time:10pm This prescription has been renewed Gabapentin (Gabapentin) 300 MG CAPSULE 1 Capsule ORAL TWICE DAILY Qty = 28 Comments: Last Taken:11/06/17 Time:8am This prescription has been renewed Divalproex Sodium (Divalproex Sodium) 500 MG TABLET.DR 1 Tablet ORAL TWICE DAILY Qty = 28 Comments: Last Taken:11/06/17 Time:8am This prescription has been renewed Clonidine HCl (Clonidine HCl) 0.1 MG TABLET 1 Tablet ORAL DAILY Qty = 14 Comments: Last Taken:11/06/17 Time:11am This prescription has been renewed Start taking the following new medications: Nicotine (Nicotine Patch) 14 MG/24 HOUR PATCH.TD24 1 Patch On the skin DAILY Qty = 14 No Refills Comments: Last Taken:11/06/17 Time:8am Docusate Sodium (Docusate Sodium) 100 MG CAPSULE 1 Caplet ORAL TWICE DAILY Qty = 28 No Refills Comments: Last Taken:11/06/17 Time:8am Multivitamin (One Daily Multivitamin) 1 EACH TABLET 1 Tablet ORAL DAILY Qty = 14 No Refills Comments: Last Taken:11/06/17 Time:8am Methadone Hydrochloride (Methadone HCl) 10 MG TABLET 4 Tablet ORAL DAILY Qty = 1 No Refills Comments: Last Taken:11/06/17 Time:6am Sennosides (Senna) 8.6 MG TABLET 1 Tablet ORAL DAILY Qty = 14 No Refills Comments: NOT TAKEN IN HOSPITAL The following medications have been changed: Old: Quetiapine Fumarate (Quetiapine Fumarate) 100 MG TABLET 100 Milligram ORAL AT BEDTIME Qty = 14 New: Quetiapine Fumarate (Quetiapine Fumarate) 100 MG TABLET 1 Tablet ORAL AT BEDTIME Qty = 14 Comments: Last Taken:11/05/17 Time:8pm Other Inst/Recommendations Stay away from drugs and alcohol. See PCP about EKG, abnormal labs. Studies Pending at Discharge None. Copies To: -
--- NOTE | 2017-11-06 16:41 | SOCIAL WORKER PROG NOTE PSYCH ---
Social Work Progress Note Progress Note Psychiatric CHW Note Determination Status: DISCHARGE COMPLETED Thank you. You have completed your discharge for this episode of care. Member Name Member ID Member Subscriber Name Subscriber ID HEATHER DE LA ROSA [id number] 1970 HEATHER DE LA ROSA [id number] Related Authorization # Related Client Authorization # Discharge # Discharge Date [id number] 11/06/2017 Level of Service Type of Service Level Of Care Type of Care IP - INPATIENT/HLOC P - MENTAL HEALTH I - INPATIENT CIP - INPATIENT HOSPITAL - INPATIENT HOSPITAL Provider Name & Address Provider ID Provider Alternate ID ELIO BAGLEY [id number] [address] [place] [address] [phone]
--- NOTE | 2017-11-06 17:48 | SOCIAL WORKER PROG NOTE PSYCH ---
Social Work Progress Note Progress Note The services requested require additional review. You will be contacted regarding the status of this request if further information is needed. An authorization decision will be made within the required timeframes and details of that decision may be found under the member's authorization history. Member Name Member ID Member Subscriber Name Subscriber ID HEATHERANGELIQUE Kelley ESTRELLA [id number] 1970 HEATHER DE LA ROSA [id number] Pended Authorization # Client Authorization # Type of Request [id number] CONCURRENT Date of Admission/ Start of Services Requested From Submission Date 11/02/2017 11/05/2017 11/06/2017 Level of Service Type of Service Level of Care Type of Care INPATIENT/HLOC Mental Health Inpatient Inpatient Hospital - Inpatient Hospital Reason Code P76 Provider Name & Address Provider ID Provider Alternate ID NPI # for Authorization IRAJ [id number] [id number] [facility] DIV[facility] [id number]
== END 2017-11-06 12:39 | DRG 750 ==
LOC: ERH 17:02 → CP SOUTH 11-02 10:48 → ERHI 11-02 10:48 → ENTRNSPT 11-02 11:40 → EDTRNSPT 11-02 11:54 → EDTRNSPTSTS 11-02 11:54 → CP SOUTH 11-02 12:12 → CMPTRNSPT 11-02 12:15 → CP SOUTH 11-06 12:39
PROVIDERS: Emergency Medicine
DX: F25.0 Schizoaffective disorder, bipolar type (principal); K21.9 Gastro-esophageal reflux disease without esophagitis; I10 Essential (primary) hypertension; Z87.820 Personal history of traumatic brain injury; B18.2 Chronic viral hepatitis C; F12.90 Cannabis use, unspecified, uncomplicated; F11.90 Opioid use, unspecified, uncomplicated
CPT/HCPCS: 36415; 80307; 93005; 93010; G0463; G0480